=== PATIENT | female | born 1950 | race Caucasian/White ===

== ENCOUNTER 2019-01-06 14:20 | Emergency (ER) | payer OTHER ==
--- OUTSIDE RECORDS SUMMARY | 2019-01-06 14:28 | XMS REPORT ---
:1950 [facility] Address [address] [place] [address] Dr. [address] [place] [id number] Care Team Providers Name Role Phone Unavailable Unavailable Unavailable Problems This patient has no known problems. Allergies, Adverse Reactions, Alerts This patient has no known allergies or adverse reactions. Medications This patient has no known medications.
--- OUTSIDE RECORDS SUMMARY | 2019-01-06 14:28 | XMS REPORT ---
:1950 Author Organization e[employer] Care Team Providers Name Role Phone Jose Woodson Provider Role Unavailable Allergies No Known Allergies Problems Problem Type Condition Code Onset Dates Condition Status Problem Abnormal mammogram R92.8 Active Problem Family history of breast cancer Z80.3 Active Problem Anxiety disorder F41.9 Active Problem Biliary dyskinesia K82.8 Active Problem Memory loss R41.3 Active Problem Benign essential HTN I10 Active Problem Osteoporosis M81.0 Active Problem Diverticulosis large intestine w/o K57.30 Active perforation or abscess w/o bleeding Problem Hypothyroidism E03.9 Active Assessment Benign essential HTN I10 Active Assessment Osteoporosis M81.0 Active Assessment Memory loss R41.3 Active Assessment Anxiety disorder F41.9 Active Assessment Hypothyroidism E03.9 Active Medications Medication Code Code Instructions Start End Status Dosage System Date Date Ramipril [facility] 01849743220 10 MG Orally Active 1 capsule Once a day [place] Thyroid [facility] 58120228383 15 MG Orally March 11, Active 1 tablet Once a day 2017 on an empty stomach (60 mg + 15 mg) Ecotrin Low [facility] 46565513354 81 MG Orally Active 1 tablet Strength Once a day Xanax [facility] 74549295564 0.25 MG Orally Active 1 tablet once a day PRN Vitamin B12 [facility] 88155676499 1000 MCG Orally Active 1 tablet Once a day Carvedilol [facility] 71587570923 12.5 MG Orally Active 1 tab BID Biotin Maximum [facility] 10273329888 5000 MCG Orally Active 1 capsule Strength Once a day Folic Acid [facility] 75700427548 400 MCG Orally Active 1 tablet Once a day Zofran [facility] 90928131582 4 MG Orally Active not defined Singulair [facility] 63076964675 10 MG Orally Active 1 tablet Once a day in the evening Vitamin D3 [facility] 60843345282 2000 UNIT Orally Active 1 capsule Once a day Magnesium [facility] 05644132649 250 MG Orally Active 1 tablet Once a day with a meal [place] Thyroid [facility] 06786652779 60 MG Orally Active 1 tablet Once a day on an empty stomach (60 mg + 15 mg) [place] Thyroid [facility] 79782336568 60 Active TAKE ONE TABLET BY MOUTH DAILY Potassium [facility] 43769383164 550 MG Orally Active 1 tablet Gluconate Once a day Claritin [facility] 79941858218 10 MG Orally Active 1 tablet Once a day CoQ10 [facility] 56360987177 100 MG Orally Active 1 capsule Once a day with a meal Loratadine [facility] 22344021636 5 MG/5ML Orally Active 10 ml Once a day Turmeric [facility] 22632490274 500 MG Orally Active not defined Results No Known Results Summary Purpose eClinicalWorks Submission
--- OUTSIDE RECORDS SUMMARY | 2019-01-06 14:28 | XMS REPORT ---
:1950 Author Organization [employer] Care Team Providers Name Role Phone WoodsonJose Provider Role Unavailable Allergies No Known Allergies Problems Problem Type Condition Code Onset Dates Condition Status Problem Family history of breast cancer Z80.3 Active Problem Osteoporosis M81.0 Active Problem Abnormal mammogram R92.8 Active Assessment Benign essential HTN I10 Active Problem Memory loss R41.3 Active Problem Anxiety disorder F41.9 Active Problem Vascular dementia without behavioral F01.50 Active disturbance Problem Hypothyroidism E03.9 Active Problem Benign essential HTN I10 Active Problem Biliary dyskinesia K82.8 Active Problem Diverticulosis large intestine w/o K57.30 Active perforation or abscess w/o bleeding Medications Medication Code System Code Instructions Start Date End Date Status Dosage Carvedilol [facility] 88200035422 12.5 MG Orally Active 1 tab BID Results No Known Results Summary Purpose [employer] Submission
--- OUTSIDE RECORDS SUMMARY | 2019-01-06 14:28 | XMS REPORT ---
:1950 Author Organization [employer] Care Team Providers Name Role Phone Jose Woodson Provider Role Unavailable Allergies No Known Allergies Problems Problem Type Condition Code Onset Dates Condition Status Problem Abnormal mammogram R92.8 Active Problem Family history of breast cancer Z80.3 Active Assessment Hypothyroidism E03.9 Active Problem Anxiety disorder F41.9 Active Problem Biliary dyskinesia K82.8 Active Problem Memory loss R41.3 Active Problem Benign essential HTN I10 Active Problem Osteoporosis M81.0 Active Problem Diverticulosis large intestine w/o K57.30 Active perforation or abscess w/o bleeding Problem Hypothyroidism E03.9 Active Medications Medication Code Code Instructions Start End Status Dosage System Date Date [place] Thyroid [facility] 50439302053 60 MG Orally Inactive 1 tablet Once a day on an empty stomach (60 mg + 15 mg) [place] Thyroid [facility] 13032914167 60 MG Orally Active 1 tab on Once a day an empty stomach with 15mg=75mg Ecotrin Low [facility] 13155063065 81 MG Orally Active 1 tablet Strength Once a day CoQ10 [facility] 48188554745 100 MG Orally Active 1 capsule Once a day with a meal Zofran [facility] 42187630159 4 MG Orally Active not defined Claritin [facility] 61968366463 10 MG Orally Active 1 tablet Once a day Loratadine [facility] 38612901504 5 MG/5ML Orally Active 10 ml Once a day Singulair [facility] 29517645518 10 MG Orally Active 1 tablet Once a day in the evening Turmeric [facility] 38384517657 500 MG Orally Active not defined Ramipril [facility] 33388642504 10 MG Orally Active 1 capsule Once a day Carvedilol [facility] 21893689770 12.5 MG Orally Active 1 tab BID Vitamin D3 [facility] 00200407091 2000 UNIT Active 1 capsule Orally Once a day Magnesium [facility] 41914380241 250 MG Orally Active 1 tablet Once a day with a meal [place] Thyroid [facility] 70297187735 60 Active TAKE ONE TABLET BY MOUTH DAILY [place] Thyroid [facility] 77264658913 15 MG Orally March 11, Active 1 tablet Once a day 2017 on an empty stomach with 60mg=75mg Biotin Maximum [facility] 09190430936 5000 MCG Orally Active 1 capsule Strength Once a day Xanax [facility] 11580808992 0.25 MG Orally Active 1 tablet once a day PRN Folic Acid [facility] 64605052042 400 MCG Orally Active 1 tablet Once a day Vitamin B12 [facility] 84007632742 1000 MCG Orally Active 1 tablet Once a day Potassium [facility] 63457679393 550 MG Orally Active 1 tablet Gluconate Once a day Results No Known Results Summary Purpose eClinicalWorks Submission
--- OUTSIDE RECORDS SUMMARY | 2019-01-06 14:28 | XMS REPORT ---
:1950 Author Organization eClinicalWorks Care Team Providers Name Role Phone Jaskaran Woodsonh Provider Role Unavailable Allergies, Adverse Reactions, Alerts Substance Reaction Event Type Flagyl Info Not Available Drug Allergy Demerol Info Not Available Drug Allergy Amlodipine Besylate Info Not Available Drug Allergy Alendronate Sodium Info Not Available Drug Allergy Problems Problem Type Condition Code Onset Dates Condition Status Problem Family history of breast cancer Z80.3 Active Problem Osteoporosis M81.0 Active Problem Abnormal mammogram R92.8 Active Problem Memory loss R41.3 Active Problem Anxiety disorder F41.9 Active Problem Vascular dementia without behavioral F01.50 Active disturbance Problem Hypothyroidism E03.9 Active Problem Benign essential HTN I10 Active Problem Biliary dyskinesia K82.8 Active Problem Diverticulosis large intestine w/o K57.30 Active perforation or abscess w/o bleeding Assessment Memory loss R41.3 Active Assessment Renal insufficiency N28.9 Active Assessment Osteoporosis M81.0 Active Assessment Vascular dementia without behavioral F01.50 Active disturbance Assessment Anxiety disorder F41.9 Active Assessment Hypothyroidism E03.9 Active Assessment Benign essential HTN I10 Active Medications Medication Code Code Instructions Start End Status Dosage System Date Date Folic Acid [facility] 52185370421 400 MCG Orally Active 1 tablet Once a day Ramipril [facility] 88128346082 10 MG Orally Inactive 1 capsule Once a day Vitamin B12 [facility] 74662651743 1000 MCG Orally Active 1 tablet Once a day Potassium [facility] 61017191137 550 MG Orally Active 1 tablet Gluconate Once a day Loratadine [facility] 03978184504 5 MG/5ML Orally Active 10 ml Once a day Biotin [facility] 77150518581 5000 MCG Orally Active 1 capsule Maximum Once a day Strength Loratadine [facility] 31763896065 5 MG/5ML Orally Active 10 ml Once a day [place] [facility] 33439131167 60 MG Orally Active 1 tablet Thyroid Once a day on an empty stomach (60 mg + 15 mg) Turmeric [facility] 64054101767 500 MG Orally Active not defined Singulair [facility] 15338056058 10 MG Orally Active 1 tablet Once a day in the evening Xanax [facility] 12521420559 0.25 MG Orally Active 1 tablet once a day PRN Claritin [facility] 46644726253 10 MG Orally Active 1 tablet Once a day Zofran [facility] 34559839016 4 MG Orally Active not defined Ramipril [facility] 79973654606 10 MG Orally Active 1 capsule BID Carvedilol [facility] 91817909974 12.5 MG Orally Active 1 tab BID Magnesium [facility] 18730585750 250 MG Orally Active 1 tablet Once a day with a meal [place] [facility] [address]-88 60 MG Orally Active 1 tablet Thyroid Once a day on an empty stomach CoQ10 [facility] 25906411458 100 MG Orally Active 1 capsule Once a day with a meal Ecotrin Low [facility] 47472618941 81 MG Orally Active 1 tablet Strength Once a day Vitamin D3 [facility] 48030224287 2000 UNIT Active 1 capsule Orally Once a day Results No Known Results Summary Purpose eClinicalWorks Submission
--- OUTSIDE RECORDS SUMMARY | 2019-01-06 14:28 | XMS REPORT ---
[...] Start End Status Dosage System Date Date Biotin Maximum [facility] 85648963454 5000 MCG Orally Active 1 capsule Strength Once a day Zofran [facility] 97874672708 4 MG Orally Active not defined Folic Acid [facility] 47492726699 400 MCG Orally Active 1 tablet Once a day Ramipril [facility] [address]-16 10 MG Orally Active 1 capsule Twice a day Turmeric [facility] 41308557710 500 MG Orally Active not defined Vitamin B12 [facility] 71479815350 1000 MCG Orally Active 1 tablet Once a day Singulair [facility] 97491768016 10 MG Orally Active 1 tablet Once a day in the evening Loratadine [facility] 76097420584 5 MG/5ML Orally Active 10 ml Once a day Ecotrin Low [facility] 32006311491 81 MG Orally Active 1 tablet Strength Once a day [place] Thyroid [facility] 39761123717 15 MG Orally March 11, Active 1 tablet Once a day 2017 on an empty stomach with 60mg=75mg Carvedilol [place] 73080510571 12.5 MG Orally Active 1 tab BID Vitamin D3 [facility] 27069965460 2000 UNIT Active 1 capsule Orally Once a day Potassium [facility] 11413301222 550 MG Orally Active 1 tablet Gluconate Once a day [place] Thyroid [facility] 15691195263 60 MG Orally Active 1 tab on Once a day an empty stomach with 15mg=75mg CoQ10 [facility] 05868748728 100 MG Orally Active 1 capsule Once a day with a meal Magnesium [facility] 27069987829 250 MG Orally Active 1 tablet Once a day with a meal Claritin [facility] 73945754187 10 MG Orally Active 1 tablet Once a day Xanax [facility] 54114904647 0.25 MG Orally Active 1 tablet once a day PRN Results No Known Results Summary Purpose eClinicalWorks Submission
--- OUTSIDE RECORDS SUMMARY | 2019-01-06 14:28 | XMS REPORT ---
:1950 Author Organization eClinicalWorks Care Team Providers Name Role Phone Chintan Jose Provider Role Unavailable Allergies No Known Allergies [...] w/o bleeding Problem Hypothyroidism E03.9 Active Medications No Known Medications Results No Known Results Summary Purpose [employer] Submission
--- OUTSIDE RECORDS SUMMARY | 2019-01-06 14:29 | XMS REPORT ---
:1950 Author Organization eClinicalWorks Care Team Providers Name Role Phone Jose Woodson Provider Role Unavailable Allergies No Known Allergies Problems Problem Type Condition Code Onset Dates Condition Status Problem Abnormal mammogram R92.8 Active Problem Benign essential HTN I10 Active Problem Osteoporosis M81.0 Active Problem Family history of breast cancer Z80.3 Active Problem Vascular dementia without behavioral F01.50 Active disturbance Problem Memory loss R41.3 Active Problem Allergic rhinitis, unspecified J30.9 Active seasonality, unspecified trigger Problem Diverticulosis large intestine w/o K57.30 Active perforation or abscess w/o bleeding Problem Hypothyroidism E03.9 Active Problem Anxiety disorder F41.9 Active Problem Biliary dyskinesia K82.8 Active Medications No Known Medications Results No Known Results Summary Purpose eClinicalWorks Submission
--- OUTSIDE RECORDS SUMMARY | 2019-01-06 14:29 | XMS REPORT ---
:1950 Author Organization eClinicalWorks Care Team Providers Name Role Phone WoodsonJose Provider Role Unavailable Allergies No Known Allergies Problems Problem Type Condition Code Onset Dates Condition Status Problem Abnormal mammogram R92.8 Active Problem Benign essential HTN I10 Active Problem Osteoporosis M81.0 Active Assessment Benign essential HTN I10 Active Problem Family history of breast cancer Z80.3 Active Problem Vascular dementia without behavioral F01.50 Active disturbance Problem Memory loss R41.3 Active Problem Allergic rhinitis, unspecified J30.9 Active seasonality, unspecified trigger Problem Diverticulosis large intestine w/o K57.30 Active perforation or abscess w/o bleeding Problem Hypothyroidism E03.9 Active Problem Anxiety disorder F41.9 Active Problem Biliary dyskinesia K82.8 Active Medications Medication Code Code Instructions Start End Status Dosage System Date Date [place] Thyroid [facility] 67220138736 60 MG Orally Active 1 tablet Once a day on an empty stomach Carvedilol [facility] 24468428130 12.5 MG Orally Active 1 tab twice a day Results No Known Results Summary Purpose [employer]ClinicalWorks Submission
--- OUTSIDE RECORDS SUMMARY | 2019-01-06 14:29 | XMS REPORT ---
:1950 Author Organization eClinicalWorks Care Team Providers Name Role Phone WoodsonJaskaranh Provider Role Unavailable Allergies, Adverse Reactions, Alerts Substance Reaction Event Type Flagyl Info Not Available Drug Allergy Demerol Info Not Available Drug Allergy Amlodipine Besylate Info Not Available Drug Allergy Alendronate Sodium Info Not Available Drug Allergy Problems Problem Type Condition Code Onset Dates Condition Status Problem Abnormal mammogram R92.8 Active Problem Benign essential HTN I10 Active Problem Osteoporosis M81.0 Active Assessment Chronic sinusitis, unspecified J32.9 Active location Assessment Allergic rhinitis, unspecified J30.9 Active seasonality, unspecified trigger Problem Family history of breast cancer Z80.3 Active Problem Vascular dementia without behavioral F01.50 Active disturbance Problem Memory loss R41.3 Active Problem Allergic rhinitis, unspecified J30.9 Active seasonality, unspecified trigger Problem Diverticulosis large intestine w/o K57.30 Active perforation or abscess w/o bleeding Problem Hypothyroidism E03.9 Active Problem Anxiety disorder F41.9 Active Problem Biliary dyskinesia K82.8 Active Medications Medication Code Code Instructions Start End Date Status Dosage System Date Magnesium [facility] 02778092177 250 MG Orally Active 1 tablet Once a day with a meal Turmeric [facility] 35480983347 500 MG Orally Active not defined Carvedilol [facility] 10942408370 12.5 MG Orally Active 1 tab BID Claritin [facility] 84774689584 10 MG Orally Active 1 tablet Once a day Ecotrin Low [facility] 70161264031 81 MG Orally Active 1 tablet Strength Once a day Ramipril [place] 70849201703 10 MG Orally BID Active 1 capsule Vitamin B12 [facility] 04330906801 1000 MCG Orally Active 1 tablet Once a day [place] Thyroid [facility] 03943008103 60 MG Orally Active 1 tablet Once a day on an empty stomach (60 mg 15 mg) Tessalon [facility] 99021330797 100 MG Orally October Active 1 capsule [place] Three times a 2018 as needed day Zofran [facility] 05231354358 4 MG Orally Active not defined Singulair [facility] 19869737775 10 MG Orally Active 1 tablet Once a day in the evening Folic Acid [facility] 44268701185 400 MCG Orally Active 1 tablet Once a day CoQ10 [facility] 87121523899 100 MG Orally Active 1 capsule Once a day with a meal Biotin Maximum [facility] 36514627728 5000 MCG Orally Active 1 capsule Strength Once a day [place] Thyroid [facility] 18322645366 60 MG Orally Active 1 tablet Once a day on an empty stomach Vitamin D3 [facility] 48441393801 2000 UNIT Orally Active 1 capsule Once a day Potassium [facility] 16985954293 550 MG Orally Active 1 tablet Gluconate Once a day Xanax [facility] 52077716924 0.25 MG Orally Active 1 tablet once a day PRN Results No Known Results Summary Purpose eClinicalWorks Submission
--- OUTSIDE RECORDS SUMMARY | 2019-01-06 14:29 | XMS REPORT ---
[...] or abscess w/o bleeding Medications Medication Code Code Instructions Start End Date Status [facility]osage [facility] MG Orally October Active 1 capsule [place] Three times a 2018 as needed day Results No Known Results Summary Purpose eClinicalWorks Submission
--- OUTSIDE RECORDS SUMMARY | 2019-01-06 14:29 | XMS REPORT ---
[...] Active Problem Abnormal mammogram R92.8 Active Assessment Cough R05 Active Assessment Upper respiratory tract infection, J06.9 Active unspecified type Problem Memory loss R41.3 Active Problem Anxiety disorder F41.9 Active Problem Vascular dementia without behavioral F01.50 Active disturbance Problem Hypothyroidism E03.9 Active Problem Benign essential HTN I10 Active Problem Biliary dyskinesia K82.8 Active Problem Diverticulosis large intestine w/o K57.30 Active perforation or abscess w/o bleeding Medications Medication Code Code Instructions Start End Date Status Dosage System Date CoQ10 [facility] 52594558203 100 MG Orally Active 1 capsule Once a day with a meal Vitamin B12 [facility] 24998351550 1000 MCG Orally Active 1 tablet Once a day Magnesium [facility] 93274891406 250 MG Orally Active 1 tablet Once a day with a meal [place] Thyroid [facility] [address]-55 60 MG Orally Active 1 tablet Once a day on an empty stomach Xanax [facility] 78678984147 0.25 MG Orally Active 1 tablet once a day PRN Loratadine [facility] 20873649521 5 MG/5ML Orally Active 10 ml Once a day Carvedilol [place] 94008185573 12.5 MG Orally Active 1 tab BID Vitamin D3 [place] 75682801424 2000 UNIT Active 1 capsule Orally Once a day Ramipril ND 26964712271 10 MG Orally Active 1 capsule BID [place] Thyroid [facility] 08539733178 60 MG Orally Active 1 tablet Once a day on an empty stomach (60 mg 15 mg) Singulair [facility] 86676018627 10 MG Orally Active 1 tablet Once a day in the evening Biotin Maximum [facility] 30182223478 5000 MCG Orally Active 1 capsule Strength Once a day Folic Acid [facility] 93526388094 400 MCG Orally Active 1 tablet Once a day Ecotrin Low [facility] 03331520935 81 MG Orally Active 1 tablet Strength Once a day Claritin [facility] 58589277947 10 MG Orally Active 1 tablet Once a day Benzonatate [facility] 17672028023 200 MG Orally Oct 13October Active 1 capsule Three times a 2018 day Turmeric [facility] 33917016053 500 MG Orally Active not defined Potassium [facility] 87492519007 550 MG Orally Active 1 tablet Gluconate Once a day Zofran [facility] 65729470991 4 MG Orally Active not defined Results No Known Results Summary Purpose eClinicalWorks Submission
--- OUTSIDE RECORDS SUMMARY | 2019-01-06 14:29 | XMS REPORT ---
:1950 Author Organization eClinicalWorks Care Team Providers Name Role Phone Jose Woodson Provider Role Unavailable Allergies No Known Allergies Problems Problem Type Condition Code Onset Dates Condition Status Problem Family history of breast cancer Z80.3 Active Problem Osteoporosis M81.0 Active Problem Abnormal mammogram R92.8 Active Assessment Encounter for screening mammogram Z12.31 Active for breast cancer Problem Memory loss R41.3 Active Problem Anxiety disorder F41.9 Active Problem Vascular dementia without behavioral F01.50 Active disturbance Problem Hypothyroidism E03.9 Active Problem Benign essential HTN I10 Active Problem Biliary dyskinesia K82.8 Active Problem Diverticulosis large intestine w/o K57.30 Active perforation or abscess w/o bleeding Medications No Known Medications Results No Known Results Summary Purpose eClinicalWorks Submission
--- OUTSIDE RECORDS SUMMARY | 2019-01-06 14:29 | XMS REPORT ---
:1950 Author Organization [employer] Care Team Providers Name Role Phone WoodsonJose Provider Role Unavailable Allergies, Adverse Reactions, Alerts Substance Reaction Event Type Flagyl Info Not Available Drug Allergy Demerol Info Not Available Drug Allergy Amlodipine Besylate Info Not Available Drug Allergy Alendronate Sodium Info Not Available Drug Allergy Problems Problem Type Condition Code Onset Dates Condition Status Problem Abnormal mammogram R92.8 Active Problem Benign essential HTN I10 Active Problem Osteoporosis M81.0 Active Problem Vascular dementia without behavioral F01.50 Active disturbance Assessment Renal insufficiency N28.9 Active Problem Memory loss R41.3 Active Assessment Memory loss R41.3 Active Assessment Adult BMI 29.0-29.9 kg/sq m Z68.29 Active Problem Allergic rhinitis, unspecified J30.9 Active seasonality, unspecified trigger Problem Diverticulosis large intestine w/o K57.30 Active perforation or abscess w/o bleeding Problem Hypothyroidism E03.9 Active Problem Anxiety disorder F41.9 Active Problem Biliary dyskinesia K82.8 Active Assessment Chronic sinusitis, unspecified J32.9 Active location Assessment Vascular dementia without behavioral F01.50 Active disturbance Assessment Anxiety disorder F41.9 Active Assessment Benign essential HTN I10 Active Assessment Medicare annual wellness visit, Z00.00 Active subsequent Assessment Hypothyroidism E03.9 Active Assessment Allergic rhinitis, unspecified J30.9 Active seasonality, unspecified trigger Assessment History of fall within past 90 days Z91.81 Active Assessment Osteoporosis M81.0 Active Problem Family history of breast cancer Z80.3 Active Medications Medication Code Code Instructions Start End Status Dosage System Date Date Potassium ND 37220809035 550 MG Orally Active 1 tablet Gluconate Once a day Turmeric ND 50333096876 500 MG Orally Active not defined Ramipril ND 28852670114 10 MG Orally BID Active 1 capsule [place] Thyroid ND 40168321331 60 MG Orally Active 1 tablet on Once a day an empty stomach Prolia ND 98394457673 60 MG/ML May 01, Active as directed Subcutaneous 2019 Carvedilol [facility] 10215641178 12.5 MG Orally Active 1 tab BID Vitamin B12 ND 30013680647 1000 MCG Orally Active 1 tablet Once a day Zofran [facility] 58329269075 4 MG Orally Active not defined Singulair [facility] 31681681384 10 MG Orally Active 1 tablet in Once a day the evening Magnesium [facility] 77336063280 250 MG Orally Active 1 tablet Once a day with a meal Vitamin D3 [facility] 76823579105 2000 UNIT Orally Active 1 capsule Once a day Folic Acid [facility] 05590043895 400 MCG Orally Active 1 tablet Once a day Ecotrin Low [facility] 57384718266 81 MG Orally Active 1 tablet Strength Once a day Claritin [facility] 92872319781 10 MG Orally Active 1 tablet Once a day [place] Thyroid [facility] 23969155910 60 MG Orally Active 1 tablet on Once a day an empty stomach Xanax [facility] 88936338784 0.25 MG Orally Active 1 tablet once a day PRN CoQ10 [facility] 37455470159 100 MG Orally Active 1 capsule Once a day with a meal Biotin Maximum [facility] 60595008207 5000 MCG Orally Active 1 capsule Strength Once a day Results No Known Results Summary Purpose [employer]ClinicalWorks Submission
--- OUTSIDE RECORDS SUMMARY | 2019-01-06 14:29 | XMS REPORT ---
[...] Start End Status Dosage System Date Date [place] Thyroid [facility] 36824262078 60 MG Orally Active 1 tablet Once a day on an empty stomach (60 mg 15 mg) [place] Thyroid [facility] [address]-29 60 MG Orally Active 1 tablet Once a day on an empty stomach Potassium [facility] 05005253885 550 MG Orally Active 1 tablet Gluconate Once a day CoQ10 [facility] 36228404880 100 MG Orally Active 1 capsule Once a day with a meal Singulair [facility] 18454313708 10 MG Orally Active 1 tablet Once a day in the evening Vitamin D3 [facility] 89301098548 2000 UNIT Active 1 capsule Orally Once a day Loratadine [facility] 31315322497 5 MG/5ML Orally Active 10 ml Once a day Magnesium [facility] 21854723611 250 MG Orally Active 1 tablet Once a day with a meal Biotin Maximum [facility] 67222503758 5000 MCG Orally Active 1 capsule Strength Once a day Vitamin B12 [facility] 58577261784 1000 MCG Orally Active 1 tablet Once a day Turmeric [facility] 46025135191 500 MG Orally Active not defined Zofran ND 02417801746 4 MG Orally Active not defined Xanax [facility] 13162778726 0.25 MG Orally Active 1 tablet once a day PRN Ecotrin Low [facility] 09361248599 81 MG Orally Active 1 tablet Strength Once a day Claritin [facility] 76077852277 10 MG Orally Active 1 tablet Once a day Carvedilol [facility] 67343711702 12.5 MG Orally Active 1 tab BID Ramipril [facility] 71312322825 10 MG Orally Active 1 capsule BID Folic Acid [facility] 35041975171 400 MCG Orally Active 1 tablet Once a day Results No Known Results Summary Purpose [employer]ClinicalWorks Submission
--- OUTSIDE RECORDS SUMMARY | 2019-01-06 14:30 | XMS REPORT ---
[...] Biliary dyskinesia K82.8 Active Medications Medication Code System Code Instructions Start End Date Status Dosage Date Ramipril [facility] 73502227439 10 MG Orally BID Active 1 capsule Results No Known Results Summary Purpose [employer] Submission
[2019-01-06 15:39] LABS: Urine Amorphous Sediment 1+ /HPF (NONE SEEN); Urine Bacteria 20-50 /HPF (<20); Urine RBC <5 /HPF (NONE SEEN)
[2019-01-06 15:40] LABS: Urine Blood NEGATIVE (NEG); Urine Glucose NEGATIVE (NEG); Urine Protein 1+ (NEG); Urine Specific Gravity >1.030 (1.005-1.030)
[2019-01-06 15:40] LABS: Urine Culture Reflex Order REFLEXED
--- NOTE | 2019-01-06 15:53 | RAD REPORT ---
EXAM DESCRIPTION: RAD - Hip Left 2 View - 01/06/2019 3:42 pm CLINICAL HISTORY: Left hip pain status post injury FINDINGS: No fracture or dislocation is seen. Osteoporosis
--- NOTE | 2019-01-06 16:03 | RAD REPORT ---
EXAM DESCRIPTION: RAD - Spine Thoracic W/Swimmers - 01/06/2019 3:49 pm CLINICAL HISTORY: Back pain FINDINGS: The alignment of the thoracic spine is satisfactory. No fracture is seen. No dislocation Osteoporosis Mild spondylosis
--- NOTE | 2019-01-06 16:25 | ER ---
Nurse's Notes [facility] Name: Laisha Vasquez Age: 68 yrs Sex: Female : 1950 Arrival Date: 01/06/2019 Time: 14:23 Bed 27 Private MD: Diagnosis: Fall on same level from slipping, tripping and stumbling;Mid back pain from fall;Pain in left hip-from fall Presentation: 01/06 14:25 Presenting complaint: Patient states: Back pain after a fall 2 weeks ago, pt la1 ambulatory, transitions from sitting to standing without difficulty, denies loss of continence. Transition of care: patient was not received from another setting of care. Onset of symptoms was January 06, 2019. Risk Assessment: Do you want to hurt yourself or someone else? Patient reports no desire to harm self or others. Initial Sepsis Screen: Does the patient meet any 2 criteria? No. Patient's initial sepsis screen is negative. Does the patient have a suspected source of infection? No. Patient's initial sepsis screen is negative. Care prior to arrival:. 14:25 Method Of Arrival: Ambulatory la1 14:25 Acuity: BEV 4 la1 Historical: - Allergies: 14:25 amlodipine; la1 14:25 Codeine; la1 14:25 Demerol; la1 14:25 METRONIDAZOLE; la1 - PMHx: 14:25 Hypertension; Hypothyroidism; la1 - Immunization history:: Adult Immunizations up to date. - Social history:: Smoking status: Patient/guardian denies using tobacco. - Ebola Screening: : No symptoms or risks identified at this time. Screenin:14 Abuse screen: Denies threats or abuse. Denies injuries from another. Nutritional mg2 screening: No deficits noted. Tuberculosis screening: No symptoms or risk factors identified. Fall Risk Fall in past 12 months (25 points). Assessment: 15:07 General: Appears in no apparent distress. comfortable, Behavior is calm, cooperative. mg2 Pain: Complains of pain in back Pain does not radiate. Pain currently is 5 out of 10 on a pain scale. Quality of pain is described as aching. Neuro: Level of Consciousness is awake, alert, obeys commands, Oriented to person, place, time, situation. Cardiovascular: Capillary refill < 3 seconds Patient's skin is warm and dry. Respiratory: Airway is patent Respiratory effort is even, unlabored, Respiratory pattern is regular, symmetrical. GI: No signs and/or symptoms were reported involving the gastrointestinal system. : pls see urine dip. EENT: No signs and/or symptoms were reported regarding the EENT system. Derm: Skin is intact, is healthy with good turgor, Skin is pink, warm \T\ dry. normal. Musculoskeletal: Circulation, motion, and sensation intact. Capillary refill < 3 seconds. 16:37 Reassessment: Patient states feeling better. mg2 Vital Signs: 14:27 BP 113 / 57; Pulse 62; Resp 16; Temp 98.5; Pulse Ox 98% on R/A; Weight 72.57 kg; Height la1 5 ft. 2 in. (157.48 cm); Pain 9/10; 16:36 BP 120 / 78; Pulse 65; Resp 18; Temp 98; Pulse Ox 100% on R/A; Pain 2/10; mg2 14:27 Body Mass Index 29.26 (72.57 kg, 157.48 cm) la1 ED Course: 14:23 Patient arrived in ED. mr 14:26 Triage completed. la1 14:26 Arm band placed on left wrist. la1 14:48 Rossi Herron RN is Primary Nurse. ls4 14:53 Ezio Barrientos PA is PHCP. cp 14:53 Yordan Gandhi MD is Attending Physician. cp 15:43 XRAY Hip LEFT 2 view In Process Unspecified. EDMS 15:48 XRAY Thoracic Spine (W/swimmers) In Process Unspecified. EDMS 16:37 Patient has correct armband on for positive identification. mg2 16:37 No provider procedures requiring assistance completed. Patient did not have IV access mg2 during this emergency room visit. Administered Medications: No medications were administered Outcome: 16:25 Discharge ordered by MD. cp 16:37 Discharged to home ambulatory. mg2 16:37 Condition: good 16:37 Discharge instructions given to patient, Instructed on discharge instructions, follow up and referral plans. medication usage, Demonstrated understanding of instructions, follow-up care, medications, Prescriptions given X 2. 16:38 Patient left the ED. mg2 Signatures: Dispatcher [employer] EDFL Angi Eaton mr Jimbo Hernandez RN RN la1 Ezio Barrientos PA PA cp Gardose, Michele, RN RN mg2 Rossi Herron, RN RN ls4
--- NOTE | 2019-01-06 16:25 | EDPHYS ---
Physician Documentation [facility] Name: Laisha Vasquez Age: 68 yrs Sex: Female : 1950 Arrival Date: 01/06/2019 Time: 14:23 Bed 27 Private MD: ED Physician Yordan Gandhi HPI: 01/06 15:11 This 68 yrs old Female presents to ER via Ambulatory with complaints of Back cp Pain. 15:11 The patient presents with pain that is acute, and an injury. The symptoms are located cp in the thoracic area. Onset: The symptoms/episode began/occurred 2-3 weeks ago, Easter weekend, after fall backwards onto back from standing position while in parking lot. The pain does not radiate. Associated signs and symptoms: Pertinent positives: left hip pain, Pertinent negatives: abdominal pain, chest pain, fever, incontinence, numbness, weakness. Historical: - Allergies: 14:25 amlodipine; la1 14:25 Codeine; la1 14:25 Demerol; la1 14:25 METRONIDAZOLE; la1 - PMHx: 14:25 Hypertension; Hypothyroidism; la1 - Immunization history:: Adult Immunizations up to date. - Social history:: Smoking status: Patient/guardian denies using tobacco. - Ebola Screening: : No symptoms or risks identified at this time. ROS: 15:20 Constitutional: Negative for body aches, chills, fever, poor PO intake. cp 15:20 Eyes: Negative for injury, pain, redness, and discharge. cp 15:20 ENT: Negative for drainage from ear(s), ear pain, sore throat, difficulty swallowing, difficulty handling secretions. 15:20 Neck: Negative for pain with movement, pain at rest, stiffness, bony tenderness. 15:20 Cardiovascular: Negative for chest pain, edema, palpitations. 15:20 Respiratory: Negative for cough, shortness of breath, wheezing. 15:20 Abdomen/GI: Negative for abdominal pain, nausea, vomiting, and diarrhea, black/tarry stool, rectal bleeding. 15:20 Back: Positive for pain at rest, pain with movement, of the thoracic area. 15:20 MS/extremity: Positive for pain, tenderness, of the left hip, Negative for decreased range of motion, deformity, paresthesias. 15:20 Neuro: Negative for altered mental status, headache, loss of consciousness, numbness, syncope, weakness. 15:20 All other systems are negative. Exam: 15:25 Constitutional: The patient appears in no acute distress, alert, awake, non-toxic, well cp developed, well nourished. 15:25 Head/Face: Normocephalic, atraumatic. cp 15:25 Eyes: Periorbital structures: appear normal, Conjunctiva: normal, no exudate, no injection, Lids and lashes: appear normal, bilaterally. 15:25 ENT: External ear(s): are unremarkable, Nose: is normal, Mouth: Lips: moist, Oral mucosa: pink and intact, moist, Posterior pharynx: is normal, airway is patent, no erythema, no exudate. 15:25 Neck: C-spine: vertebral tenderness, is not appreciated, crepitus, is not appreciated, ROM/movement: is normal, is supple, without pain, no range of motions limitations, no nuchal rigidity. 15:25 Chest/axilla: Inspection: normal, Palpation: is normal, no crepitus, no tenderness. 15:25 Cardiovascular: Rate: normal, Rhythm: regular. 15:25 Respiratory: the patient does not display signs of respiratory distress, Respirations: normal, no use of accessory muscles, no retractions, no splinting, no tachypnea, labored breathing, is not present, Breath sounds: are clear throughout, no decreased breath sounds, no stridor, no wheezing. 15:25 Abdomen/GI: Inspection: abdomen appears normal, Bowel sounds: active, all quadrants, Palpation: abdomen is soft and non-tender, in all quadrants. 15:25 Back: pain, that is mild, of the thoracic area, ROM is painful, with flexion, muscle spasm, is not present, Straight leg raises: of both lower extremities does not illicit pain. 15:25 Musculoskeletal/extremity: Joints: All joints are normal except the left hip displays tenderness. 15:25 Skin: no rash present. 15:25 Neuro: Orientation: to person, place \T\ time. Mentation: is normal, Cerebellar function: is grossly normal, Motor: moves all fours, strength is normal, Sensation: is normal, Gait: is steady. Vital Signs: 14:27 BP 113 / 57; Pulse 62; Resp 16; Temp 98.5; Pulse Ox 98% on R/A; Weight 72.57 kg; Height la1 5 ft. 2 in. (157.48 cm); Pain 9/10; 16:36 BP 120 / 78; Pulse 65; Resp 18; Temp 98; Pulse Ox 100% on R/A; Pain 2/10; mg2 14:27 Body Mass Index 29.26 (72.57 kg, 157.48 cm) la1 MDM: 14:53 Patient medically screened. cp 16:00 Differential diagnosis: Fracture spinal injury, Ureterolithiasis vertebral fracture. cp 16:25 Data reviewed: vital signs, nurses notes, radiologic studies, plain films, and as a cp result, I will discharge patient. 01/06 14:54 Order name: Urine Microscopic Only; Complete Time: 16:19 cp 01/06 16:20 Interpretation: Normal except: UBACT 20-50; SQEPI 5-10. cp 01/06 15:15 Order name: Urine Dipstick--Ancillary (enter results); Complete Time: 16:19 bd 01/06 16:20 Interpretation: Normal except: USPGR >1.030; UKET 1+; UPROT 1+. 01/06 14:54 Order name: Urine Dipstick-Ancillary (obtain specimen); Complete Time: 15:07 cp 01/06 15:11 Order name: XRAY Hip LEFT 2 view; Complete Time: 16:19 cp 01/06 16:20 Interpretation: Report reviewed. 01/06 15:11 Order name: XRAY Thoracic Spine (W/swimmers); Complete Time: 16:19 cp 01/06 16:20 Interpretation: Report reviewed. 01/06 15:42 Order name: Urine Culture EDMS Administered Medications: No medications were administered Disposition: 16:56 Co-signature as Attending Physician, Yordan Gandhi MD. rn Disposition: 01/06/19 16:25 Discharged to Home. Impression: Fall on same level from slipping, tripping and stumbling, Mid back pain from fall, Pain in left hip - from fall. - Condition is Stable. - Discharge Instructions: Back Pain, Adult, Hip Pain, Back Exercises. - Prescriptions for Mobic 7.5 mg Oral Tablet - take 1 tablet by ORAL route once daily take with food; 20 tablet. Cyclobenzaprine 10 mg Oral Tablet - take 1 tablet by ORAL route every 8 hours As needed no driving while taking medication; 20 tablet. - Medication Reconciliation Form, Thank You Letter, Antibiotic Education, Prescription Opioid Use form. - Follow up: Private Physician; When: 1 - 2 days; Reason: Recheck today's complaints. - Problem is new. - Symptoms have improved. Signatures: Dispatcher [employer] EDMS Yordan Gandhi MD MD rn Attema, Lee, RN RN la1 Ezio Barrientos PA PA cp Gardose, Michele, RN RN mg2 Corrections: (The following items were deleted from the chart) 16:38 16:25 01/06/2019 16:25 Discharged to Home. Impression: Fall on same level from mg2 slipping, tripping and stumbling; Mid back pain from fall; Pain in left hip - from fall. Condition is Stable. Forms are Medication Reconciliation Form, Thank You Letter, Antibiotic Education, Prescription Opioid Use. Follow up: Private Physician; When: 1 - 2 days; Reason: Recheck today's complaints. Problem is new. Symptoms have improved. cp
== END 2019-01-06 16:38 | disposition home or self-care (01) ==
LOC: ER 14:20
DX: M54.9 Dorsalgia, unspecified (principal); M25.552 Pain in left hip; I10 Essential (primary) hypertension; E03.9 Hypothyroidism, unspecified; Z88.1 Allergy status to other antibiotic agents; Z88.5 Allergy status to narcotic agent
CPT/HCPCS: 72072; 81003; 81015; 87086; 87088; 99283

== ENCOUNTER 2019-02-01 15:15 | Emergency (ER) | payer OTHER ==
--- OUTSIDE RECORDS SUMMARY | 2019-02-01 15:18 | XMS REPORT ---
[...] End Status Dosage System Date Date Ramipril [facility] 54913858441 10 MG Orally Active 1 capsule Once a day [place] Thyroid [facility] 73959957303 15 MG Orally March 11, Active 1 tablet Once a day 2017 on an empty stomach (60 mg + 15 mg) Ecotrin Low [facility] 36538377778 81 MG Orally Active 1 tablet Strength Once a day Xanax [facility] 94120298607 0.25 MG Orally Active 1 tablet once a day PRN Vitamin B12 [facility] 71142735585 1000 MCG Orally Active 1 tablet Once a day Carvedilol [facility] 93224430030 12.5 MG Orally Active 1 tab BID Biotin Maximum [facility] 15235170277 5000 MCG Orally Active 1 capsule Strength Once a day Folic Acid [facility] 84459620595 400 MCG Orally Active 1 tablet Once a day Zofran [facility] 33836771307 4 MG Orally Active not defined Singulair [facility] 95383644615 10 MG Orally Active 1 tablet Once a day in the evening Vitamin D3 [facility] 33163665610 2000 UNIT Orally Active 1 capsule Once a day Magnesium [facility] 38015168062 250 MG Orally Active 1 tablet Once a day with a meal [place] Thyroid [facility] 22997977897 60 MG Orally Active 1 tablet Once a day on an empty stomach (60 mg + 15 mg) [place] Thyroid [facility] 04275616743 60 Active TAKE ONE TABLET BY MOUTH DAILY Potassium [facility] 92352715965 550 MG Orally Active 1 tablet Gluconate Once a day Claritin [facility] 99062576156 10 MG Orally Active 1 tablet Once a day CoQ10 [facility] 23572617020 100 MG Orally Active 1 capsule Once a day with a meal Loratadine [facility] 13993878321 5 MG/5ML Orally Active 10 ml Once a day Turmeric [facility] 67927472623 500 MG Orally Active not defined Results No Known Results Summary Purpose eClinicalWorks Submission
--- OUTSIDE RECORDS SUMMARY | 2019-02-01 15:18 | XMS REPORT ---
[...] Start End Status Dosage System Date Date [place] Thyroid [facility] 82553955507 60 MG Orally Inactive 1 tablet Once a day on an empty stomach (60 mg + 15 mg) [place] Thyroid [facility] 43954541550 60 MG Orally Active 1 tab on Once a day an empty stomach with 15mg=75mg Ecotrin Low [facility] 24997288037 81 MG Orally Active 1 tablet Strength Once a day CoQ10 [facility] 14203003462 100 MG Orally Active 1 capsule Once a day with a meal Zofran [facility] 11048367992 4 MG Orally Active not defined Claritin [facility] 43158684951 10 MG Orally Active 1 tablet Once a day Loratadine [facility] 06234204634 5 MG/5ML Orally Active 10 ml Once a day Singulair [facility] 86628548963 10 MG Orally Active 1 tablet Once a day in the evening Turmeric [facility] 85894248030 500 MG Orally Active not defined Ramipril [facility] 61444946776 10 MG Orally Active 1 capsule Once a day Carvedilol [facility] 69973726144 12.5 MG Orally Active 1 tab BID Vitamin D3 [facility] 46919814450 2000 UNIT Active 1 capsule Orally Once a day Magnesium [facility] 98357406288 250 MG Orally Active 1 tablet Once a day with a meal [place] Thyroid [facility] 17925371531 60 Active TAKE ONE TABLET BY MOUTH DAILY [place] Thyroid [facility] 76174141747 15 MG Orally March 11, Active 1 tablet Once a day 2017 on an empty stomach with 60mg=75mg Biotin Maximum [facility] 49554670128 5000 MCG Orally Active 1 capsule Strength Once a day Xanax [facility] 16249330852 0.25 MG Orally Active 1 tablet once a day PRN Folic Acid [facility] 25659577057 400 MCG Orally Active 1 tablet Once a day Vitamin B12 [facility] 74648529638 1000 MCG Orally Active 1 tablet Once a day Potassium [facility] 33186174575 550 MG Orally Active 1 tablet Gluconate Once a day Results No Known Results Summary Purpose [employer]ClinicalWorks Submission
--- OUTSIDE RECORDS SUMMARY | 2019-02-01 15:18 | XMS REPORT ---
:1950 [facility] Address [address] [place] [address] Dr. Parker [address] [place] [id number] Care Team Providers Name Role Phone Unavailable Unavailable Unavailable Problems This patient has no known problems. Allergies, Adverse Reactions, Alerts This patient has no known allergies or adverse reactions. Medications This patient has no known medications.
--- OUTSIDE RECORDS SUMMARY | 2019-02-01 15:19 | XMS REPORT ---
[...] Medications Results No Known Results Summary Purpose [employer] Submission
--- OUTSIDE RECORDS SUMMARY | 2019-02-01 15:19 | XMS REPORT ---
[...] Status Dosage System Date Date Biotin Maximum [facility] 62232328743 5000 MCG Orally Active 1 capsule Strength Once a day Zofran [facility] 44861932398 4 MG Orally Active not defined Folic Acid [facility] 20827543148 400 MCG Orally Active 1 tablet Once a day Ramipril [facility] [address]-20 10 MG Orally Active 1 capsule Twice a day Turmeric [facility] 11519319776 500 MG Orally Active not defined Vitamin B12 [facility] 00819709119 1000 MCG Orally Active 1 tablet Once a day Singulair [facility] 33536653449 10 MG Orally Active 1 tablet Once a day in the evening Loratadine [facility] 33474332742 5 MG/5ML Orally Active 10 ml Once a day Ecotrin Low [facility] 51610100012 81 MG Orally Active 1 tablet Strength Once a day [place] Thyroid [facility] 71761897314 15 MG Orally March 11, Active 1 tablet Once a day 2017 on an empty stomach with 60mg=75mg Carvedilol ND 63697750208 12.5 MG Orally Active 1 tab BID Vitamin D3 [facility] 30632371791 2000 UNIT Active 1 capsule Orally Once a day Potassium [facility] 37195424844 550 MG Orally Active 1 tablet Gluconate Once a day [place] Thyroid [facility] 13812696160 60 MG Orally Active 1 tab on Once a day an empty stomach with 15mg=75mg CoQ10 [facility] 05462875526 100 MG Orally Active 1 capsule Once a day with a meal Magnesium [facility] 87793402361 250 MG Orally Active 1 tablet Once a day with a meal Claritin [facility] 58189922537 10 MG Orally Active 1 tablet Once a day Xanax [facility] 96972281730 0.25 MG Orally Active 1 tablet once a day PRN Results No Known Results Summary Purpose [employer] Submission
--- OUTSIDE RECORDS SUMMARY | 2019-02-01 15:19 | XMS REPORT ---
[...] Start Date End Date Status Dosage Carvedilol [facility] 34300003898 12.5 MG Orally Active 1 tab BID Results No Known Results Summary Purpose [place] [employer] Submission
--- OUTSIDE RECORDS SUMMARY | 2019-02-01 15:19 | XMS REPORT ---
[...] Date Date Folic Acid [facility] 12961207729 400 MCG Orally Active 1 tablet Once a day Ramipril [facility] 96050867981 10 MG Orally Inactive 1 capsule Once a day Vitamin B12 [facility] 87943352067 1000 MCG Orally Active 1 tablet Once a day Potassium [facility] 04727632892 550 MG Orally Active 1 tablet Gluconate Once a day Loratadine [facility] 17576638804 5 MG/5ML Orally Active 10 ml Once a day Biotin [facility] 43699567221 5000 MCG Orally Active 1 capsule Maximum Once a day Strength Loratadine [facility] 38460853134 5 MG/5ML Orally Active 10 ml Once a day [place] [facility] 01494310927 60 MG Orally Active 1 tablet Thyroid Once a day on an empty stomach (60 mg + 15 mg) Turmeric [facility] 79204159211 500 MG Orally Active not defined Singulair [facility] 69108419641 10 MG Orally Active 1 tablet Once a day in the evening Xanax [facility] 73923070120 0.25 MG Orally Active 1 tablet once a day PRN Claritin [facility] 05146252010 10 MG Orally Active 1 tablet Once a day Zofran [facility] 78096333907 4 MG Orally Active not defined Ramipril [facility] 25748929892 10 MG Orally Active 1 capsule BID Carvedilol [facility] 82798176890 12.5 MG Orally Active 1 tab BID Magnesium [facility] 13267414111 250 MG Orally Active 1 tablet Once a day with a meal [place] [facility] [address]-51 60 MG Orally Active 1 tablet Thyroid Once a day on an empty stomach CoQ10 [facility] 51630924032 100 MG Orally Active 1 capsule Once a day with a meal Ecotrin Low [facility] 03561704403 81 MG Orally Active 1 tablet Strength Once a day Vitamin D3 [facility] 45091539011 2000 UNIT Active 1 capsule Orally Once a day Results No Known Results Summary Purpose eClinicalWorks Submission
--- OUTSIDE RECORDS SUMMARY | 2019-02-01 15:20 | XMS REPORT ---
[...] End Date Status Dosage System Date CoQ10 [facility] 46315059205 100 MG Orally Active 1 capsule Once a day with a meal Vitamin B12 [facility] 47172882796 1000 MCG Orally Active 1 tablet Once a day Magnesium [facility] 64437769724 250 MG Orally Active 1 tablet Once a day with a meal [place] Thyroid [facility] [address]-99 60 MG Orally Active 1 tablet Once a day on an empty stomach Xanax [facility] 76537212443 0.25 MG Orally Active 1 tablet once a day PRN Loratadine [facility] 85356743010 5 MG/5ML Orally Active 10 ml Once a day Carvedilol ND 92690194408 12.5 MG Orally Active 1 tab BID Vitamin D3 ND 61707747767 2000 UNIT Active 1 capsule Orally Once a day Ramipril ND 70722648229 10 MG Orally Active 1 capsule BID [place] Thyroid [facility] 45713190240 60 MG Orally Active 1 tablet Once a day on an empty stomach (60 mg 15 mg) Singulair [facility] 93283655469 10 MG Orally Active 1 tablet Once a day in the evening Biotin Maximum [facility] 92632158097 5000 MCG Orally Active 1 capsule Strength Once a day Folic Acid [facility] 30393857022 400 MCG Orally Active 1 tablet Once a day Ecotrin Low [facility] 04066620722 81 MG Orally Active 1 tablet Strength Once a day Claritin [facility] 15662285919 10 MG Orally Active 1 tablet Once a day Benzonatate [facility] 59066652175 200 MG Orally Oct 13October Active 1 capsule Three times a 2018 day Turmeric [facility] 49251143485 500 MG Orally Active not defined Potassium [facility] 00385908252 550 MG Orally Active 1 tablet Gluconate Once a day Zofran [facility] 15330581568 4 MG Orally Active not defined Results No Known Results Summary Purpose eClinicalWorks Submission
--- OUTSIDE RECORDS SUMMARY | 2019-02-01 15:20 | XMS REPORT ---
[...] Start End Status Dosage System Date Date [place] Thyroid [facility] 59748215388 60 MG Orally Active 1 tablet Once a day on an empty stomach (60 mg 15 mg) [place] Thyroid [facility] [address]-40 60 MG Orally Active 1 tablet Once a day on an empty stomach Potassium [facility] 77498890071 550 MG Orally Active 1 tablet Gluconate Once a day CoQ10 [facility] 19295311568 100 MG Orally Active 1 capsule Once a day with a meal Singulair [facility] 77230631567 10 MG Orally Active 1 tablet Once a day in the evening Vitamin D3 [facility] 00656518877 2000 UNIT Active 1 capsule Orally Once a day Loratadine [facility] 27275482438 5 MG/5ML Orally Active 10 ml Once a day Magnesium [facility] 02297358630 250 MG Orally Active 1 tablet Once a day with a meal Biotin Maximum [facility] 43883918170 5000 MCG Orally Active 1 capsule Strength Once a day Vitamin B12 [facility] 28123874423 1000 MCG Orally Active 1 tablet Once a day Turmeric [facility] 76823747346 500 MG Orally Active not defined Zofran ND 68842754789 4 MG Orally Active not defined Xanax [facility] 34467550517 0.25 MG Orally Active 1 tablet once a day PRN Ecotrin Low [facility] 05452765612 81 MG Orally Active 1 tablet Strength Once a day Claritin [facility] 61472208685 10 MG Orally Active 1 tablet Once a day Carvedilol [facility] 35545003357 12.5 MG Orally Active 1 tab BID Ramipril [facility] 94565257115 10 MG Orally Active 1 capsule BID Folic Acid [facility] 66614934176 400 MCG Orally Active 1 tablet Once a day Results No Known Results Summary Purpose eClinicalWorks Submission
--- OUTSIDE RECORDS SUMMARY | 2019-02-01 15:20 | XMS REPORT ---
[...] Start End Status Dosage System Date Date [place] Thyroid [facility] 83945494851 60 MG Orally Active 1 tablet Once a day on an empty stomach Carvedilol [facility] 19586510726 12.5 MG Orally Active 1 tab twice a day Results No Known Results Summary Purpose eClinicalWorks Submission
--- OUTSIDE RECORDS SUMMARY | 2019-02-01 15:20 | XMS REPORT ---
[...] Status Dosage System Date Date Potassium ND 94501291071 550 MG Orally Active 1 tablet Gluconate Once a day Turmeric ND 40473878492 500 MG Orally Active not defined Ramipril ND 37863681282 10 MG Orally BID Active 1 capsule [place] Thyroid ND 54243508415 60 MG Orally Active 1 tablet on Once a day an empty stomach Prolia ND 76493214545 60 MG/ML May 01, Active as directed Subcutaneous 2019 Carvedilol [facility] 26866834292 12.5 MG Orally Active 1 tab BID Vitamin B12 ND 04411252296 1000 MCG Orally Active 1 tablet Once a day Zofran [facility] 54591257279 4 MG Orally Active not defined Singulair [facility] 65831971574 10 MG Orally Active 1 tablet in Once a day the evening Magnesium [facility] 60638596469 250 MG Orally Active 1 tablet Once a day with a meal Vitamin D3 [facility] 43784484351 2000 UNIT Orally Active 1 capsule Once a day Folic Acid [facility] 51190252895 400 MCG Orally Active 1 tablet Once a day Ecotrin Low [facility] 54679209312 81 MG Orally Active 1 tablet Strength Once a day Claritin [facility] 95060799271 10 MG Orally Active 1 tablet Once a day [place] Thyroid [facility] 58812351511 60 MG Orally Active 1 tablet on Once a day an empty stomach Xanax [facility] 75852417353 0.25 MG Orally Active 1 tablet once a day PRN CoQ10 [facility] 86292752924 100 MG Orally Active 1 capsule Once a day with a meal Biotin Maximum [facility] 57055683400 5000 MCG Orally Active 1 capsule Strength Once a day Results No Known Results Summary Purpose eClinicalWorks Submission
--- OUTSIDE RECORDS SUMMARY | 2019-02-01 15:20 | XMS REPORT ---
[...] End Date Status Dosage System Date Magnesium [facility] 18919471541 250 MG Orally Active 1 tablet Once a day with a meal Turmeric [facility] 90730548867 500 MG Orally Active not defined Carvedilol [facility] 92272550571 12.5 MG Orally Active 1 tab BID Claritin [facility] 24233934370 10 MG Orally Active 1 tablet Once a day Ecotrin Low [facility] 33923911496 81 MG Orally Active 1 tablet Strength Once a day Ramipril ND 97059340754 10 MG Orally BID Active 1 capsule Vitamin B12 [facility] 92024058244 1000 MCG Orally Active 1 tablet Once a day [place]ance Thyroid [facility] 65695147715 60 MG Orally Active 1 tablet Once a day on an empty stomach (60 mg 15 mg) Tessalon [facility] 59878518720 100 MG Orally October Active 1 capsule [place] Three times a 2018 as needed day Zofran [facility] 69052574466 4 MG Orally Active not defined Singulair [facility] 54683880512 10 MG Orally Active 1 tablet Once a day in the evening Folic Acid [facility] 94938092692 400 MCG Orally Active 1 tablet Once a day CoQ10 [facility] 91907031569 100 MG Orally Active 1 capsule Once a day with a meal Biotin Maximum [facility] 65512179596 5000 MCG Orally Active 1 capsule Strength Once a day Vance Thyroid [facility] 60179213540 60 MG Orally Active 1 tablet Once a day on an empty stomach Vitamin D3 [facility] 78805162865 2000 UNIT Orally Active 1 capsule Once a day Potassium [facility] 39626660817 550 MG Orally Active 1 tablet Gluconate Once a day Xanax [facility] 87514853964 0.25 MG Orally Active 1 tablet once a day PRN Results No Known Results Summary Purpose eClinicalWorks Submission
--- OUTSIDE RECORDS SUMMARY | 2019-02-01 15:20 | XMS REPORT ---
[...] Start End Date Status Dosage Date Ramipril [facility] 87290507407 10 MG Orally BID Active 1 capsule Results No Known Results Summary Purpose [employer] Submission
--- OUTSIDE RECORDS SUMMARY | 2019-02-01 15:20 | XMS REPORT ---
[...] Start End Date Status [facility]osage [facility] MG Orally October Active 1 capsule [place] Three times a 2018 as needed day Results No Known Results Summary Purpose eClinicalWorks Submission
--- OUTSIDE RECORDS SUMMARY | 2019-02-01 15:21 | XMS REPORT | Continuity of Care Document ---
:1950 Author Organization [facility] Address [address] [place] [address] Phone Unavailable Care Team Providers Name Role Phone CATIE WALKER DO Primary Care Physician Insurance Providers Guarantor Iesha Muse Address [address] [place] [address] Email NO Payer Medicare Policy Number [id number] Subscriber's Name Iesha Muse Relationship Self / Same As Patient Group Number NA Group Name NA Payer O Policy Number [id number] Subscriber's Name Iesha Muse Relationship Self / Same As Patient Group Number PLN G Group Name NA Advance Directives Directive Response Recorded Date/Time Patient/Family Given Education Material R/T Y - PB 01/20/19 01/20/19 10: 23am Directives? Problems No problem information available. Medications No medication information available. Social History No social history information available. Hospital Discharge Instructions No hospital discharge instruction information available. Plan of Care Prescriptions See Medication Section Functional Status No functional status information available. Allergies, Adverse Reactions, Alerts No allergy information available. Immunizations No immunization information available. Vital Signs Acute Vital Signs Vital Response Date/Time Blood Pressure 148/74 mm Hg 01/20/2019 12:25pm Pulse Pulse Rate (adult) 61 beats per minute (60 - 100) 01/20/2019 12:25pm Respiratory Rate 18 breaths per minute (10 - 24) 01/20/2019 12:25pm Temperature Source Temporal Artery Scan 01/20/2019 12:25pm Results Laboratory Results Test Name Result Units Flags Reference Collection Result Comments Date/Time Date/Time Blood Urea 13 mg/dL 8-23 01/20/2019 01/20/2019 Nitrogen 10:42am 11:06am Creatinine 1.1 mg/dL H 0.50-0.90 01/20/2019 01/20/2019 10:42am 11:06am Glomerular 49.69 L 01/20/2019 01/20/2019 GFR RESULTS ARE REPORTED IN mL/min/1.73m2. Filtration Rate 10:42am 11:06am Calc Normal GFR: >60mL/min Moderately decreased GFR: 30-59 mL/min Severely decreased GFR: 15-29 mL/min Kidney Failure (or Dialysis): <15 mL/min The calculated eGFR is not valid for patients younger than 18 years or older than 75 years. Calcium Level 9.4 mg/dL 8.8-10.2 01/20/2019 01/20/2019 10:42am 11:06am Procedures No procedure information available. Encounters Encounter Location Arrival/Admit Date Discharge/Depart Date Attending Provider Discharged Rizwana 01/20/19 10:25am 01/22/19 11:59pm CATIE WALKER Counts Include [facility]
[2019-02-01 16:14] LABS: Absolute Lymphocytes (CBC) 1.2 K/uL (0.7-4.9); Absolute Monocytes 0.7 K/uL (0.1-1.3); Absolute Neutrophil 8.4 K/uL (1.8-8.0); Basophils % 0.8 % (0-1.3); Hematocrit 42.7 % (36.0-45.0); Lymphocytes % 11.7 % (15.3-44.8); MPV 8.1 fL (7.6-11.3); Monocytes % 6.3 % (3.3-12.3); Protime INR 1.01; RBC Red Blood Cell Count 4.85 M/uL (3.86-4.86)
[2019-02-01 16:35] LABS: ALT/SGPT 19 U/L (12-78); AST/SGOT 18 U/L (15-37); Albumin 3.8 g/dL (3.4-5.0); Alkaline Phosphatase 73 U/L (45-117); BUN Blood Urea Nitrogen 15 mg/dL (7-18); Bicarbonate 23 mmol/L (21-32); Bilirubin Direct 0.2 mg/dL (0-0.2); Bilirubin Total 0.7 mg/dL (0.2-1.0); Creatine Phosphokinase 36 U/L (26-192); Glucose Level 101 mg/dL (74-106); Magnesium 2.5 mg/dL (1.8-2.4); NT PRO-BNP 119 pg/mL (<125); Potassium 3.5 mmol/L (3.5-5.1); Protein, Total 7.7 g/dL (6.4-8.2); Sodium Level 137 mmol/L (136-145); Troponin (Emerg Dept Use Only) < 0.02 ng/mL (0.0-0.045)
--- NOTE | 2019-02-01 16:48 | RAD REPORT ---
EXAM DESCRIPTION: Stephanie Single View02/01/2019 4:08 pm CLINICAL HISTORY: Chest pain COMPARISON: none FINDINGS: The lungs appear clear of acute infiltrate. The heart is normal size IMPRESSION: No acute abnormalities displayed
--- NOTE | 2019-02-01 16:50 | RAD REPORT ---
EXAM DESCRIPTION: CT - Head Brain Wo Cont - 02/01/2019 4:40 pm CLINICAL HISTORY: Headache COMPARISON: None TECHNIQUE: Computed axial tomography of the head was obtained. IV contrast was not requested. All CT scans are performed using dose optimization technique as appropriate and may include automated exposure control or mA/KV adjustment according to patient size. FINDINGS: An intracranial bleed is not seen . The ventricles are normal in caliber. No extra-axial fluid collection is noted. Mild to moderate low-density areas within periventricular, deep and subcortical white matter likely represent ischemic changes secondary to small vessel disease . Fluid within the sinuses/ mastoids is not seen. IMPRESSION: No acute intracranial abnormality is seen. If patient's symptoms persist MRI of the bra in would be recommended.
[2019-02-01] MEDS ORDERED: NA CHLORIDE 0.9% 500 ML ONE ×2 (17:06→18:06)
[2019-02-01] MEDS ORDERED: ONDANSETRON 4 MG/2 ML VIAL ONE (17:06)
--- NOTE | 2019-02-01 17:18 | EKG ---
Test Date: 2019-02-01 Test Time: 15:52:52 Protective Signal Superintendent: NEVIN MEASUREMENT RESULTS: Intervals: Rate: 54 DC: 168 QRSD: 72 QT: 466 QTc: 441 Taft: P: 62 DC: 168 QRS: 34 T: 62 INTERPRETIVE STATEMENTS: Sinus bradycardia Cannot rule out Anterior infarct, age undetermined Abnormal ECG Compared to ECG 03/17/2007 08:34:32 Myocardial infarct finding now present Electronically Signed On 02-01-19 17:17:03 CDT by Pablo Engle
--- NOTE | 2019-02-01 18:01 | EDPHYS ---
Physician Documentation [facility] Name: Laisha Vasquez Age: 68 yrs Sex: Female : 1950 Arrival Date: 02/01/2019 Time: 15:17 Bed 28 Private MD: KRYSTLE Physician Ezio Littlejohn HPI: 02/01 15:50 This 68 yrs old Female presents to ER via Ambulatory with complaints of kb weakness, dull headache. 15:50 The patient presents with generalized weakness. Onset: The symptoms/episode kb began/occurred 5 day(s) ago. Context: occurred at home. Modifying factors: The symptoms are alleviated by nothing, the symptoms are aggravated by nothing. Associated signs and symptoms: Pertinent positives: headache, Pertinent negatives: abdominal pain, agitation, ataxia, blurred vision, chest pain, combativeness, confusion, diaphoresis, focal weakness, head injury, nausea, near-syncope, numbness, palpitations, , seizure, shortness of breath, syncope, tingling, vomiting. Severity of symptoms: At their worst the symptoms were moderate in the emergency department the symptoms are unchanged. Patient's baseline: Neuro: alert and fully oriented, Motor: no deficits, Ambulation: walks without assistance, Speech: normal. The patient has not experienced similar symptoms in the past. The patient has not recently seen a physician. Significant other reports pt has been weak and having a dull headache since . States it got worse today. Reports she had an injection for osteoporosis on before symptoms began. He is not sure what the shot was, but it is supposed to last 6 months. It was her first time to get it. Pt denies chest pain, shortness of breath, urinary symptoms, abd pain, n/v/d, fever. . Historical: - Allergies: 15:23 amlodipine; aj 15:23 Codeine; aj 15:23 Demerol; aj 15:23 METRONIDAZOLE; aj - Home Meds: 15:42 [place] Thyroid 60 mg Oral tab [Active]; carvedilol 12.5 mg Oral tab [Active]; rampilril ca1 10mg [Active]; Prevagen [Active]; Rivastiamine 9.5 MG PaTCH [Active]; - PMHx: 15:42 Hypertension; Hypothyroidism; ca1 - PSHx: 15:42 Colon Surgery; Hysterectomy; Cholecystectomy; ca1 - Immunization history:: Adult Immunizations up to date. - Social history:: Smoking status: Patient/guardian denies using tobacco. - Ebola Screening: : Patient negative for fever greater than or equal to 101.5 degrees Fahrenheit, and additional compatible Ebola Virus Disease symptoms Patient denies exposure to infectious person Patient denies travel to an Ebola-affected area in the 21 days before illness onset. ROS: 15:49 Constitutional: Negative for fever, chills, and weight loss, ENT: Negative for injury, kb pain, and discharge, Neck: Negative for injury, pain, and swelling, Cardiovascular: Negative for chest pain, palpitations, and edema, Respiratory: Negative for shortness of breath, cough, wheezing, and pleuritic chest pain, Abdomen/GI: Negative for abdominal pain, nausea, vomiting, diarrhea, and constipation, Back: Negative for injury and pain, : Negative for injury, bleeding, discharge, and swelling, MS/Extremity: Negative for injury and deformity, Skin: Negative for injury, rash, and discoloration. 15:49 Neuro: Positive for headache, weakness. Exam: 15:49 Constitutional: This is a well developed, well nourished patient who is awake, alert, kb and in no acute distress. Head/Face: Normocephalic, atraumatic. Eyes: Pupils equal round and reactive to light, extra-ocular motions intact. Lids and lashes normal. Conjunctiva and sclera are non-icteric and not injected. Cornea within normal limits. Periorbital areas with no swelling, redness, or edema. ENT: Nares patent. No nasal discharge, no septal abnormalities noted. Tympanic membranes are normal and external auditory canals are clear. Oropharynx with no redness, swelling, or masses, exudates, or evidence of obstruction, uvula midline. Mucous membranes moist. Neck: Trachea midline, no thyromegaly or masses palpated, and no cervical lymphadenopathy. Supple, full range of motion without nuchal rigidity, or vertebral point tenderness. No Meningismus. Chest/axilla: Normal chest wall appearance and motion. Nontender with no deformity. No lesions are appreciated. Cardiovascular: Regular rate and rhythm with a normal S1 and S2. No gallops, murmurs, or rubs. Normal PMI, no JVD. No pulse deficits. Respiratory: Lungs have equal breath sounds bilaterally, clear to auscultation and percussion. No rales, rhonchi or wheezes noted. No increased work of breathing, no retractions or nasal flaring. Abdomen/GI: Soft, non-tender, with normal bowel sounds. No distension or tympany. No guarding or rebound. No evidence of tenderness throughout. Skin: Warm, dry with normal turgor. Normal color with no rashes, no lesions, and no evidence of cellulitis. MS/ Extremity: Pulses equal, no cyanosis. Neurovascular intact. Full, normal range of motion. Neuro: Awake and alert, GCS 15, oriented to person, place, time, and situation. Cranial nerves II-XII grossly intact. Motor strength 5/5 in all extremities. Sensory grossly intact. Cerebellar exam normal. Normal gait. 15:54 ECG was reviewed by the Attending Physician. kb Vital Signs: 15:23 BP 118 / 59; Pulse 84; Resp 16; Temp 98.4; Pulse Ox 98% on R/A; Weight 74.84 kg; Height aj 5 ft. 2 in. (157.48 cm); 16:21 BP 137 / 69 Supine; Pulse 55; Resp 18; Temp 97.7(O); Pulse Ox 98% ; lt1 16:21 BP 139 / 73 Sitting; Pulse 59; lt1 16:21 BP 134 / 71 Standing; Pulse 61; lt1 16:33 BP 129 / 59; Pulse 52; Resp 17; Pulse Ox 95% on R/A; ca1 17:21 BP 147 / 72; Pulse 62; Resp 20; Pulse Ox 97% on R/A; ca1 17:42 BP 152 / 75; Pulse 61; Resp 21; Pulse Ox 98% on R/A; ca1 17:55 BP 162 / 79; Pulse 62; Resp 24; Temp 98(O); Pulse Ox 100% on R/A; ca1 18:52 BP 133 / 67; Pulse 64; Resp 19 S; Pulse Ox 99% on R/A; ca1 15:23 Body Mass Index 30.18 (74.84 kg, 157.48 cm) aj NIH Stroke Scale Scores: 15:49 NIHSS Score: 0 kb MDM: 15:31 Patient medically screened. kb 15:50 Data reviewed: vital signs, nurses notes. Data interpreted: Pulse oximetry: on room air kb is 98 %. Interpretation: normal. 17:59 Counseling: I had a detailed discussion with the patient and/or guardian regarding: the kb historical points, exam findings, and any diagnostic results supporting the discharge/admit diagnosis, lab results, radiology results, the need for outpatient follow up, a family practitioner, to return to the emergency department if symptoms worsen or persist or if there are any questions or concerns that arise at home. 02/01 15:41 Order name: Basic Metabolic Panel; Complete Time: 16:43 kb 02/01 15:41 Order name: CBC with Diff; Complete Time: 16:22 kb 02/01 15:41 Order name: LFT's; Complete Time: 16:43 kb 02/01 15:41 Order name: Magnesium; Complete Time: 16:43 kb 02/01 15:41 Order name: NT PRO-BNP; Complete Time: 16:43 kb 02/01 15:41 Order name: PT-INR; Complete Time: 16:32 kb 02/01 15:41 Order name: Troponin (emerg Dept Use Only); Complete Time: 16:43 kb 02/01 15:41 Order name: XRAY Chest (1 view); Complete Time: 16:53 kb 02/01 15:41 Order name: CPK; Complete Time: 16:43 kb 02/01 16:21 Order name: CT Head Brain wo Cont; Complete Time: 16:53 kb 02/01 17:56 Order name: Urine Dipstick--Ancillary (enter results) bd 02/01 15:41 Order name: EKG; Complete Time: 15:43 kb 02/01 15:41 Order name: Cardiac monitoring; Complete Time: 15:46 kb 02/01 15:41 Order name: EKG - Nurse/Tech; Complete Time: 16:03 kb 02/01 15:41 Order name: IV Saline Lock; Complete Time: 16:03 kb 02/01 15:41 Order name: Labs collected and sent; Complete Time: 15:46 kb 02/01 15:41 Order name: O2 Per Protocol; Complete Time: 15:46 kb 02/01 15:41 Order name: O2 Sat Monitoring; Complete Time: 15:46 kb 02/01 15:41 Order name: Urine Dipstick-Ancillary (obtain specimen); Complete Time: 17:41 kb 02/01 15:49 Order name: Orthostatics; Complete Time: 16:23 kb EC:54 Rate is 54 beats/min. Rhythm is regular, Sinus bradycardia. QRS [place] is Normal. [place] kb interval is normal at 168 msec. QRS interval is normal at 72 msec. QT interval is normal at 466 msec. Interpreted by me. Reviewed by me. Administered Medications: 16:40 Drug: NS 0.9% 500 ml Route: IV; Rate: bolus; Site: left antecubital; ca1 17:40 Follow up: Urine output 60 ml; Response: No adverse reaction; IV Status: Completed ca1 infusion 16:50 Drug: Zofran 4 mg Route: IVP; Site: left antecubital; ca1 17:40 Follow up: Response: No adverse reaction; Nausea is decreased ca1 18:00 Drug: NS 0.9% 500 ml Route: IV; Rate: bolus; Site: left antecubital; ca1 18:50 Follow up: Response: No adverse reaction; IV Status: Completed infusion ca1 18:00 Drug: Tylenol 1000 mg Route: PO; ca1 18:50 Follow up: Response: No adverse reaction; Pain is decreased ca1 Disposition: 02/01/19 18:00 Discharged to Home. Impression: Weakness, Volume depletion. - Condition is Stable. - Discharge Instructions: Weakness, [id number], Dehydration, Adult, Ozqz-je-Ngey. - Medication Reconciliation Form, Thank You Letter, Antibiotic Education, Prescription Opioid Use form. - Follow up: Emergency Department; When: As needed; Reason: Worsening of condition. Follow up: Private Physician; When: 2 - 3 days; Reason: Recheck today's complaints, Continuance of care, Re-evaluation by your physician. NIH Stroke Scale - NIH Stroke Score Date: 02/01/2019 Time: 15:49 Total Score = 0 1a. Level of Consciousness (LOC) - 0(Alert) 1b. Level of Consciousness (LOC) (Year \T\ Age) - 0(Both) 1c. LOC Commands (Open \T\ Closes Eyes/Lift Electrician) - 0(Both) 2. Best Gaze (Lateral Gaze Paresis) - 0(Normal) 3. Visual Field Loss - 0(No visual loss) 4. Facial Palsy - 0(Normal) 5a. Left Arm: Motor (10-second hold) - 0(No drift) 5b. Right Arm: Motor (10-second hold) - 0(No drift) 6a. Left Leg: Motor (5-second hold - always test supine) - 0(No drift) 6b. Right Leg: Motor (5-second hold - always test supine) - 0(No drift) 7. Limb Ataxia (finger/nose \T\ heel/hoff - test with eyes open) - 0(Absent) 8. Sensory Loss (pinprick arms/legs/face) - 0(Normal) 9. Best Language: Aphasia (description/naming/reading) - 0(No aphasia) 10. Dysarthria (speech clarity - read or repeat words) - 0(Normal) 11. Extinction and Inattention (visual/tactile/auditory/spatial/personal) - 0(No abnormality) Initials: kb Addendum: 02/08/2019 12:38 Co-signature as Attending Physician, Ezio Littlejohn MD I agree with the [facility] assessment and plan of care. Signatures: Dispatcher [employer] EDChula Lazcano, SOCIAL MEDIA CAMPAIGN MANAGER-C SOCIAL MEDIA CAMPAIGN MANAGER-Padmini Farfan RN RN Ezio Negrete MD MD [facility] [place], YAZMIN Bear RN ca1 Corrections: (The following items were deleted from the chart) 02/01 18:58 18:00 02/01/2019 18:00 Discharged to Home. Impression: Weakness; Volume ca1 depletion. Condition is Stable. Forms are Medication Reconciliation Form, Thank You Letter, Antibiotic Education, Prescription Opioid Use. Follow up: Emergency Department; When: As needed; Reason: Worsening of condition. Follow up: Private Physician; When: 2 - 3 days; Reason: Recheck today's complaints, Continuance of care, Re-evaluation by your physician. kb
--- NOTE | 2019-02-01 18:01 | ER ---
Nurse's Notes [facility] Name: Laisha Vasquez Age: 68 yrs Sex: Female : 1950 Arrival Date: 02/01/2019 Time: 15:17 Bed 28 Private MD: Diagnosis: Weakness;Volume depletion Presentation: 02/01 15:21 Presenting complaint: Patient states: Patient reports feeling run down and generally aj weak. Transition of care: patient was not received from another setting of care. Onset of symptoms was February 01, 2019. Risk Assessment: Do you want to hurt yourself or someone else? Patient reports no desire to harm self or others. Initial Sepsis Screen: Does the patient meet any 2 criteria? No. Patient's initial sepsis screen is negative. Does the patient have a suspected source of infection? No. Patient's initial sepsis screen is negative. Care prior to arrival: None. 15:21 Method Of Arrival: Ambulatory aj 15:21 Acuity: BEV 3 aj Triage Assessment: 15:23 General: Appears in no apparent distress. comfortable, Behavior is calm, cooperative, aj appropriate for age. Pain: Denies pain. Neuro: Level of Consciousness is awake, alert, obeys commands, Oriented to person, place, time, situation, Appropriate for age. Respiratory: Airway is patent Respiratory effort is even, unlabored, Respiratory pattern is regular, symmetrical. GI: Reports nausea. Derm: Skin is pink, warm \T\ dry. normal. Historical: - Allergies: 15:23 amlodipine; aj 15:23 Codeine; aj 15:23 Demerol; aj 15:23 METRONIDAZOLE; aj - Home Meds: 15:42 [place] Thyroid 60 mg Oral tab [Active]; carvedilol 12.5 mg Oral tab [Active]; rampilril ca1 10mg [Active]; Prevagen [Active]; Rivastiamine 9.5 MG PaTCH [Active]; - PMHx: 15:42 Hypertension; Hypothyroidism; ca1 - PSHx: 15:42 Colon Surgery; Hysterectomy; Cholecystectomy; ca1 - Immunization history:: Adult Immunizations up to date. - Social history:: Smoking status: Patient/guardian denies using tobacco. - Ebola Screening: : Patient negative for fever greater than or equal to 101.5 degrees Fahrenheit, and additional compatible Ebola Virus Disease symptoms Patient denies exposure to infectious person Patient denies travel to an Ebola-affected area in the 21 days before illness onset. Screenin:42 Abuse screen: Denies threats or abuse. Denies injuries from another. Nutritional ca1 screening:. Tuberculosis screening: No symptoms or risk factors identified. Fall Risk None identified. Assessment: 15:35 General: Appears in no apparent distress. ill, Behavior is calm, cooperative, ca1 appropriate for age, Reports feeling ill for for a week now. General:. Pain: Complains of pain in face and scalp Pain does not radiate. Pain currently is 5 out of 10 on a pain scale. Quality of pain is described as throbbing, Pain began 1 day ago. Also complains of nausea, photophobia. Neuro: Level of Consciousness is awake, alert, obeys commands, Oriented to person, place, time, situation, Rehabilitator are equal bilaterally Moves all extremities. Speech is normal, Facial symmetry appears normal. Neuro: Reports dizziness. Cardiovascular: Heart tones S1 S2 present Capillary refill < 3 seconds Patient's skin is warm and dry. Rhythm is sinus bradycardia. Respiratory: Airway is patent Respiratory effort is even, unlabored, Respiratory pattern is regular, symmetrical. GI: Abdomen is round non-distended, Bowel sounds present X 4 quads. Abd is soft and non tender X 4 quads. Reports nausea. : No deficits noted. No signs and/or symptoms were reported regarding the genitourinary system. EENT: No deficits noted. No signs and/or symptoms were reported regarding the EENT system. Derm: Skin is intact, is healthy with good turgor, Skin is pink, warm \T\ dry. Musculoskeletal: Circulation, motion, and sensation intact. Capillary refill < 3 seconds, Range of motion: intact in all extremities. 16:33 Reassessment: Patient appears in no apparent distress at this time. Patient and/or ca1 family updated on plan of care and expected duration. Pain level reassessed. Patient is alert, oriented x 3, equal unlabored respirations, skin warm/dry/pink. 17:42 Reassessment: Patient appears in no apparent distress at this time. Patient is ca1 alert/active/playful, equal unlabored respirations, skin warm/dry/pink. Pt wheeled to restroom. No C/O N\T\V as of this time. 18:07 Reassessment: Patient appears in no apparent distress at this time. Patient is alert, ca1 oriented x 3, equal unlabored respirations, skin warm/dry/pink. IVF still ongoing. 18:52 Reassessment: Patient appears in no apparent distress at this time. Patient is alert, ca1 oriented x 3, equal unlabored respirations, skin warm/dry/pink. Vital Signs: 15:23 BP 118 / 59; Pulse 84; Resp 16; Temp 98.4; Pulse Ox 98% on R/A; Weight 74.84 kg; Height aj 5 ft. 2 in. (157.48 cm); 16:21 BP 137 / 69 Supine; Pulse 55; Resp 18; Temp 97.7(O); Pulse Ox 98% ; lt1 16:21 BP 139 / 73 Sitting; Pulse 59; lt1 16:21 BP 134 / 71 Standing; Pulse 61; lt1 16:33 BP 129 / 59; Pulse 52; Resp 17; Pulse Ox 95% on R/A; ca1 17:21 BP 147 / 72; Pulse 62; Resp 20; Pulse Ox 97% on R/A; ca1 17:42 BP 152 / 75; Pulse 61; Resp 21; Pulse Ox 98% on R/A; ca1 17:55 BP 162 / 79; Pulse 62; Resp 24; Temp 98(O); Pulse Ox 100% on R/A; ca1 18:52 BP 133 / 67; Pulse 64; Resp 19 S; Pulse Ox 99% on R/A; ca1 15:23 Body Mass Index 30.18 (74.84 kg, 157.48 cm) aj NIH Stroke Scale Scores: 15:49 NIHSS Score: 0 kb ED Course: 15:17 Patient arrived in ED. tw3 15:23 Triage completed. aj 15:23 Arm band placed on right wrist. Patient placed in an exam room. aj 15:29 Marianela Rodriguez, YAZMIN is Primary Nurse. ca1 15:30 [place] FNP-C is PHCP. kb 15:30 Ezio Littlejohn MD is Attending Physician. kb 15:42 Patient has correct armband on for positive identification. Placed in gown. Bed in low ca1 position. Call light in reach. Side rails up X 1. postbed stitcher on. Pulse ox on. NIBP on. Warm blanket given. 15:42 No provider procedures requiring assistance completed. ca1 16:00 Initial lab(s) drawn, by me, sent to lab. Inserted saline lock: 20 gauge in left lt1 antecubital area, using aseptic technique. 16:06 XRAY Chest (1 view) In Process Unspecified. EDMS 16:[address] vm2 16:43 CT Head Brain wo Cont In Process Unspecified. EDMS 18:53 IV discontinued, intact, bleeding controlled, No redness/swelling at site. Pressure ca1 dressing applied. Administered Medications: 16:40 Drug: NS 0.9% 500 ml Route: IV; Rate: bolus; Site: left antecubital; ca1 17:40 Follow up: Urine output 60 ml; Response: No adverse reaction; IV Status: Completed ca1 infusion 16:50 Drug: Zofran 4 mg Route: IVP; Site: left antecubital; ca1 17:40 Follow up: Response: No adverse reaction; Nausea is decreased ca1 18:00 Drug: NS 0.9% 500 ml Route: IV; Rate: bolus; Site: left antecubital; ca1 18:50 Follow up: Response: No adverse reaction; IV Status: Completed infusion ca1 18:00 Drug: Tylenol 1000 mg Route: PO; ca1 18:50 Follow up: Response: No adverse reaction; Pain is decreased ca1 Output: 17:40 Urine: 60ml; Total: 60ml. ca1 Outcome: 18:00 Discharge ordered by . kb 18:53 Discharged to home via wheelchair. ca1 18:53 Condition: stable 18:53 Discharge instructions given to patient, family, Instructed on discharge instructions, follow up and referral plans. Demonstrated understanding of instructions, follow-up care. 18:58 Patient left the ED. ca1 NIH Stroke Scale - NIH Stroke Score Date: 02/01/2019 Time: 15:49 Total Score = 0 1a. Level of Consciousness (LOC) - 0(Alert) 1b. Level of Consciousness (LOC) (Year \T\ Age) - 0(Both) 1c. LOC Commands (Open \T\ Closes Eyes/Yarn Packer) - 0(Both) 2. Best Gaze (Lateral Gaze Paresis) - 0(Normal) 3. Visual Field Loss - 0(No visual loss) 4. Facial Palsy - 0(Normal) 5a. Left Arm: Motor (10-second hold) - 0(No drift) 5b. Right Arm: Motor (10-second hold) - 0(No drift) 6a. Left Leg: Motor (5-second hold - always test supine) - 0(No drift) 6b. Right Leg: Motor (5-second hold - always test supine) - 0(No drift) 7. Limb Ataxia (finger/nose \T\ heel/hoff - test with eyes open) - 0(Absent) 8. Sensory Loss (pinprick arms/legs/face) - 0(Normal) 9. Best Language: Aphasia (description/naming/reading) - 0(No aphasia) 10. Dysarthria (speech clarity - read or repeat words) - 0(Normal) 11. Extinction and Inattention (visual/tactile/auditory/spatial/personal) - 0(No abnormality) Initials: kb Signatures: Dispatcher [employer] EDChula Lazcano, LOADING MANAGER-C LOADING MANAGER-CkPadmini Bravo RN RN Sharmila Ricci tw3 Emily Perkins 2 Marianela Rodriguez RN RN ca1 Leeann Fay lt1 Corrections: (The following items were deleted from the chart) 18:08 16:33 Reassessment: Patient appears in no apparent distress at this time. ca1 Patient and/or family updated on plan of care and expected duration. Pain level reassessed. Patient is alert/active/playful, equal unlabored respirations, skin warm/dry/pink. ca1
[2019-02-01] MEDS ORDERED: ACETAMINOPHEN 500 MG TAB ONE (18:06)
[2019-02-01 18:18] LABS: Urine Blood NEGATIVE (NEG); Urine Glucose NEGATIVE (NEG); Urine Protein 2+ (NEG); Urine Specific Gravity >1.030 (1.005-1.030); Urine pH 5.5 (5.0-7.0)
== END 2019-02-01 18:58 | disposition home or self-care (01) ==
LOC: ER 15:15
DX: E86.9 Volume depletion, unspecified (principal); I10 Essential (primary) hypertension; E03.9 Hypothyroidism, unspecified; Z88.6 Allergy status to analgesic agent
CPT/HCPCS: 96361; 93005; 85025; 80048; 36415; 83735; 82550; 85610; 80076; 81003; 84484; 83880; 70450; 71045; 96374; 99285; J2405

== ENCOUNTER 2019-07-14 06:21 | Day surgery (SDC) | payer OTHER ==
--- OUTSIDE RECORDS SUMMARY | 2019-07-14 06:39 | XMS REPORT ---
:1950 [facility] Address [address] [place] [address] Dr. Parker [address] [place] [id number] Care Team Providers Name Role Phone Unavailable Unavailable Unavailable Problems This patient has no known problems. Allergies, Adverse Reactions, Alerts This patient has no known allergies or adverse reactions. Medications This patient has no known medications.
--- OUTSIDE RECORDS SUMMARY | 2019-07-14 06:40 | XMS REPORT ---
:1950 Author Organization [employer] Care Team Providers Name Role Phone Chintan Jose Provider Role Unavailable Allergies, Adverse Reactions, Alerts Substance Reaction Event Type Flagyl Info Not Available Drug Allergy Demerol Info Not Available Drug Allergy Amlodipine Besylate Info Not Available Drug Allergy Problems Problem Type Condition Code Onset Dates Condition Status Problem Abnormal mammogram R92.8 Active Problem Benign essential HTN I10 Active Problem Osteoporosis M81.0 Active Problem Allergic rhinitis, unspecified J30.9 Active seasonality, unspecified trigger Assessment Anxiety disorder F41.9 Active Problem Vascular dementia without behavioral F01.50 Active disturbance Assessment Memory loss R41.3 Active Assessment Adult BMI 29.0-29.9 kg/sq m Z68.29 Active Problem CKD (chronic kidney disease) stage N18.3 Active 3, GFR 30-59 ml/min Problem Family history of breast cancer Z80.3 Active Problem Hypothyroidism E03.9 Active Problem Memory loss R41.3 Active Problem Anxiety disorder F41.9 Active Assessment Benign essential HTN I10 Active Assessment Vascular dementia without behavioral F01.50 Active disturbance Assessment CKD (chronic kidney disease) stage N18.3 Active 3, GFR 30-59 ml/min Assessment Chronic sinusitis, unspecified J32.9 Active location Assessment Hypothyroidism E03.9 Active Assessment History of fall within past 90 days Z91.81 Active Assessment Osteoporosis M81.0 Active Problem Diverticulosis large intestine w/o K57.30 Active perforation or abscess w/o bleeding Assessment Allergic rhinitis, unspecified J30.9 Active seasonality, unspecified trigger Assessment Lower respiratory infection J22 Active Problem Biliary dyskinesia K82.8 Active Medications Medication Code Code Instructions Start End Status Dosage System Date Date Benzonatate ND 62852656434 200 MG Orally Jul 02, Jul 12, Active 1 capsule Three times a 2018 2018 day CoQ10 ND 40751080528 100 MG Orally Active 1 capsule Once a day with a meal [place] Thyroid ND 01762274506 60 MG Active TAKE ONE TABLET BY MOUTH ONCE A DAY ON A EMPTY STOMACH Madonnaic [facility] 23907634620 500 MG Orally Active not defined Folic Acid [facility] 93311633355 400 MCG Orally Active 1 tablet Once a day Magnesium [facility] 61803828604 250 MG Orally Active 1 tablet Once a day with a meal Clonidine HCl ND 22821046695 0.1 MG Orally January 27, Active 1 tablet Once a day PRN 2019 BP Systolic >180 Ventolin HFA [facility] 43229179644 108 (90 Base) Jun 23, Active 2 puffs as MCG/ACT 2019 needed for Inhalation cough every 6 hrs Ecotrin Low [facility] 67900192106 81 MG Orally Active 1 tablet Strength Once a day Potassium [facility] 73361677434 550 MG Orally Active 1 tablet Gluconate Once a day Alendronate [facility] 45976057176 70 MG Orally Active 1 tablet Sodium one a week Xanax [facility] 94733422315 0.25 MG Orally Active 1 tablet once a day PRN Prevagen [facility] 34094849900 10 MG Orally Active as directed Memantine HCl [facility] 25427025408 5 MG Orally Active 1 tablet Once a day Ramipril [facility] 25865847698 10 MG Orally Active 1 capsule BID [place] Thyroid [facility] 44875678968 60 MG Orally Active 1 tablet Once a day on an empty stomach Vitamin B12 [facility] 51303942042 1000 MCG Orally Active 1 tablet Once a day Vitamin D3 [facility] 01331217587 2000 UNIT Active 1 capsule Orally Once a day Carvedilol [facility] [address]-73 12.5 MG Orally Active 1 tablet Twice a day Stool Softener [facility] [address]-53 250 MG Orally Active 1 capsule Twice daily as needed Carvedilol [facility] 70003433790 12.5 MG Orally Active 1 tab BID Azithromycin ND 25164262592 250 MG Orally Jul 02, Jul 07, Active 2 tablets Once a day 2018 2018 on the first day, then 1 tablet daily for 4 days Claritin [facility] 39773763579 10 MG Orally Active 1 tablet Once a day Ramipril [facility] [address]-39 10 MG Orally Active TAKE 1 Twice a day CAPSULE BY MOUTH TWICE DAILY Results No Known Results Summary Purpose [employer]Works Submission
--- OUTSIDE RECORDS SUMMARY | 2019-07-14 06:40 | XMS REPORT ---
[...] unspecified J30.9 Active seasonality, unspecified trigger Problem Vascular dementia without behavioral F01.50 Active disturbance Problem CKD (chronic kidney disease) stage N18.3 Active 3, GFR 30-59 ml/min Problem Family history of breast cancer Z80.3 Active Problem Hypothyroidism E03.9 Active Problem Memory loss R41.3 Active Problem Anxiety disorder F41.9 Active Assessment Allergic rhinitis, unspecified J30.9 Active seasonality, unspecified trigger Problem Diverticulosis large intestine w/o K57.30 Active perforation or abscess w/o bleeding Assessment Cough R05 Active Problem Biliary dyskinesia K82.8 Active Medications Medication Code Code Instructions Start End Status Dosage System Date Date Ecotrin Low [facility] 81633922495 81 MG Orally Active 1 tablet Strength Once a day Carvedilol [facility] 89767832393 12.5 MG Active TAKE ONE TABLET BY MOUTH TWICE A DAY Potassium [facility] 60296497805 550 MG Orally Active 1 tablet Gluconate Once a day Turmeric ND 83567038401 500 MG Orally Active not defined Claritin [facility] 34720716169 10 MG Orally Active 1 tablet Once a day [place] Thyroid ND 63458854361 60 MG Orally Active 1 tablet Once a day on an empty stomach Magnesium ND 60405150148 250 MG Orally Active 1 tablet Once a day with a meal Alendronate ND 90799800136 70 MG Orally one Apr 01, December 26, Active 1 tablet Sodium a week 2018 2019 Clonidine HCl [facility] 65997979067 0.1 MG Orally January 27, Active 1 tablet Once a day PRN 2019 BP Systolic >180 Xanax ND 89868109795 0.25 MG Orally Active 1 tablet once a day PRN [place] Thyroid ND 54092662884 60 MG Active TAKE ONE TABLET BY MOUTH ONCE A DAY ON A EMPTY STOMACH Vitamin B12 ND 16232094862 1000 MCG Orally Active 1 tablet Once a day Vitamin D3 ND 78072634064 2000 UNIT Orally Active 1 capsule Once a day Ramipril ND 89242506945 10 MG Active TAKE 1 CAPSULE BY MOUTH TWICE DAILY Ventolin HFA [facility] 32124590774 108 (90 Base) Jun 23, Active 2 puffs as MCG/ACT 2019 needed for Inhalation every cough 6 hrs Folic Acid ND 91615221076 400 MCG Orally Active 1 tablet Once a day CoQ10 ND 47181921466 100 MG Orally Active 1 capsule Once a day with a meal Results No Known Results Summary Purpose [employer]Works Submission
[2019-07-14] MEDS ORDERED: Ringers Lactate 1,000 ML IV ONE (06:52)
[2019-07-14] MEDS ORDERED: propofoL 200 MG/20 ML VIAL IV ONE (07:13)
[2019-07-14] MEDS ORDERED: LIDOCAINE 1% MPF 5 ML VIAL ONE (07:13)
[2019-07-14 08:32] VITALS: BP 111/53; TEMP 97.2; O2SAT 100
--- NOTE | 2019-09-29 11:30 | ENDO RPT ---
[address], [address] COLONOSCOPY PROCEDURE REPORT EXAM DATE: 07/14/2019 PATIENT NAME: Laisha Vasquez MR #: [id number] BIRTHDATE: 1950 ATTENDING: Sadi Silva MD STATUS: outpatient [employer] OPERATOR: Georgina Cheng RN, Hailey Villarreal, and Milli Wayne RN INDICATIONS: The patient is a 69 yr old Female here for a colonoscopy due to diverticulitis and change in bowel habits PROCEDURE PERFORMED: Colonoscopy MEDICATIONS: Per Anesthesia. ESTIMATED BLOOD LOSS: None CONSENT: The patient understands the risks and benefits of the procedure and understands that these risks include, but are not limited to: sedation, allergic reaction, infection, perforation and/or bleeding. Alternative means of evaluation and treatment include, among others: physical exam, x-rays, and/or surgical intervention. The patient elects to proceed with this endoscopic procedure. DESCRIPTION OF PROCEDURE: During intra-op preparation period all mechanical medical equipment was checked for proper function. Hand hygiene and appropriate measures for infection prevention was taken. Procedure, possible complications, alternatives including, but not limited to possibility of bleeding, perforation, tear, infection, sepsis, need for surgery, need for blood transfusion, were explained to the patient. After the risks, benefits and alternatives of the procedure were thoroughly explained, Informed consent was verified, confirmed and timeout was successfully executed by the treatment team. The patient was placed in the left lateral position. A digital rectal exam was performed and revealed external hemorrhoids. After appropriate level of anesthesia, the scope was passed. The EC-[id number] ([id number]) and [id number] ([id number]) endoscope was introduced through the anus and advanced to the cecum, which was identified by transillumination from the light source, the appendix, and the ileocecal valve. The quality of the prep was good. The instrument was then slowly withdrawn as the colon was fully examined. Scope withdrawal time was . COLON FINDINGS: Diverticula was found throughout the entire examined colon. The opening was small. There was evidence of a prior surgical anastomosis with res Retroflexed views revealed no abnormalities. The scope was then completely withdrawn from the patient and the procedure terminated. ADVERSE EVENTS: There were no complications. IMPRESSIONS: 1. Diverticula throughout the entire examined colon 2. There was evidence of a prior surgical anastomosis 3. External hemorrhoids 4. Internal hemorrhoids RECOMMENDATIONS: 1. follow-up: office 1-2 week(s) 2. continue surveillance 3. no seeds in diet RECALL: Return in 5-10 year(s) for Colonoscopy. Sadi Silva MD eSigned: Sadi Silva MD 09/29/2019 11:29 AM cc: Sadi Silva M.D. CPT CODES: ICD9 CODES: PATIENT NAME: Laisha Vasquez MR#: [id number]
== END 2019-07-14 08:55 | disposition home or self-care (01) ==
LOC: OR 06:21
PROVIDERS: ATTEND Surgery
PROC: 0DJD8ZZ Inspection of Lower Intestinal Tract, Via Natural or Artificial Opening Endoscopic (ICD-10-PCS; principal; 2019-07-14 07:30)
DX: K57.90 Diverticulosis of intestine, part unspecified, without perforation or abscess without bleeding (principal); K64.8 Other hemorrhoids; K64.4 Residual hemorrhoidal skin tags; I10 Essential (primary) hypertension; E07.9 Disorder of thyroid, unspecified; Z88.6 Allergy status to analgesic agent; Z80.3 Family history of malignant neoplasm of breast; Z80.6 Family history of leukemia; Z82.49 Family history of ischemic heart disease and other diseases of the circulatory system
CPT/HCPCS: 45378; J2704; J7120

== ENCOUNTER 2022-01-20 02:33 | Emergency (ER) | payer OTHER ==
--- OUTSIDE RECORDS SUMMARY | 2022-01-20 02:38 | XMS REPORT | Continuity of Care Document ---
:1950 Author Organization [facility] t Address [address] [place] [address] Care Team Providers Name Role Phone America Woodson Primary Care Physician America Woodson Attending Clinician Unavailable Brody Norwood MD Attending Clinician BRODY NORWOOD Attending Clinician Unavailable BRODY NORWOOD Attending Clinician Unavailable Payers Payer Name Policy Type Policy Number Effective Date Expiration Date S ource Problems This patient has no known problems. Allergies, Adverse Reactions, Alerts Allergy Allergy Status Severity Reaction(s) Onset Inactive Treating Comm ents Source Name Type Date Date Clinician AMLODIPI DRUG Active Swelling 2014-08 Univer s NE INGREDI 09-10 ity of 00:00: [address] CODEINE DRUG Active N/V 2014-08 Univers INGREDI 09-10 ity of 00:00: [address] MEPERIDI DRUG Active N/V 2014-08 Univers NE (PF) 09-10 ity of 00:00: [address] METRONID DRUG Active Other-Cmnt 2014-08 Univ ers AZOLE INGREDI 1-17 ity of HCL 00:00: [place] 00 [facility] Branch Amlodipi Propensi Active Swelling 2014-08 Univ ers ne ty to 09-10 ity of adverse 00:00: [place] reaction 00 Medical s Branch Codeine Propensi Active Nausea 2014-08 Univers ty to and/or 09-10 ity of adverse Vomiting 00:00: [place] reaction 00 Medical s Branch Meperidi Propensi Active Nausea 2014-08 Univer s ne (Pf) ty to and/or 09-10 ity of adverse Vomiting 00:00: [place] reaction Medical s Branch Metronid Propensi Active Other - See 2014-08 headache Univers azole ty to comments 09-10 ity of Hcl adverse 00:00: [place] reaction 00 Medical s Branch Flagyl Adverse Active Info Not Common Reaction Available [facility] Demerol Adverse Active Info Not Common Reaction Available [facility] Amlodipi Adverse Active Info Not Commo n ne Reaction Available [facility] Social History Social Habit Start Date Stop Date Quantity Comments Source History SDOH University o f Alcohol Frequency [place] [facility] History SDOH University o f Alcohol Std [place] [facility] Drinks Branch History SDOH University o f Alcohol Binge [place] [facility] Exposure to Not sure [place] of SARS-CoV-2 [facility] (event) Branch Alcohol intake 2018-11-13 2018-11-13 Current drinker Unive rsity of 00:00:00 00:00:00 of alcohol [place] [facility] (finding) Branch Alcohol Comment 2018-11-13 2018-11-13 rare;y Universit y of 00:00:00 00:00:00 [facility] [place] [facility] Sex [birth year] Universit y of 00:00:00 00:00:00 [facility] Branch Smoking Status Start Date Stop Date Source Never smoker [facility] Branch Medications Ordered Filled Start Stop Current Ordering Indication Dosage Frequency Signature Comments Components Source Medication Medication Date Date Medication? Clinician (SIG) Name Name RIVASTIGMIN Yes [id number] APPLY ONE Univers E 9.5 mg/24 8-17 PATCH TO ity of hour patch 00:00: THE SKIN Christophe as 00 DAILY Medical Branch RIVASTIGMIN Yes [id number] APPLY ONE Univers E 9.5 mg/24 8-17 PATCH TO ity of hour patch 00:00: THE SKIN [place] as 00 DAILY Medical Branch RIVASTIGMIN 2020- Yes [id number] APPLY ONE Univers E 9.5 mg/24 8-17 PATCH TO ity of hour patch 00:00: THE SKIN [place] as 00 DAILY Medical Branch RIVASTIGMIN 2020-0 Yes [id number] APPLY ONE Univers E 9.5 mg/24 8-17 PATCH TO ity of hour patch 00:00: THE SKIN [place] as 00 DAILY Medical Branch rivastigmin 2019-0 Yes [id number] 1{patch Apply 1 Univers e 9.5 mg/24 9-04 } Patch to ity of hr patch 00:00: skin [place] 00 daily. Medical Branch rivastigmin Yes [id number] 1{patch Apply 1 Univers e 9.5 mg/24 9-04 } Patch to ity of hr patch 00:00: skin [place] 00 daily. Medical Branch rivastigmin 2020- No [id number] 1{patch Apply 1 Univers e 9.5 mg/24 9-04 08-17 } Patch to ity of hr patch 00:00: 00:00 skin [place] 00 :00 daily. Medical Branch rivastigmin Yes 1{patch Apply 1 Univers e 4.6 mg/24 6-24 } Patch to ity of hr patch 00:00: skin [place] 00 daily. Medical Branch rivastigmin Yes 1{patch Apply 1 Univers e 4.6 mg/24 6-24 } Patch to ity of hr patch 00:00: skin [place] 00 daily. Medical Branch rivastigmin 2019-0 Yes 1{patch Apply 1 Univers e 4.6 mg/24 6-24 } Patch to ity of hr patch 00:00: skin [place] 00 daily. Medical Branch rivastigmin 0 2020- No 1{patch Apply 1 Univers e 4.6 mg/24 6-24 09-04 } Patch to ity of hr patch 00:00: 00:00 skin [place] 00 :00 daily. Medical Branch rivastigmin 2019-0 2020- No 1{patch Apply 1 Univers e 4.6 mg/24 6-24 09-04 } Patch to ity of hr patch 00:00: 00:00 skin [place] 00 :00 daily. Medical Branch rivastigmin 2019-0 Yes 1{patch Apply 1 Univers e 4.6 mg/24 7-03 } Patch to ity of hr patch 00:00: skin [place] 00 daily. Medical Branch rivastigmin Yes 1{patch Apply 1 Univers e 4.6 mg/24 7-03 } Patch to ity of hr patch 00:00: skin [place] 00 daily. Medical Branch rivastigmin Yes 1{patch Apply 1 Univers e 4.6 mg/24 7-03 } Patch to ity of hr patch 00:00: skin [place] 00 daily. Medical Branch rivastigmin 2020- No 1{patch Apply 1 Univers e 4.6 mg/24 7-03 -04 } Patch to ity of hr patch 00:00: 00:00 skin [place] 00 :00 daily. Medical Branch rivastigmin 2020- No 1{patch Apply 1 Univers e 4.6 mg/24 7-10 31-04 } Patch to ity of hr patch 00:00: 00:00 skin [place] 00 :00 daily. Medical Branch aspirin Yes 81mg Take 81 mg Univ ers (ECOTRIN 3-22 by mouth ity of LOW 20:29: daily. [place] STRENGTH) Medical 81 mg EC Branch tablet coQ10, Yes Take by [facility] ubiquinol, 3-22 mouth. ity of 100 mg Cap 20:29: [place] [address] Medical Branch POTASSIUM Yes Take by [facility] [place] [facility] ers GLUCONATE 3-22 mouth. ity of ORAL 20:29: [place] [address] Medical Branch Cholecalcif Yes 1{capsu Take 1 U nivers andria, 11-13 le} capsule by ity of Vitamin D3, 20:29: mouth 2 Christophe as (VITAMIN 38 (two) Medical D3) 1,000 times Branch unit daily. capsule loratadine Yes 10mg Take 10 mg U nivers (CLARITIN 3-22 by mouth ity of REDITABS) 20:29: daily. [place] 10 mg Medical dissolvable Branch tablet ALPRAZolam Yes .25mg Take 0.25 U nivers 0.25 mg 3-22 mg by ity of tablet 20:29: mouth as [place] [address] needed Medical (daily). Branch COCONUT OIL Yes Take by Un fredi ORAL 3-22 mouth. ity of 20:29: [address] ramipril Yes 10mg Take 10 mg Uni vers (ALTACE) 10 3-22 by mouth ity of mg capsule 20:29: daily. [address] ramipril Yes 10mg Take 10 mg Uni vers (ALTACE) 10 3-22 by mouth ity of mg capsule 20:29: daily. [address] carvedilol Yes 12.5mg Take 12.5 Univers (COREG) 3-22 mg by ity of 12.5 mg 20:29: mouth 2 [place] tablet 38 (two) Medical times Branch daily with meals. carvedilol Yes 12.5mg Take 12.5 Univers (COREG) 3-22 mg by ity of 12.5 mg 20:29: mouth 2 [place] tablet 38 (two) Medical times [place] daily with meals. aspirin Yes 81mg Take 81 mg Univ ers (ECOTRIN 3-22 by mouth ity of LOW 20:29: daily. [place] [address] Medical 81 mg EC Branch tablet coQ10, Yes Take by Univers ubiquinol, 3-22 mouth. ity of 100 mg Cap 20:29: [address] POTASSIUM Yes Take by Univ ers GLUCONATE 3-22 mouth. ity of ORAL 20:29: [address] Cholecalcif Yes 1{capsu Take 1 U nivers andria, 3-22 le} capsule by ity of Vitamin D3, 20:29: mouth 2 [place] as (VITAMIN (two) Medical D3) 1,000 times Branch unit daily. capsule loratadine Yes 10mg Take 10 mg U nivers (CLARITIN 3-22 by mouth ity of REDITABS) 20:29: daily. [place] 10 mg Medical dissolvable Branch tablet ALPRAZolam Yes .25mg Take 0.25 U nivers 0.25 mg 3-22 mg by ity of tablet 20:29: mouth as [place] [address] needed Medical (daily). Branch COCONUT OIL Yes Take by Un fredi ORAL 3-22 mouth. ity of 20:29: [address] aspirin Yes 81mg Take 81 mg Univ ers (ECOTRIN 3-22 by mouth ity of LOW 20:29: daily. [place] STRENGTH) Medical 81 mg EC Branch tablet coQ10, Yes Take by Univers ubiquinol, 3-22 mouth. ity of 100 mg Cap 20:29: [address] POTASSIUM 0 Yes Take by Univ ers GLUCONATE 3-22 mouth. ity of ORAL 20:29: [address] Cholecalcif Yes 1{capsu Take 1 U nivers andria, 3-22 le} capsule by ity of Vitamin D3, 20:29: mouth 2 [place] as (VITAMIN 38 (two) Medical D3) 1,000 times Branch unit daily. capsule loratadine Yes 10mg Take 10 mg U nivers (CLARITIN 3-22 by mouth ity of REDITABS) 20:29: daily. [place] 10 mg Medical dissolvable Branch tablet ALPRAZolam Yes .25mg Take 0.25 U nivers 0.25 mg 3-22 mg by ity of tablet 20:29: mouth as [place] [address] needed Medical (daily). Branch COCONUT OIL Yes Take by Un freid ORAL 3-22 mouth. ity of 20:29: [address] ramipril Yes 10mg Take 10 mg Uni vers (ALTACE) 10 3-22 by mouth ity of mg capsule 20:29: daily. [address] carvedilol Yes 12.5mg Take 12.5 Univers (COREG) 3-22 mg by ity of 12.5 mg 20:29: mouth 2 [place] tablet 38 (two) Medical times [place] daily with meals. aspirin Yes 81mg Take 81 mg Univ ers (ECOTRIN 3-22 by mouth ity of LOW 20:29: daily. [place] [address] Medical 81 mg EC Branch tablet coQ10, Yes Take by Univers ubiquinol, 3-22 mouth. ity of 100 mg Cap 20:29: [address] POTASSIUM Yes Take by Univ ers GLUCONATE 3-22 mouth. ity of ORAL 20:29: [address] Cholecalcif Yes 1{capsu Take 1 U nivers andria, 3-22 le} capsule by ity of Vitamin D3, 20:29: mouth 2 [place] as (VITAMIN 38 (two) Medical D3) 1,000 times Branch unit daily. capsule loratadine Yes 10mg Take 10 mg U nivers (CLARITIN 3-22 by mouth ity of REDITABS) 20:29: daily. [place] 10 mg 38 Medical dissolvable Branch tablet ALPRAZolam Yes .25mg Take 0.25 U nivers 0.25 mg 3-22 mg by ity of tablet 20:29: mouth as [place] [address] needed Medical (daily). Branch COCONUT OIL Yes Take by Un fredi ORAL 3-22 mouth. ity of 20:29: [address] Branch ramipril Yes 10mg Take 10 mg Uni vers (ALTACE) 10 3-22 by mouth ity of mg capsule 20:29: daily. [address] Branch carvedilol Yes 12.5mg Take 12.5 Univers (COREG) 3-22 mg by ity of 12.5 mg 20:29: mouth 2 [place] tablet 38 (two) Medical times Branch daily with meals. aspirin Yes 81mg Take 81 mg Univ ers (ECOTRIN 3-22 by mouth ity of LOW 20:29: daily. [place] STRENGTH) Medical 81 mg EC Branch tablet coQ10, Yes Take by Univers ubiquinol, 3-22 mouth. ity of 100 mg Cap 20:29: [address] POTASSIUM Yes Take by Univ ers GLUCONATE 3-22 mouth. ity of ORAL 20:29: [address] Cholecalcif Yes 1{capsu Take 1 U nivers andria, 3-22 le} capsule by ity of Vitamin D3, 20:29: mouth 2 [place] as (VITAMIN 38 (two) Medical D3) 1,000 times Branch unit daily. capsule loratadine Yes 10mg Take 10 mg U nivers (CLARITIN 3-22 by mouth ity of REDITABS) 20:29: daily. [place] 10 mg Medical dissolvable Branch tablet ALPRAZolam Yes .25mg Take 0.25 U nivers 0.25 mg 3-22 mg by ity of tablet 20:29: mouth as [place] [address] needed Medical (daily). Branch COCONUT OIL 0 Yes Take by Un fredi ORAL 3-22 mouth. ity of 20:29: [address] Branch ramipril Yes 10mg Take 10 mg Uni vers (ALTACE) 10 3-22 by mouth ity of mg capsule 20:29: daily. [address] Branch carvedilol Yes 12.5mg Take 12.5 Univers (COREG) 3-22 mg by ity of 12.5 mg 20:29: mouth 2 [place] tablet 38 (two) Medical times Branch daily with meals. aspirin Yes 81mg Take 81 mg Univ ers (ECOTRIN 3-22 by mouth ity of LOW 20:29: daily. [place] [facility] Branch tablet coQ10, Yes Take by Univers ubiquinol, 3-22 mouth. ity of 100 mg Cap 20:29: [address] POTASSIUM Yes Take by Univ ers GLUCONATE 3-22 mouth. ity of ORAL 20:29: [address] Cholecalcif Yes 1{capsu Take 1 U nivers andria, 3-22 le} capsule by ity of Vitamin D3, 20:29: mouth 2 [place] as (VITAMIN (two) Medical D3) 1,000 times Branch unit daily. capsule loratadine Yes 10mg Take 10 mg U nivers (CLARITIN 3-22 by mouth ity of REDITABS) 20:29: daily. [place] 10 mg Medical dissolvable Branch tablet ALPRAZolam Yes .25mg Take 0.25 U nivers 0.25 mg 3-22 mg by ity of tablet 20:29: mouth as [place] [address] needed Medical (daily). Branch COCONUT OIL Yes Take by Un fredi ORAL 3-22 mouth. ity of 20:29: [address] Branch ramipril Yes 10mg Take 10 mg Uni vers (ALTACE) 10 3-22 by mouth ity of mg capsule 20:29: daily. [address] Branch carvedilol Yes 12.5mg Take 12.5 Univers (COREG) 3-22 mg by ity of 12.5 mg 20:29: mouth 2 [place] tablet 38 (two) Medical times Branch daily with meals. Thyroid, Yes 195mg Take 195 Univ ers [place]ork, 3-22 mg by ity of (ARMOUR 20:04: mouth. [place] THYROID) 40 Medical 180 mg Branch tablet Thyroid, 0 Yes 195mg Take 195 Univ ers [place], 3-22 mg by ity of (ARMOUR 20:04: mouth. [place] THYROID) 40 Medical 180 mg Branch tablet Thyroid, 0 Yes 195mg Take 195 Univ ers [place], 3-22 mg by ity of (ARMOUR 20:04: mouth. [place] THYROID) 40 Medical 180 mg Branch tablet Thyroid, 0 Yes 195mg Take 195 Univ ers [place], 3-22 mg by ity of (ARMOUR 20:04: mouth. [place] THYROID) 40 Medical 180 mg Branch tablet Thyroid, 0 Yes 195mg Take 195 Univ ers [place], 3-22 mg by ity of (ARMOUR 20:04: mouth. [place] THYROID) 40 Medical 180 mg Branch tablet Thyroid, 0 Yes 195mg Take 195 Univ ers [place], 3-22 mg by ity of (ARMOUR 20:04: mouth. [place] THYROID) 40 Medical 180 mg Branch tablet ramipril Yes 10mg Take 10 mg Uni vers (ALTACE) 10 3-22 by mouth ity of mg capsule 15:29: daily. [place] [address] Medical Branch carvedilol Yes 12.5mg Take 12.5 Univers (COREG) 3-22 mg by ity of 12.5 mg 15:29: mouth 2 [place] tablet 38 (two) Medical times Branch daily with meals. aspirin Yes 81mg Take 81 mg Univ ers (ECOTRIN 3-22 by mouth ity of LOW 15:29: daily. [place] STRENGTH) 38 Medical 81 mg EC Branch tablet coQ10, Yes Take by [facility] ubiquinol, 3-22 mouth. ity of 100 mg Cap 15:29: [place] [address] Medical Branch POTASSIUM 0 Yes Take by Univ ers GLUCONATE 3-22 mouth. ity of ORAL 15:29: [address] Branch Cholecalcif 2018-0 Yes 1{capsu Take 1 U nivers andria, 3-22 le} capsule by ity of Vitamin D3, 15:29: mouth 2 [place] as (VITAMIN 38 (two) Medical D3) 1,000 times Branch unit daily. capsule loratadine Yes 10mg Take 10 mg U nivers (CLARITIN 3-22 by mouth ity of REDITABS) 15:29: daily. [place] 10 mg 38 Medical dissolvable Branch tablet ALPRAZolam 2018-0 Yes .25mg Take 0.25 U nivers 0.25 mg 3-22 mg by ity of tablet 15:29: mouth as [place] [address] needed Medical (daily). Branch COCONUT OIL Yes Take by Un fredi ORAL 3-22 mouth. ity of 15:29: [address] Branch ramipril Yes 10mg Take 10 mg Uni vers (ALTACE) 10 3-22 by mouth ity of mg capsule 15:29: daily. [address] Branch carvedilol Yes 12.5mg Take 12.5 Univers (COREG) 3-22 mg by ity of 12.5 mg 15:29: mouth 2 [place] tablet 38 (two) Medical times Branch daily with meals. aspirin Yes 81mg Take 81 mg Univ ers (ECOTRIN 3-22 by mouth ity of LOW 15:29: daily. [place] STRENGTH) Medical 81 mg EC Branch tablet coQ10, Yes Take by Univers ubiquinol, 3-22 mouth. ity of 100 mg Cap 15:29: [address] POTASSIUM Yes Take by Univ ers GLUCONATE 3-22 mouth. ity of ORAL 15:29: [address] Cholecalcif Yes 1{capsu Take 1 U nivers andria, 3-22 le} capsule by ity of Vitamin D3, 15:29: mouth 2 [place] as (VITAMIN (two) Medical D3) 1,000 times Branch unit daily. capsule loratadine Yes 10mg Take 10 mg U nivers (CLARITIN 3-22 by mouth ity of REDITABS) 15:29: daily. [place] 10 mg Medical dissolvable Branch tablet ALPRAZolam Yes .25mg Take 0.25 U nivers 0.25 mg 3-22 mg by ity of tablet 15:29: mouth as [place] [address] needed Medical (daily). Branch COCONUT OIL 0 Yes Take by Un fredi ORAL 3-22 mouth. ity of 15:29: [address] ramipril Yes 10mg Take 10 mg Uni vers (ALTACE) 10 3-22 by mouth ity of mg capsule 15:29: daily. [address] carvedilol Yes 12.5mg Take 12.5 Univers (COREG) 3-22 mg by ity of 12.5 mg 15:29: mouth 2 [place] tablet 38 (two) Medical times Branch daily with meals. aspirin Yes 81mg Take 81 mg Univ ers (ECOTRIN 3-22 by mouth ity of LOW 15:29: daily. [place] STRENGTH) 38 Medical 81 mg EC Branch tablet coQ10, Yes Take by Univers ubiquinol, 3-22 mouth. ity of 100 mg Cap 15:29: [place] [address] Medical Branch POTASSIUM Yes Take by Univ ers GLUCONATE 3-22 mouth. ity of ORAL 15:29: [place] [address] Medical Branch Cholecalcif Yes 1{capsu Take 1 U nivers andria, 3-22 le} capsule by ity of Vitamin D3, 15:29: mouth 2 [place] as (VITAMIN (two) Medical D3) 1,000 times Branch unit daily. capsule loratadine Yes 10mg Take 10 mg U nivers (CLARITIN 3-22 by mouth ity of REDITABS) 15:29: daily. [place] 10 mg 38 Medical dissolvable Branch tablet ALPRAZolam Yes .25mg Take 0.25 U nivers 0.25 mg 3-22 mg by ity of tablet 15:29: mouth as [place] [address] needed Medical (daily). Branch COCONUT OIL Yes Take by Un fredi ORAL 3-22 mouth. ity of 15:29: [place] [address] Medical Branch Thyroid, Yes 195mg Take 195 Univ ers [place], 3-22 mg by ity of (ARMOUR 15:04: mouth. [place] THYROID) 40 Medical 180 mg Branch tablet Thyroid, Yes 195mg Take 195 Univ ers [place], 3-22 mg by ity of (ARMOUR 15:04: mouth. [place] THYROID) 40 Medical 180 mg Branch tablet Thyroid, Yes 195mg Take 195 Univ ers [place], 3-22 mg by ity of (ARMOUR 15:04: mouth. [place] THYROID) 40 Medical 180 mg Branch tablet ARMOUR Yes Univers THYROID 60 2-16 ity of mg tablet 00:00: [place] 00 Medical Branch ARMOUR Yes Univers THYROID 60 2-16 ity of mg tablet 00:00: [place] [facility] ARMOUR Yes Univers THYROID 60 2-16 ity of mg tablet 00:00: [place] 00 [facility] Yes Univers THYROID 60 2-16 ity of mg tablet 00:00: [facility] Yes Univers THYROID 60 2-16 ity of mg tablet 00:00: [facility] Yes Univers THYROID 60 2-16 ity of mg tablet 00:00: [facility] Yes Univers THYROID 60 2-16 ity of mg tablet 00:00: [place] [facility] Yes Univers THYROID 60 2-16 ity of mg tablet 00:00: [place] [facility] Yes Univers THYROID 60 2-16 ity of mg tablet 00:00: [place] [facility] dicyclomine 2014-08 Yes 20mg Take 1 Tab Univers (BENTYL) 20 1-18 by mouth 4 it y of mg tablet 00:00: (four) [place] 00 times Medical daily. Branch diphenoxyla 2014-08 Yes 1{tbl} Take 1 Tab Univers te-atropine 1-18 by mouth ity of (LOMOTIL) 00:00: every 6 [place] 2.5-0.025 00 (six) Medical mg per hours as Branch tablet needed for Other (Diarrhea) . ondansetron 2014-08 Yes 4mg Take 1 Tab Univers (ZOFRAN, 1-18 by mouth ity of HYDROCHLORI 00:00: every 8 [place] as [place],) 4 mg 00 (eight) Medical tablet hours as Branch needed for Nausea and Vomiting (N/V). dicyclomine 2014-08 Yes 20mg Take 1 Tab Univers (BENTYL) 20 1-18 by mouth 4 it y of mg tablet 00:00: (four) [place] 00 times Medical daily. Branch diphenoxyla 2014-08 Yes 1{tbl} Take 1 Tab Univers te-atropine 1-18 by mouth ity of (LOMOTIL) 00:00: every 6 [place] 2.5-0.025 00 (six) Medical mg per hours as Branch tablet needed for Other (Diarrhea) . ondansetron 2014-08 Yes 4mg Take 1 Tab Univers (ZOFRAN, 1-18 by mouth ity of HYDROCHLORI 00:00: every 8 [place],) 4 mg 00 (eight) Medical tablet hours as Branch needed for Nausea and Vomiting (N/V). dicyclomine 2014-08 Yes 20mg Take 1 Tab Univers (BENTYL) 20 1-18 by mouth 4 it y of mg tablet 00:00: (four) [place] 00 times Medical daily. Branch diphenoxyla 2014-08 Yes 1{tbl} Take 1 Tab Univers te-atropine 1-18 by mouth ity of (LOMOTIL) 00:00: every 6 [place] 2.5-0.025 00 (six) Medical mg per hours as Branch tablet needed for Other (Diarrhea) . ondansetron 2014-08 Yes 4mg Take 1 Tab Univers (ZOFRAN, 1-18 by mouth ity of HYDROCHLORI 00:00: every 8 [place],) 4 mg 00 (eight) Medical tablet hours as Branch needed for Nausea and Vomiting (N/V). dicyclomine 2014-08 Yes 20mg Take 1 Tab Univers (BENTYL) 20 1-18 by mouth 4 it y of mg tablet 00:00: (four) [place] 00 times Medical daily. Branch diphenoxyla 2014-08 Yes 1{tbl} Take 1 Tab Univers te-atropine 1-18 by mouth ity of (LOMOTIL) 00:00: every 6 [place] 2.5-0.025 00 (six) Medical mg per hours as Branch tablet needed for Other (Diarrhea) . ondansetron 2014-08 Yes 4mg Take 1 Tab Univers (ZOFRAN, 1-18 by mouth ity of HYDROCHLORI 00:00: every 8 [place],) 4 mg 00 (eight) Medical tablet hours as Branch needed for Nausea and Vomiting (N/V). dicyclomine 2014-08 Yes 20mg Take 1 Tab Univers (BENTYL) 20 1-18 by mouth 4 it y of mg tablet 00:00: (four) [place] 00 times Medical daily. Branch diphenoxyla 2014-08 Yes 1{tbl} Take 1 Tab Univers te-atropine 1-18 by mouth ity of (LOMOTIL) 00:00: every 6 [place] 2.5-0.025 00 (six) Medical mg per hours as Branch tablet needed for Other (Diarrhea) . ondansetron 2014-08 Yes 4mg Take 1 Tab Univers (ZOFRAN, 1-18 by mouth ity of HYDROCHLORI 00:00: every 8 [place],) 4 mg 00 (eight) Medical tablet hours as Branch needed for Nausea and Vomiting (N/V). dicyclomine 2014-08 Yes 20mg Take 1 Tab Univers (BENTYL) 20 1-18 by mouth 4 it y of mg tablet 00:00: (four) [place] 00 times Medical daily. Branch diphenoxyla 2014-08 Yes 1{tbl} Take 1 Tab Univers te-atropine 1-18 by mouth ity of (LOMOTIL) 00:00: every 6 [place] 2.5-0.025 00 (six) Medical mg per hours as Branch tablet needed for Other (Diarrhea) . ondansetron 2014-08 Yes 4mg Take 1 Tab Univers (ZOFRAN, 1-18 by mouth ity of HYDROCHLORI 00:00: every 8 [place],) 4 mg 00 (eight) Medical tablet hours as Branch needed for Nausea and Vomiting (N/V). dicyclomine 2014-08 Yes 20mg Take 1 Tab Univers (BENTYL) 20 1-18 by mouth 4 it y of mg tablet 00:00: (four) [place] 00 times Medical daily. Branch diphenoxyla 2014-08 Yes 1{tbl} Take 1 Tab Univers te-atropine 1-18 by mouth ity of (LOMOTIL) 00:00: every 6 [place] 2.5-0.025 00 (six) Medical mg per hours as Branch tablet needed for Other (Diarrhea) . ondansetron 2014-08 Yes 4mg Take 1 Tab Univers (ZOFRAN, 1-18 by mouth ity of HYDROCHLORI 00:00: every 8 [place],) 4 mg 00 (eight) Medical tablet hours as Branch needed for Nausea and Vomiting (N/V). dicyclomine 2014-08 Yes 20mg Take 1 Tab Univers (BENTYL) 20 1-18 by mouth 4 it y of mg tablet 00:00: (four) [place] 00 times Medical daily. Branch diphenoxyla 2014-08 Yes 1{tbl} Take 1 Tab Univers te-atropine 1-18 by mouth ity of (LOMOTIL) 00:00: every 6 [place] 2.5-0.025 00 (six) Medical mg per hours as Branch tablet needed for Other (Diarrhea) . ondansetron 2014-08 Yes 4mg Take 1 Tab Univers (ZOFRAN, 1-18 by mouth ity of HYDROCHLORI 00:00: every 8 [place] as [place],) 4 mg 00 (eight) Medical tablet hours as Branch needed for Nausea and Vomiting (N/V). dicyclomine 2014-08 Yes 20mg Take 1 Tab Univers (BENTYL) 20 1-18 by mouth 4 it y of mg tablet 00:00: (four) [place] 00 times Medical daily. Branch diphenoxyla 2014-08 Yes 1{tbl} Take 1 Tab Univers te-atropine 1-18 by mouth ity of (LOMOTIL) 00:00: every 6 [place] 2.5-0.025 00 (six) Medical mg per hours as Branch tablet needed for Other (Diarrhea) . ondansetron 2014-08 Yes 4mg Take 1 Tab Univers (ZOFRAN, 1-18 by mouth ity of HYDROCHLORI 00:00: every 8 [place],) 4 mg 00 (eight) Medical tablet hours as Branch needed for Nausea and Vomiting (N/V). Ramipril Ramipril Yes Jose 1 capsule Common [facility] Vital Signs Vital Name Observation Time Observation Value Comments Source Systolic blood 2020-04-28 21:00:00 103 mm[Hg] [facility] Diastolic blood 2020-04-28 21:00:00 68 mm[facility]Hg[facility] rate 2020-04-28 21:00:00 58 /min [facility] Body temperature 2020-04-28 21:00:00 36.83 Alize [facility] [place] [facility] [place] [facility] Body height 2020-04-28 21:00:00 157.5 cm [facility] Body weight 2020-04-28 21:00:00 76.567 kg [facility] BMI 2020-04-28 21:00:00 30.87 kg/m2 [facility] Oxygen saturation in 2020-04-28 21:00:00 96 /min [facility] Arterial blood by [facility] Pulse oximetry Branch Procedures This patient has no known procedures. Encounters Start End Encounter Admission Attending Care Care Encounter Source Date/Time Date/Time Type Type Clinicians Facility Department ID 2021-09-[address] [facility] [id number] Common 12:34:10 Jose [id number] [facility] 2021-09-19 Outpatient Woodson, STLMLC STLMLC [id number] Common 12:33:38 Jose [id number] [facility] 2021-09-19 Outpatient Woodson, STLMLC STLMLC [id number] Common 12:32:30 Jose [id number] [facility] 2021-09-19 Outpatient Woodson, STLMLC STLMLC [id number] Common 11:56:09 Jose [id number] [facility] 2021-09-19 Outpatient Woodson, STLMLC STLMLC [id number] Common 11:16:51 Jose [id number] [facility] 2021-09-19 Outpatient Woodson, STLMLC STLMLC [id number] Common 11:05:30 Jose [id number] [facility] 2021-09-19 Outpatient Woodson, STLMLC STLMLC [id number] Common 10:59:46 Jose [id number] [facility] 2021-09-19 Outpatient Woodson, STLMLC STLC [id number] Common 10:58:17 Jose [id number] [facility] 2021-10-03 2021-10-03 ambulatory STLMLC STLMLC [id number] Common 00:00:00 00:00:00 [facility] 2021-09-06 2021-09-06 ambulatory STLMLC STLMLC [id number] Common 00:00:00 00:00:00 [facility] 2021-09-03 2021-09-03 [facility] [id number] Univers 00:00:00 00:00:00 Momo MORALES [id number] ity [id number] [phone] [address] 2021-08-31 2021-08-31 [facility] [id number] Univers 00:00:00 00:00:00 Momo MORALES [id number] it[place] of [id number] [phone] Nh dic[address] 2021-08-19 2021-08-19 [facility] [id number] Univers 00:00:00 00:00:00 Momo MORALES [id number] ity [facility] [id number] [phone] Nh dic[address] 2021-05-24 2021-05-24 Outpatient STLMLC STLMLC [id number] Common 00:00:00 00:00:00 [facility] 2021-04-10 2021-04-10 [facility] [id number] Univers 00:00:00 00:00:00 Momo Sterling Colora [id number] [id number] [phone] [address] 2021-01-18 2021-01-18 Outpatient STLMLC STLMLC [id number] Common 00:00:00 00:00:00 [facility] 2021-01-18 2021-01-18 Outpatient STLMLC STLMLC [id number] Common 00:00:00 00:00:00 [facility] 2020-10-19 2020-10-19 Outpatient STLMLC STLMLC [id number] Common 00:00:00 00:00:00 [facility] 2020-10-18 2020-10-18 Outpatient STLMLC STLMLC [id number] Common 00:00:00 00:00:00 [facility] 2020-09-11 2020-09-11 Outpatient STLMLC STLMLC [id number] Common 00:00:00 00:00:00 [facility] 2020-07-11 2020-07-11 Outpatient STLMLC STLMLC [id number] Common 00:00:00 00:00:00 [facility] 2020-04-28 2020-04-28 [facility] [id number] Univers 15:42:50 16:02:50 Visit Momo Morales [id number] [id number] [phone] [address] 2020-04-28 2020-04-28 Outpatient M[facility]O [facility] [id number] Univers 15:40:00 15:40:00 MOMO NORWOOD [id number] [facility] 2020-04-28 2020-04-28 Outpatient M[facility]O [facility] [id number] Univers 15:40:00 15:40:00 ENMAMOMO Bernal [facility] 2020-04-22 2020-04-22 Refill Enma [facility] ..840.114 [id number] Univers 00:00:00 00:00:00 Momo Morales [id number] [id number] [phone] [address] 2020-04-21 2020-04-21 [facility] [id number] Common 14:37:00 14:37:00 t [employer] [facility] it Drive [facility] 2020-04-11 2020-04-11 Outpatient M[facility]O [facility] [id number] Univers 16:20:00 16:20:00 [facility]OD [id number] [facility] 2020-04-11 2020-04-11 Outpatient MOMO [facility] [id number] Univers 16:20:00 16:20:00 ENMAMOMO Bernal [facility] 2020-04-10 2020-04-10 [facility] [id number] Common 13:15:00 13:15:00 [employer] [facility] it Drive [facility] 2020-04-04 2020-04-04 Telephone Enma [facility] [id number] Univers 00:00:00 00:00:00 Momo Morales [id number] ity [facility] [id number] [phone] Nh dical nal 092 [facility] 2020-04-03 2020-04-03 [facility] [id number] Common 08:45:00 08:45:[address] [facility] 2020-02-16 2020-02-16 Marilin Norwood [facility] [id number] Univers 00:00:00 00:00:00 Momo Morales [id number] ity [facility] [id number] [phone] Nh dical nal 092 [facility] 2020-01-26 2020-01-26 [facility] [id number] Common 08:03:00 08:03:[address] [facility] 2020-01-25 2020-01-25 [facility] [id number] Common 10:00:00 10:00:[address] [facility] 2020-01-06 2020-01-06 [facility] [id number] Common 10:15:00 10:15:[address] [facility] 2019-12-31 2019-12-31 [facility] [id number] Common 10:00:00 10:00:[address] [facility] 2019-12-31 2019-12-31 [facility] [id number] Common 10:00:00 10:00:[address] [facility] 2019-12-21 2019-12-21 [facility] [id number] Common 10:15:00 10:15:[address] [facility] 2019-12-14 2019-12-14 [facility] [id number] Common 15:45:00 15:45:[address] Family [facility] 2019-10-28 2019-10-28 [facility] [id number] Common 10:32:00 10:32:[address] [facility] 2019-09-30 2019-09-30 [facility] [id number] Common 09:15:00 09:15:[address] [facility] 2019-09-03 2019-09-03 [facility] [id number] Common 15:19:00 15:19:[address] [facility] 2019-08-30 2019-08-30 [facility] [id number] Common 13:15:00 13:15:[address] [facility] 2019-07-20 2019-07-20 [facility] [id number] Common 08:45:00 08:45:[address] [facility] 2019-07-14 2019-07-14 [facility] [id number] Common 08:46:00 08:46:[address] [facility] 2019-07-02 2019-07-02 [facility] [id number] Common 09:00:00 09:00:[address] [facility] 2019-06-23 2019-06-23 [facility] [id number] Common 13:45:00 13:45:[address] [facility] 2019-04-27 2019-04-27 [facility] [id number] Common 10:43:00 10:43:[address] [facility] 2019-04-01 2019-04-01 [facility] [id number] Common 08:00:00 08:00:[address] [facility] 2019-02-05 2019-02-05 [facility] [id number] Common 10:30:00 10:30:[address] [facility] 2018-12-23 2018-12-23 [facility] [id number] Common 11:56:00 11:56:[address] [facility] 2018-12-23 2018-12-23 [facility] [id number] Common 08:45:00 08:45:[address] [facility] 2018-12-18 2018-12-18 [facility] [id number] Common 09:11:00 09:11:[address] [facility] 2018-12-10 2018-12-10 [facility] [id number] Common 11:41:00 11:41:[address] [facility] 2018-11-16 2018-11-16 [facility] [id number] Common 11:15:00 11:15:[address] [facility] 2018-11-06 2018-11-06 [facility] [id number] Common 09:45:00 09:45:[address] [facility] 2018-10-20 2018-10-20 [facility] [id number] Common 15:39:00 15:39:[address] [facility] 2018-10-13 2018-10-13 [facility] [id number] Common 14:30:00 14:30:[address] [facility] 2018-10-09 2018-10-09 [facility] [id number] Common 11:49:00 11:49:[address] [facility] 2018-10-05 2018-10-05 [facility] [id number] Common 09:24:00 09:24:[address] [facility] 2018-09-28 2018-09-28 [facility] [id number] Common 10:40:00 10:40:[address] [facility] 2018-09-25 2018-09-25 [facility] [id number] Common 08:30:00 08:30:[address] [facility] 2018-05-21 2018-05-21 [facility] [id number] Common 11:15:00 11:15:[address] [facility] 2018-05-13 2018-05-13 [facility] [id number] Common 09:37:00 09:37:[address] [facility] 2018-05-06 2018-05-06 [facility] [id number] Common 10:11:00 10:11:[address] [facility] 2018-03-11 2018-03-11 [facility] [id number] Common 09:45:00 09:45:[address] [facility] Results This patient has no known results.
[2022-01-20] MEDS ORDERED: NA CHLORIDE 0.9% 0 ML ONE (03:06)
[2022-01-20] MEDS ORDERED: ONDANSETRON 4 MG/2 ML VIAL ONE ×2 (03:06→03:07)
[2022-01-20] MEDS ORDERED: NA CHLORIDE 0.9% 2,000 ML ONE (03:08)
[2022-01-20 03:21] LABS: Absolute Lymphocytes (CBC) 0.7 K/uL (0.7-4.9); Hematocrit 43.8 % (36.0-45.0); Lymphocytes % 7.2 % (15.3-44.8); MPV 7.1 fL (7.6-11.3); RBC Red Blood Cell Count 5.02 M/uL (3.86-4.86)
[2022-01-20 03:39] LABS: Albumin 3.3 g/dL (3.4-5.0); Bilirubin Total 0.5 mg/dL (0.2-1.0); Potassium 4.6 mmol/L (3.5-5.1)
[2022-01-20 05:53] LABS: Urine Blood Negative (Negative); Urine Glucose Negative (Negative); Urine Protein Negative (Negative); Urine Specific Gravity >=1.030 (1.005-1.030)
--- NOTE | 2022-01-20 05:54 | ER ---
Nurse's Notes [facility] Name: Laisha Vasquez Age: 71 yrs Sex: Female : 1950 Arrival Date: 01/20/2022 Time: 02:36 Bed 2 Private MD: Diagnosis: Dehydration;Weakness Presentation: 01/20 03:09 Chief complaint: Patient's son or daughter states: pt has frequent episodes of lg3 dehydration and vomiting and pt has not has a bowel movement in about 3 days. Coronavirus screen: Client denies travel out of the [place] in the last 14 days. At this time, the client does not indicate any symptoms associated with coronavirus-19. Ebola Screen: No symptoms or risks identified at this time. Initial Sepsis Screen: Does the patient meet any 2 criteria? No. Patient's initial sepsis screen is negative. Does the patient have a suspected source of infection? No. Patient's initial sepsis screen is negative. Risk Assessment: Do you want to hurt yourself or someone else? Patient reports no desire to harm self or others. Onset of symptoms is unknown. 03:09 Method Of Arrival: Wheelchair lg3 03:09 Acuity: BEV 3 lg3 Triage Assessment: 03:11 General: Appears in no apparent distress. comfortable, Behavior is calm, cooperative. lg3 Pain: Denies pain. EENT: No deficits noted. No signs and/or symptoms were reported regarding the EENT system. Neuro: Johnson Agitation-Sedation Scale (RASS): -1 Drowsy Level of Consciousness is awake, obeys commands, confused, Oriented to person. Cardiovascular: No deficits noted. Capillary refill < 3 seconds Clubbing of nail beds is absent JVD is absent Patient's skin is warm and dry. Parent/caregiver reports patient has had vomiting, high blood pressure. Respiratory: No deficits noted. Airway is patent Trachea midline Respiratory effort is even, unlabored, Respiratory pattern is regular, symmetrical. GI: Reports constipation, nausea, vomiting, Parent/caregiver reports the patient having constipation, nausea, vomiting. : No deficits noted. No signs and/or symptoms were reported regarding the genitourinary system. Derm: No deficits noted. No signs and/or symptoms reported regarding the dermatologic system. Skin is intact, is healthy with good turgor, Skin is dry, Skin is pink, warm \T\ dry. Musculoskeletal: No deficits noted. No signs and/or symptoms reported regarding the musculoskeletal system. Circulation, motion, and sensation intact. Range of motion: intact in all extremities. Historical: - Allergies: 03:11 amlodipine; lg3 03:11 Codeine; lg3 03:11 Demerol; lg3 03:11 metronidazole; lg3 - PMHx: 03:11 Hypertension; Hypothyroidism; Dementia; lg3 - Immunization history:: Adult Immunizations up to date, Client reports receiving the 2nd dose of the Covid vaccine, moderna X3. - Social history:: Smoking status: Patient denies any tobacco usage or history of. Patient/guardian denies using alcohol, street drugs. - Family history:: not pertinent. - Hospitalizations: : No recent hospitalization is reported. Screenin:15 Abuse screen: Denies threats or abuse. Denies injuries from another. Nutritional lg3 screening: No deficits noted. Tuberculosis screening: No symptoms or risk factors identified. Fall Risk IV access (20 points). Ambulatory Aid- None/Bed Rest/Nurse Assist (0 pts). Gait- Weak (10 pts.). Mental Status- Overestimates/Forgets Limitations (15 pts.). Total Macias Fall Scale indicates High Risk Score (45 or more points). Side Rails Up X 2 Frequent Obs/Assessments Occuring Family Present and informed to notify staff if the need to leave the bedside. Assessment: 03:09 General: see triage assessment . lg3 03:55 Reassessment: Patient appears in no apparent distress at this time. No changes from lg3 previously documented assessment. Patient and/or family updated on plan of care and expected duration. Pain level reassessed. Patient is alert, oriented x 3, equal unlabored respirations, skin warm/dry/pink. 04:09 Reassessment: Patient appears in no apparent distress at this time. No changes from lg3 previously documented assessment. Patient and/or family updated on plan of care and expected duration. Pain level reassessed. Patient is alert, oriented x 3, equal unlabored respirations, skin warm/dry/pink. Pain: Denies pain. 05:28 Reassessment: Patient appears in no apparent distress at this time. No changes from lg3 previously documented assessment. Patient and/or family updated on plan of care and expected duration. Pain level reassessed. Patient is alert, oriented x 3, equal unlabored respirations, skin warm/dry/pink. Patient states feeling better. Patient states symptoms have improved. Vital Signs: 02:47 BP 141 / 63; Pulse 55; Pulse Ox 99% on R/A; mw2 03:09 BP 153 / 71; Pulse 57; Resp 17; Temp 98.6(O); Pulse Ox 98% on R/A; Weight 72.57 kg (R); lg3 Height 5 ft. 4 in. (162.56 cm) (R); 04:09 BP 144 / 72; Pulse 49; Resp 16; Pulse Ox 100% on R/A; lg3 05:28 BP 155 / 67; Pulse 64; Resp 17; Pulse Ox 100% ; lg3 03:09 Body Mass Index 27.46 (72.57 kg, 162.56 cm) lg3 ED Course: 02:36 Patient arrived in ED. bp1 02:37 Yordan Gandhi MD is Attending Physician. rn 02:49 Viktoriya Arroyo RN is Primary Nurse. lg3 03:05 Initial lab(s) drawn, by me, sent to lab. Inserted saline lock: 18 gauge in right jb4 antecubital area, using aseptic technique. Blood collected. 03:07 Lipase Sent. lg3 03:07 CMP Sent. lg3 03:08 CBC with Diff Sent. lg3 03:11 Triage completed. lg3 03:11 Arm band placed on right wrist. lg3 03:15 Patient has correct armband on for positive identification. Bed in low position. Call lg3 light in reach. Side rails up X2. Client placed on continuous cardiac and pulse oximetry monitoring. NIBP monitoring applied. security monitor on. Door closed. Noise minimized. Warm blanket given. Family accompanied patient. 06:17 No provider procedures requiring assistance completed. IV discontinued, intact, lg3 bleeding controlled, No redness/swelling at site. Pressure dressing applied. Administered Medications: 03:11 Drug: NS 0.9% 1000 ml Route: IV; Rate: 1000 ml; Site: right antecubital; jb4 06:18 Follow up: Response: No adverse reaction; IV Status: Completed infusion; IV Intake: lg3 1000ml 03:12 Drug: NS 0.9% 1000 ml Route: IV; Rate: 1000 ml; Site: right antecubital; jb4 06:18 Follow up: Response: No adverse reaction; IV Status: Completed infusion; IV Intake: lg3 1000ml 03:12 Drug: Zofran (Ondansetron) 4 mg Route: IVP; Site: right antecubital; jb4 03:18 Follow up: Response: No adverse reaction lg3 Medication: 03:18 VIS not applicable for this client. lg3 Intake: 06:18 IV: 1000ml; Total: 1000ml. lg3 06:18 IV: 1000ml; Total: 2000ml. lg3 Outcome: 05:53 Discharge ordered by . rn 06:17 Discharged to home via wheelchair, with family. lg3 06:17 Condition: stable 06:17 Discharge instructions given to patient, family, Instructed on discharge instructions, Demonstrated understanding of instructions. 06:18 Patient left the ED. lg3 Signatures: Yordan Gandhi MD MD rn Bryson, James, RN RN jb4 Liz Heaton mw2 Viktoriya Arroyo, RN RN lg3 Denita Martin [facility]
--- NOTE | 2022-01-20 05:54 | EDPHYS ---
Physician Documentation [facility] Name: Laisha Vasquez Age: 71 yrs Sex: Female : 1950 Arrival Date: 01/20/2022 Time: 02:36 Bed 2 Private MD: ED Physician Yordan Gandhi HPI: 01/20 03:57 This 71 yrs old Female presents to ER via Wheelchair with complaints of dehydration. rn 03:57 reports thinks is "very dehydrated again", will not drink water, reports rn vomited once or twice. No diarrhea. Has had this happen before and improves with IVF. NO fever. Pt denies abd pain/diarrhea. NO trauma. . Onset: The symptoms/episode began/occurred yesterday. Severity of symptoms: At their worst the symptoms were moderate in the emergency department the symptoms are unchanged. The patient has experienced similar episodes in the past. The patient has not recently seen a physician. Historical: - Allergies: 03:11 amlodipine; lg3 03:11 Codeine; lg3 03:11 Demerol; lg3 03:11 metronidazole; lg3 - PMHx: 03:11 Hypertension; Hypothyroidism; Dementia; lg3 - Immunization history:: Adult Immunizations up to date, Client reports receiving the 2nd dose of the Covid vaccine, moderna X3. - Social history:: Smoking status: Patient denies any tobacco usage or history of. Patient/guardian denies using alcohol, street drugs. - Family history:: not pertinent. - Hospitalizations: : No recent hospitalization is reported. ROS: 03:57 Constitutional: Negative for fever, chills, and weight loss, Eyes: Negative for injury, rn pain, redness, and discharge, Neck: Negative for injury, pain, and swelling, Cardiovascular: Negative for chest pain, palpitations, and edema, Respiratory: Negative for shortness of breath, cough, wheezing, and pleuritic chest pain, Abdomen/GI: Negative for abdominal pain, diarrhea Back: Negative for injury and pain, : Negative for injury, bleeding, discharge, and swelling, MS/Extremity: Negative for injury and deformity, Skin: Negative for injury, rash, and discoloration, Neuro: Negative for headache, numbness, tingling, and seizure. Exam: 03:57 Constitutional: This is a well developed, well nourished patient who is awake, alert, rn and in no acute distress. Head/Face: Normocephalic, atraumatic. Eyes: Periorbital areas with no swelling, redness, or edema. ENT: dry MM Cardiovascular: Regular rate and rhythm. No pulse deficits. Respiratory: No increased work of breathing, no retractions or nasal flaring. Abdomen/GI: Soft, non-tender Skin: Warm, dry, small irregular dry and raised lesion left lower abdominal wall MS/ Extremity: Pulses equal, no cyanosis. Neurovascular intact. Full, normal range of motion. Equal circumference. Neuro: Awake and alert, GCS 15, oriented to person, place,not time. Cranial nerves II-XII grossly intact. Motor strength 4/5 in all extremities. Sensory grossly intact. Vital Signs: 02:47 BP 141 / 63; Pulse 55; Pulse Ox 99% on R/A; mw2 03:09 BP 153 / 71; Pulse 57; Resp 17; Temp 98.6(O); Pulse Ox 98% on R/A; Weight 72.57 kg (R); lg3 Height 5 ft. 4 in. (162.56 cm) (R); 04:09 BP 144 / 72; Pulse 49; Resp 16; Pulse Ox 100% on R/A; lg3 05:28 BP 155 / 67; Pulse 64; Resp 17; Pulse Ox 100% ; lg3 03:09 Body Mass Index 27.46 (72.57 kg, 162.56 cm) lg3 MDM: 02:38 Patient medically screened. rn 05:52 Differential Diagnosis dehydration, metabolic disturbance, UTI. Data reviewed: vital rn signs, nurses notes, lab test result(s), and as a result, I will discharge patient. Counseling: I had a detailed discussion with the patient and/or guardian regarding: the historical points, exam findings, and any diagnostic results supporting the discharge/admit diagnosis, lab results, the need for outpatient follow up, to return to the emergency department if symptoms worsen or persist or if there are any questions or concerns that arise at home. Response to treatment: the patient's symptoms have markedly improved after treatment, patient is well hydrated. and as a result, I will discharge patient. Special discussion: I discussed with the patient/guardian in detail that at this point there is no indication for admission to the hospital. It is understood, however, that if the symptoms persist or worsen the patient needs to return immediately for re-evaluation. ED course: Pt improved, agrees, no acute findings in bloodwork. Stable vitals. Urine negative. Will dc home. . 06:17 ED course: Recommend dermatology f/u for skin lesion on abdomen, looks suspicious for rn possible skin cancer. 01/20 02:56 Order name: CBC with Diff; Complete Time: 04:22 rn 01/20 02:56 Order name: CMP; Complete Time: 04:22 rn 01/20 02:56 Order name: Lipase; Complete Time: 04:22 rn 01/20 05:54 Order name: Urine Dipstick-Ancillary EDDE 01/20 02:56 Order name: IV Start; Complete Time: 03:08 rn 01/20 02:56 Order name: Urine Dipstick-Ancillary (obtain specimen); Complete Time: 05:53 rn 01/20 02:56 Order name: Cardiac monitoring; Complete Time: 03:07 rn 01/20 02:56 Order name: O2 Sat Monitoring; Complete Time: 03:07 rn Administered Medications: 03:11 Drug: NS 0.9% 1000 ml Route: IV; Rate: 1000 ml; Site: right antecubital; jb4 06:18 Follow up: Response: No adverse reaction; IV Status: Completed infusion; IV Intake: lg3 1000ml 03:12 Drug: NS 0.9% 1000 ml Route: IV; Rate: 1000 ml; Site: right antecubital; jb4 06:18 Follow up: Response: No adverse reaction; IV Status: Completed infusion; IV Intake: lg3 1000ml 03:12 Drug: Zofran (Ondansetron) 4 mg Route: IVP; Site: right antecubital; jb4 03:18 Follow up: Response: No adverse reaction lg3 Disposition Summary: 01/20/22 05:53 Discharge Ordered Location: Home rn Problem: an ongoing problem rn Symptoms: have improved rn Condition: Stable rn Diagnosis - Dehydration rn - Weakness rn Followup: rn - With: Private Physician - When: As needed - Reason: Recheck today's complaints, Re-evaluation by your physician Discharge Instructions: - Discharge Summary Sheet rn - Dehydration, Adult rn - Weakness rn Forms: - Medication Reconciliation Form rn - Thank You Letter rn - Antibiotic clipper and turner - Prescription Opioid Use rn Signatures: Dispatcher [employer] EDMS Yordan Gandhi MD MD rn Bryson, James, RN RN jb4 Viktoriya Arroyo RN RN lg3 Corrections: (The following items were deleted from the chart) 06:17 03:57 Constitutional: This is a well developed, well nourished patient who is awake, rn alert, and in no acute distress. Head/Face: Normocephalic, atraumatic. Eyes: Periorbital areas with no swelling, redness, or edema. ENT: dry MM Cardiovascular: Regular rate and rhythm. No pulse deficits. Respiratory: No increased work of breathing, no retractions or nasal flaring. Abdomen/GI: Soft, non-tender Skin: Warm, dry MS/ Extremity: Pulses equal, no cyanosis. Neurovascular intact. Full, normal range of motion. Equal circumference. Neuro: Awake and alert, GCS 15, oriented to person, place,not time. Cranial nerves II-XII grossly intact. Motor strength 4/5 in all extremities. Sensory grossly intact. rn
[2022-01-20 06:28] VITALS: TEMP 98.6
[2022-01-20 06:30] VITALS: O2SAT 100
[2022-01-20 06:31] VITALS: BP 155/67
== END 2022-01-20 06:18 | disposition home or self-care (01) ==
LOC: ER 02:33
DX: E86.0 Dehydration (principal); R53.1 Weakness; Z88.6 Allergy status to analgesic agent; Z88.8 Allergy status to other drugs, medicaments and biological substances; I10 Essential (primary) hypertension; E03.9 Hypothyroidism, unspecified; F03.90 Unspecified dementia, unspecified severity, without behavioral disturbance, psychotic disturbance, mood disturbance, and anxiety
CPT/HCPCS: 96361; 85025; 36415; 81003; 83690; 80053; 96374; 99284; J7030; J2405

== ENCOUNTER 2024-10-20 10:33 | Emergency (ER) | payer OTHER ==
--- OUTSIDE RECORDS SUMMARY | 2024-10-20 10:38 | XMS REPORT | Continuity of Care Document ---
Author Name Unknown Address [address] [facility] [place] [address] [facility] Address [address] [facility] 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 Name Role Phone Rachel Marte MD Primary Care Physician Catie Woodson Attending Clinician Unavailable MOMO NORWOOD Attending Clinician Unavail able MOMO NORWOOD Attending Clinician Unavail able Rachel Marte MD Attending Clinician [phone] Dorina Sutherland LVN Attending Clinician UnavailRACHEL Bazan Attending Clinician Unavailable RACHEL MARTE Attending Clinician Unavailable BELKYS LOPEZ Attending Clinician Winifred Belkys Enamorado MD Attending Clinician Momo Norwood MD Attending Clinician [phone] Angelique Levin LCSW Attending Clinician [phone] Lab, Ang - Db Attending Clinician Unavailable Doctor Unassigned, [place] Attending Clinician U chrisailBELKYS Warren Admitting Clinician Winifred vailable Payers Payer Name Policy Type Policy Number Effective Date Expirati on Date Source [employer] MEDICARE 53 [id number] 2022 00:00:00 [facility] MEDICARE PART A \T\ B [id number] 2017 00:00:00 COMMERCIAL NON-CONTRACT GENERIC [id number] 2017 00:00:00 globa.ly [id number] 2017 00:00:00 [facility] MEDIC[place] [id number] 2018 00:00:00 [facility] Problems Condition Name Condition Details Condition Category Status Onset Date Resolution Date Last Treatment Date Treating Clinician Comments Source Acquired hypothyroi dism Acquired hypothyroi dism Disease Active 03-25 00:00: 00 [facility] No known active problems No known active problems Disease [facility] Chronic kidney disease stage 3B (disorder) Stage 3b chronic kidney disease Problem [facility] [id number] Decreased appetite Problem [facility] Essential hypertensi on Benign essential HTN Problem [facility] Osteoporos is Osteoporos is Problem [facility] Diverticul ar disease of colon Diverticul osis large intestine w/o perforatio n or abscess w/o bleeding Problem [facility] Biliary dyskinesia Biliary dyskinesia Problem [facility] Anxiety disorder Anxiety disorder [facility] [id number] Abnormal mammogram of left breast Problem [facility] Family history of malignant neoplasm of breast Family history of breast cancer Problem [facility] Chronic sinusitis Chronic sinusitis, unspecifie d location Problem [facility] Hypothyroi dism Hypothyroi dism Problem [facility] [id number] Memory loss [facility] [id number] Vascular dementia without behavioral disturbanc e Problem [facility] [id number] Allergic rhinitis, unspecifie d seasonalit y, unspecifie d trigger Problem [facility] [id number] +5th digit eff 05/25/20*CK D (chronic kidney disease) stage 3, GFR 30-59 ml/min Problem [facility] Allergies, Adverse Reactions, Alerts Allergy Name Allergy Type Status Severity Reaction(s) Onset Date Inactive Date Treating Clinician Comments Source Amlodipi ne Propensi ty to adverse reaction s Active Swelling 2014-08 00:00: 00 [facility] AMLODIPI NE DRUG INGREDI Active Swelling 2014-08 00:00: 00 [facility] CODEINE DRUG INGREDI Active N/V 2014-08 00:00: 00 [facility] MEPERIDI NE (PF) DRUG Active N/V 2014-08 00:00: 00 [facility] METRONID AZOLE HCL DRUG INGREDI Active Other-Cmnt 2014-08 00:00: 00 [facility] Meperidi ne (Pf) Propensi ty to adverse reaction s Active Nausea and/or Vomiting 2014-08 00:00: 00 [facility] Metronid azole Hcl Propensi ty to adverse reaction s Active Other - See comments 2014-08 00:00: 00 headache [facility] meperidi ne meperidi ne Active Unknown [facility] metronid azole metronid azole Active Unknown [facility] Codeine Codeine Active nausea [facility] amlodipi ne amlodipi ne Active Unknown [facility] Social History Social Habit Start Date Stop Date Quantity Comments Source History SDOH Alcohol Frequency [facility] History SDOH Alcohol Std Drinks [facility] History SDOH Alcohol Binge [facility] Gender identity [facility] Use [facility] Sex Assigned At [facility] Alcoholic beverage intake 2024-07-05 00:00:00 2024-07-05 00:00:00 Ex-drinker (finding) [facility] History of Social function 2023-12-30 00:00:00 2023-12-30 00:00:00 [facility] Alcohol intake 2023-09-11 00:00:00 2023-09-11 00:00:00 Ex-drinker (finding) [facility] Tobacco use and exposure 2023-02-04 00:00:00 2023-02-04 00:00:00 Smokeless tobacco non-user [facility] Exposure to SARS-CoV-2 (event) 2022-03-12 00:00:00 2022-03-22 09:56:00 Not sure [facility] Alcohol Comment 2018-11-13 00:00:00 2018-11-13 00:00:00 rare;y [facility] Smoking Status Start Date Stop Date Source Never Smoker [facility] Medications Ordered Medication Name Filled Medication Name Start Date Stop Date Current Medication? Ordering Clinician Indication Dosage Frequency Signature (SIG) Comments Components Source rivastigmin e 13.3 mg/24 hour PT24 2023-08 00:00: 00 Yes [id number] 13.3mg Apply 13.3 mg (1 patch) to skin daily at 3 pm. [facility] thyroid (ARMOUR THYROID) 15 mg tablet 2023-08 00:00: 00 Yes [id number] 15mg Take 1 tablet by mouth every morning. [facility] thyroid (ARMOUR THYROID) 60 mg tablet 2023-08 00:00: 00 Yes [id number] 60mg Take 1 tablet by mouth every morning. [facility] ramipriL 10 mg capsule 2023-08 00:00: 00 Yes [id number] 10mg Take 1 capsule by mouth in the morning. [facility] rivastigmin e 9.5 mg/24 hour transdermal patch 2023-08 0 00:00: 00 07-05 00:00 :00 No APPLY 1 PATCH TO SKIN EVERY MORNING. [facility] ARMOUR THYROID 60 mg tablet 03-12 00:00: 00 07-05 00:00 :00 No [id number] 60mg TAKE 1 TABLET BY MOUTH EVERY MORNING. [facility] ARMOUR THYROID 15 mg tablet 03-12 00:00: 00 07-05 00:00 :00 No [id number] 15mg TAKE 1 TABLET BY MOUTH EVERY MORNING. [facility] ALPRAZolam (XANAX) 0.25 mg tablet 02-18 11:24: 45 02-18 00:00 :00 No .25mg Take 1 tablet by mouth once daily as needed. [facility] mirtazapine 7.5 mg tablet 02-18 11:24: 36 02-18 00:00 :00 No 7.5mg Take 1 tablet by mouth at bedtime. [facility] rivastigmin e 13.3 mg/24 hour PT24 02-09 00:00: 00 07-05 00:00 :00 No [id number] 13.3mg Apply 13.3 mg to skin Daily at 3 pm. [facility] rivastigmin e 9.5 mg/24 hour patch 12-29 00:00: 00 Yes [id number] 1{patch } Apply 1 Patch to skin every morning. [facility] rivastigmin e 9.5 mg/24 hour patch 12-29 00:00: 00 02-18 00:00 :00 No [id number] 1{patch } Apply 1 Patch to skin every morning. [facility] aspirin (ECOTRIN LOW STRENGTH) 81 mg EC tablet 12-28 07:04: 45 07-05 00:00 :00 No 81mg Take 1 tablet by mouth in the morning. [facility] alendronate 70 mg tablet 12-28 07:04: 45 07-05 00:00 :00 No 70mg Take 1 tablet by mouth weekly. [facility] thyroid (ARMOUR THYROID) 15 mg tablet 12-28 07:04: 45 03-12 00:00 :00 No 1 tablet on an empty stomach on //Fri/Alexander nday and 2 tabs Tue/Thur/S at Orally Once a day for 90 days [facility] thyroid (ARMOUR THYROID) 60 mg tablet 12-28 07:04: 45 03-12 00:00 :00 No 1 tablet on an empty stomach (60 + 15 = 75 mg) Orally Once a day for 90 days [facility] rivastigmin e 9.5 mg/24 hour patch 2022-08 00:00: 00 12-29 00:00 :00 No [id number] 1{patch } Apply 1 Patch to skin every morning. [facility] rivastigmin e 9.5 mg/24 hour patch 2022-08 00:00: 00 12-29 00:00 :00 No [id number] 1{patch } Apply 1 Patch to skin every morning. [facility] thyroid (ARMOUR THYROID) 60 mg tablet 2022-08 00:00: 00 12-28 00:00 :00 No [id number] 60mg Take 1 tablet by mouth every morning. [facility] thyroid 15 mg tablet 2022-08 00:00: 00 12-28 00:00 :00 No [id number] 15mg Take 1 tablet by mouth every morning. [facility] RIVASTIGMIN E 9.5 mg/24 hour patch 2022-08 00:00: 00 06-25 00:00 :00 No [id number] 1{patch } APPLY 1 PATCH TOPICALLY TO SKIN IN THE MORNING. [facility] RIVASTIGMIN E 9.5 mg/24 hour patch 05-07 00:00: 00 Yes [id number] 1{patch } APPLY 1 PATCH TO SKIN IN THE MORNING. [facility] rivastigmin e 9.5 mg/24 hour patch 03-25 14:46: 13 03-25 00:00 :00 No 1{patch } Apply 1 Patch to skin in the morning. [facility] thyroid (ARMOUR THYROID) 15 mg tablet 03-25 14:46: 13 03-25 00:00 :00 No 15mg 1 tablet on an empty stomach on //Fri/Alexander nday and 2 tabs Tue/Thur/S at Orally Once a day for 90 days [facility] thyroid (ARMOUR THYROID) 30 mg tablet 03-25 14:36: 33 03-25 00:00 :00 No 30mg Take 1 tablet by mouth every morning. [facility] carvedilol (COREG) 12.5 mg tablet 03-25 14:35: 10 03-25 00:00 :00 No 12.5mg Take 1 tablet by mouth in the morning and 1 tablet in the evening. Take with meals. [facility] mirtazapine 7.5 mg tablet 03-25 14:25: 09 Yes 7.5mg Take 1 tablet by mouth at bedtime. [facility] ramipril (ALTACE) 10 mg capsule 03-25 14:20: 51 07-05 00:00 :00 No 10mg Take 1 capsule by mouth in the morning. [facility] carvediloL 3.125 mg tablet 03-25 14:20: 51 07-05 00:00 :00 No 3.125mg Take 1 tablet by mouth in the morning. [facility] Thyroid, Pork, (ARMOUR THYROID) 180 mg tablet 03-25 14:18: 42 03-25 00:00 :00 No 195mg Take 195 mg by mouth. [facility] aspirin (ECOTRIN LOW STRENGTH) 81 mg EC tablet 03-25 14:18: 42 03-25 00:00 :00 No 81mg Take 81 mg by mouth daily. [facility] coQ10, ubiquinol, 100 mg Cap 03-25 14:18: 42 03-25 00:00 :00 No Take by mouth. [facility] POTASSIUM GLUCONATE ORAL 03-25 14:18: 03-25 00:00 :00 No Take by mouth. [facility] Cholecalcif andria, Vitamin D3, (VITAMIN D3) 1,000 unit capsule 03-25 14:18: 03-25 00:00 :00 No 1{capsu le} Take 1 capsule by mouth 2 (two) times daily. [facility] loratadine (CLARITIN REDITABS) 10 mg dissolvable tablet 03-25 14:18: 03-25 00:00 :00 No 10mg Take 10 mg by mouth daily. [facility] ALPRAZolam 0.25 mg tablet 03-25 14:18: 03-25 00:00 :00 No .25mg Take 0.25 mg by mouth as needed (daily). [facility] thyroid (ARMOUR THYROID) 60 mg tablet 03-25 00:00: 00 06-25 00:00 :00 No [id number] 60mg Take 1 tablet by mouth every morning. [facility] thyroid 15 mg tablet 03-25 00:00: 00 06-25 00:00 :00 No [id number] 15mg Take 1 tablet by mouth every morning. [facility] rivastigmin e 9.5 mg/24 hour patch 03-25 00:00: 00 05-07 00:00 :00 No [id number] 1{patch } Apply 1 Patch to skin in the morning. [facility] rivastigmin e 13.3 mg/24 hour PT24 6-13 00:00: 00 03-25 00:00 :00 No [id number] 13.3mg Apply 13.3 mg to skin in the morning. [facility] Wittmann Thyroid 15 MG [facility]mann Thyroid 15 MG 2021-08 0-25 00:00: 00 No QD [place] Thyroid 15 MG Mirtazapine 7.5 MG Mirtazapine 7.5 MG 7-21 00:00: 00 No 1{table t_at_be dtime} QD Mirtazapin e 7.5 MG Mirtazapine 7.5 MG Mirtazapine 7.5 MG 7- 00:00: 00 No QD Mirtazapin e 7.5 MG Mirtazapine 7.5 MG Mirtazapine 7.5 MG 03-14 00:00: 00 No QD Mirtazapin e 7.5 MG Sulfamethox azole-Trime thoprim 800-160 MG Sulfamethox azole-Trime thoprim 800-160 MG 7-14 00:00: 00 03-17 00:00 :00 No 1{table t} BID Sulfametho xazole-Tri methoprim 800-160 MG RIVASTIGMIN E 9.5 mg/24 hour patch -17 00:00: 00 02-04 00:00 :00 No [id number] APPLY ONE PATCH TO THE SKIN DAILY [facility] Ventolin HFA 108 (90 Base) MCG/ACT Ventolin HFA 108 (90 Base) MCG/ACT 2018-08 0 00:00: 00 No QID Ventolin HFA 108 (90 Base) MCG/ACT Ventolin HFA 108 (90 Base) MCG/ACT Ventolin HFA 108 (90 Base) MCG/ACT 2018-08 030 00:00: 00 No QID Ventolin HFA 108 (90 Base) MCG/ACT Kenalog (Triamcinol one) Kenalog (Triamcinol one) 2018-08 0 00:00: 00 No 40mg [facility] Kenalog (Triamcinol one) Kenalog (Triamcinol one) 2018-08 030 00:00: 00 No 40mg [facility] Kenalog (Triamcinol one) Kenalog (Triamcinol one) 2018-08 030 00:00: 00 No 40mg [facility] Kenalog (Triamcinol one) Kenalog (Triamcinol one) 2018-08 030 00:00: 00 No 40mg [facility] Kenalog (Triamcinol one) Kenalog (Triamcinol one) 2018-08 0-30 00:00: 00 No 40mg [facility] Kenalog (Triamcinol one) Kenalog (Triamcinol one) 2018-08 0 00:00: 00 No 40mg [facility] Kenalog (Triamcinol one) Kenalog (Triamcinol one) 2018-08 0 00:00: 00 No 40mg [facility] Kenalog (Triamcinol one) Kenalog (Triamcinol one) 2018-08 00:00: 00 No 40mg [facility] Kenalog (Triamcinol one) Kenalog (Triamcinol one) 2018-08 00:00: 00 No 40mg [facility] Kenalog (Triamcinol one) Kenalog (Triamcinol one) 2018-08 00:00: 00 No 40mg [facility] Kenalog (Triamcinol one) Kenalog (Triamcinol one) 2018-08 00:00: 00 No 40mg [facility] Kenalog (Triamcinol one) Kenalog (Triamcinol one) 2018-08 0 00:00: 00 No 40mg [facility] ramipril (ALTACE) 10 mg capsule 11-13 15:29: 38 Yes 10mg Take 1 capsule by mouth in the morning. [facility] aspirin (ECOTRIN LOW STRENGTH) 81 mg EC tablet 11-13 15:29: 38 Yes 81mg Take 1 tablet by mouth in the morning. [facility] coQ10, ubiquinol, 100 mg Cap 11-13 15:29: 38 Yes Take by mouth. [facility] POTASSIUM GLUCONATE ORAL 11-13 15:29: 38 Yes Take by mouth. [facility] Cholecalcif andria, Vitamin D3, (VITAMIN D3) 1,000 unit capsule 11-13 15:29: 38 Yes 1{capsu le} Take 1 capsule by mouth 2 (two) times daily. [facility] loratadine (CLARITIN REDITABS) 10 mg dissolvable tablet 11-13 15:29: 38 Yes 10mg Take 10 mg by mouth daily. [facility] ALPRAZolam (XANAX) 0.25 mg tablet 11-13 15:29: 38 Yes .25mg Take 1 tablet by mouth once daily as needed. [facility] Thyroid, Pork, (ARMOUR THYROID) 180 mg tablet 11-13 15:04: 40 Yes 195mg Take 195 mg by mouth. [facility] ARMOUR THYROID 60 mg tablet 10-10 00:00: 00 03-25 00:00 :00 No 60mg Take 1 tablet by mouth every morning. [facility] dicyclomine (BENTYL) 20 mg tablet 2014-08 00:00: 00 03-25 00:00 :00 No 20mg Take 1 Tab by mouth 4 (four) times daily. [facility] diphenoxyla te-atropine (LOMOTIL) 2.5-0.025 mg per tablet 2014-08 00:00: 00 03-25 00:00 :00 No 1{tbl} Take 1 Tab by mouth every 6 (six) hours as needed for Other (Diarrhea) . [facility] ondansetron (ZOFRAN, HYDROCHLORI DE,) 4 mg tablet 2014-08 00:00: 00 03-25 00:00 :00 No 4mg Take 1 Tab by mouth every 8 (eight) hours as needed for Nausea and Vomiting (N/V). [facility] Ramipril Ramipril Yes Catie Woodson 1 capsule [facility] Ramipril 10 MG Ramipril 10 MG No 1{capsu le} BID Ramipril 10 MG Ecotrin Low Strength 81 MG Ecotrin Low Strength 81 MG No 1{table t} QD Ecotrin Low Strength 81 MG Aspir-Low 81 MG Aspir-Low 81 MG No 1{table t} QD Aspir-Low 81 MG Folic Acid 400 MCG Folic Acid 400 MCG No 1{table t} QD Folic Acid 400 MCG Xanax 0.25 MG Xanax 0.25 MG No 1{table t} Xanax 0.25 MG Magnesium 250 MG Magnesium 250 MG No 1{table t_with_ a_meal} QD Magnesium 250 MG Prevagen 10 MG Prevagen 10 MG No Prevagen 10 MG Claritin 10 MG Claritin 10 MG No 1{table t} QD Claritin 10 MG Turmeric 500 MG Turmeric 500 MG No Turmeric 500 MG CoQ10 100 MG CoQ10 100 MG No 1{capsu le_with _a_meal } QD CoQ10 100 MG Stool Softener 250 MG Stool Softener 250 MG No 1{capsu le_as_n eeded} Stool Softener 250 MG Alendronate Sodium 70 MG Alendronate Sodium 70 MG No 1{table t} Alendronat e Sodium 70 MG Vitamin B12 1000 MCG Vitamin B12 1000 MCG No 1{table t} QD Vitamin B12 1000 MCG Wittmann Thyroid 90 MG Wittmann Thyroid 90 MG No 1{table t_on_an _empty_ stomach } QD [place]mann Thyroid 90 MG Potassium Gluconate 550 MG Potassium Gluconate 550 MG No 1{table t} QD Potassium Gluconate 550 MG Folic Acid 400 MCG Folic Acid 400 MCG No 1{table t} QD Folic Acid 400 MCG Claritin 10 MG Claritin 10 MG No 1{table t} QD Claritin 10 MG Turmeric 500 MG Turmeric 500 MG No Turmeric 500 MG Potassium Gluconate 550 MG Potassium Gluconate 550 MG No 1{table t} QD Potassium Gluconate 550 MG Carvedilol 12.5 MG Carvedilol 12.5 MG No BID Carvedilol 12.5 MG Ramipril 10 MG Ramipril 10 MG No 1{capsu le} BID Ramipril 10 MG Ecotrin Low Strength 81 MG Ecotrin Low Strength 81 MG No 1{table t} QD Ecotrin Low Strength 81 MG Aspir-Low 81 MG Aspir-Low 81 MG No 1{table t} QD Aspir-Low 81 MG Folic Acid 400 MCG Folic Acid 400 MCG No 1{table t} QD Folic Acid 400 MCG Xanax 0.25 MG Xanax 0.25 MG No 1{table t} Xanax 0.25 MG Magnesium 250 MG Magnesium 250 MG No 1{table t_with_ a_meal} QD Magnesium 250 MG Prevagen 10 MG Prevagen 10 MG No Prevagen 10 MG Claritin 10 MG Claritin 10 MG No 1{table t} QD Claritin 10 MG Turmeric 500 MG Turmeric 500 MG No Turmeric 500 MG CoQ10 100 MG CoQ10 100 MG No 1{capsu le_with _a_meal } QD CoQ10 100 MG Stool Softener 250 MG Stool Softener 250 MG No 1{capsu le_as_n eeded} Stool Softener 250 MG Wittmann Thyroid 15 MG Wittmann Thyroid 15 MG No Wittmann Thyroid 15 MG Alendronate Sodium 70 MG Alendronate Sodium 70 MG No 1{table t} Alendronat e Sodium 70 MG Vitamin B12 1000 MCG Vitamin B12 1000 MCG No 1{table t} QD Vitamin B12 1000 MCG Wittmann Thyroid 90 MG Wittmann Thyroid 90 MG No 1{table t_on_an _empty_ stomach } QD Wittmann Thyroid 90 MG Potassium Gluconate 550 MG Potassium Gluconate 550 MG No 1{table t} QD Potassium Gluconate 550 MG Ecotrin Low Strength 81 MG Ecotrin Low Strength 81 MG No 1{table t} QD Ecotrin Low Strength 81 MG Carvedilol 3.125 MG Carvedilol 3.125 MG No 1{table t_with_ food} QD Carvedilol 3.125 MG Alendronate Sodium 70 MG Alendronate Sodium 70 MG No 1{table t} Alendronat e Sodium 70 MG Ramipril 10 MG Ramipril 10 MG No 1{capsu le} BID Ramipril 10 MG Aspir-Low 81 MG Aspir-Low 81 MG No 1{table t} QD Aspir-Low 81 MG Wittmann Thyroid 90 MG Wittmann Thyroid 90 MG No 1{table t_on_an _empty_ stomach } QD [place]mann Thyroid 90 MG Xanax 0.25 MG Xanax 0.25 MG No 1{table t} Xanax 0.25 MG Ecotrin Low Strength 81 MG Ecotrin Low Strength 81 MG No 1{table t} QD Ecotrin Low Strength 81 MG Carvedilol 3.125 MG Carvedilol 3.125 MG No 1{table t_with_ food} QD Carvedilol 3.125 MG Alendronate Sodium 70 MG Alendronate Sodium 70 MG No 1{table t} Alendronat e Sodium 70 MG Ramipril 10 MG Ramipril 10 MG No 1{capsu le} BID Ramipril 10 MG Aspir-Low 81 MG Aspir-Low 81 MG No 1{table t} QD Aspir-Low 81 MG Wittmann Thyroid 90 MG Wittmann Thyroid 90 MG No 1{table t_on_an _empty_ stomach } QD [place]mann Thyroid 90 MG Xanax 0.25 MG Xanax 0.25 MG No 1{table t} Xanax 0.25 MG Alendronate Sodium 70 MG Alendronate Sodium 70 MG No 1{table t} Alendronat e Sodium 70 MG Ecotrin Low Strength 81 MG Ecotrin Low Strength 81 MG No 1{table t} QD Ecotrin Low Strength 81 MG Ramipril 10 MG Ramipril 10 MG No 1{capsu le} BID Ramipril 10 MG Carvedilol 3.125 MG Carvedilol 3.125 MG No 1{table t_with_ food} QD Carvedilol 3.125 MG Xanax 0.25 MG Xanax 0.25 MG No 1{table t} Xanax 0.25 MG Aspir-Low 81 MG Aspir-Low 81 MG No 1{table t} QD Aspir-Low 81 MG Wittmann Thyroid 15 MG Wittmann Thyroid 15 MG No QD [place]mann Thyroid 15 MG GEOGRAPHIC INFORMATION SYSTEMS MANAGER Thyroid 60 MG GEOGRAPHIC INFORMATION SYSTEMS MANAGER Thyroid 60 MG No GEOGRAPHIC INFORMATION SYSTEMS MANAGER Thyroid 60 MG Mirtazapine 7.5 MG Mirtazapine 7.5 MG No 1.5{tab let_at_ bedtime } QD Mirtazapin e 7.5 MG Ecotrin Low Strength 81 MG Ecotrin Low Strength 81 MG No 1{table t} QD Ecotrin Low Strength 81 MG Aspir-Low 81 MG Aspir-Low 81 MG No 1{table t} QD Aspir-Low 81 MG Xanax 0.25 MG Xanax 0.25 MG No 1{table t} Xanax 0.25 MG Alendronate Sodium 70 MG Alendronate Sodium 70 MG No 1{table t} Alendronat e Sodium 70 MG Ramipril 10 MG Ramipril 10 MG No 1{capsu le} BID Ramipril 10 MG [employer]OGR[employer] INFORMATION SYSTEMS MANAGER Thyroid 60 MG GEOGRAPHIC INFORMATION SYSTEMS MANAGER Thyroid 60 MG No GEOGRAPHIC INFORMATION SYSTEMS MANAGER Thyroid 60 MG Mirtazapine 7.5 MG Mirtazapine 7.5 MG No 1.5{tab let_at_ bedtime } QD Mirtazapin e 7.5 MG Ecotrin Low Strength 81 MG Ecotrin Low Strength 81 MG No 1{table t} QD Ecotrin Low Strength 81 MG Aspir-Low 81 MG Aspir-Low 81 MG No 1{table t} QD Aspir-Low 81 MG Xanax 0.25 MG Xanax 0.25 MG No 1{table t} Xanax 0.25 MG Alendronate Sodium 70 MG Alendronate Sodium 70 MG No 1{table t} Alendronat e Sodium 70 MG Ramipril 10 MG Ramipril 10 MG No 1{capsu le} BID Ramipril 10 MG Ecotrin Low Strength 81 MG Ecotrin Low Strength 81 MG No 1{table t} QD Ecotrin Low Strength 81 MG Ramipril 10 MG Ramipril 10 MG No 1{capsu le} BID Ramipril 10 MG Xanax 0.25 MG Xanax 0.25 MG No 1{table t} Xanax 0.25 MG Carvedilol 3.125 MG Carvedilol 3.125 MG No Carvedilol 3.125 MG GEOGRAPHIC INFORMATION SYSTEMS MANAGER Thyroid 60 MG GEOGRAPHIC INFORMATION SYSTEMS MANAGER Thyroid 60 MG No GEOGRAPHIC INFORMATION SYSTEMS MANAGER Thyroid 60 MG Alendronate Sodium 70 MG Alendronate Sodium 70 MG No 1{table t} Alendronat e Sodium 70 MG Aspir-Low 81 MG Aspir-Low 81 MG No 1{table t} QD Aspir-Low 81 MG Ecotrin Low Strength 81 MG Ecotrin Low Strength 81 MG No 1{table t} QD Ecotrin Low Strength 81 MG Ramipril 10 MG Ramipril 10 MG No 1{capsu le} BID Ramipril 10 MG Xanax 0.25 MG Xanax 0.25 MG No 1{table t} Xanax 0.25 MG Carvedilol 3.125 MG Carvedilol 3.125 MG No Carvedilol 3.125 MG GEOGRAPHIC INFORMATION SYSTEMS MANAGER Thyroid 60 MG GEOGRAPHIC [employer]FORMATION SYSTEMS MANAGER Thyroid 60 MG No GEOGRAPHIC INFORMATION SYSTEMS MANAGER Thyroid 60 MG Alendronate Sodium 70 MG Alendronate Sodium 70 MG No 1{table t} Alendronat e Sodium 70 MG Aspir-Low 81 MG Aspir-Low 81 MG No 1{table t} QD Aspir-Low 81 MG Carvedilol 3.125 MG Carvedilol 3.125 MG No 1{table t_with_ food} QD Carvedilol 3.125 MG Ecotrin Low Strength 81 MG Ecotrin Low Strength 81 MG No 1{table t} QD Ecotrin Low Strength 81 MG Ramipril 10 MG Ramipril 10 MG No 1{capsu le} BID Ramipril 10 MG Xanax 0.25 MG Xanax 0.25 MG No 1{table t} Xanax 0.25 MG Alendronate Sodium 70 MG Alendronate Sodium 70 MG No 1{table t} Alendronat e Sodium 70 MG GEOGR[employer]IC INFORMATION SYSTEMS MANAGER Thyroid 60 MG GEOGRAPHIC INFORMATION SYSTEMS MANAGER Thyroid 60 MG No GEOGR[employer]IC INFORMATION SYSTEMS MANAGER Thyroid 60 MG Aspir-Low 81 MG Aspir-Low 81 MG No 1{table t} QD Aspir-Low 81 MG Carvedilol 3.125 MG Carvedilol 3.125 MG No 1{table t_with_ food} QD Carvedilol 3.125 MG Ecotrin Low Strength 81 MG Ecotrin Low Strength 81 MG No 1{table t} QD Ecotrin Low Strength 81 MG Ramipril 10 MG Ramipril 10 MG No 1{capsu le} BID Ramipril 10 MG Xanax 0.25 MG Xanax 0.25 MG No 1{table t} Xanax 0.25 MG Carvedilol 3.125 MG Carvedilol 3.125 MG No Carvedilol 3.125 MG Alendronate Sodium 70 MG Alendronate Sodium 70 MG No 1{table t} Alendronat e Sodium 70 MG GEOGRAPHIC INFORMATION SYSTEMS MANAGER Thyroid 60 MG GEOGRAPHIC INFORMATION SYSTEMS MANAGER Thyroid 60 MG No GEOGRAPHIC INFORMATION SYSTEMS MANAGER Thyroid 60 MG Aspir-Low 81 MG Aspir-Low 81 MG No 1{table t} QD Aspir-Low 81 MG Carvedilol 3.125 MG Carvedilol 3.125 MG No 1{table t_with_ food} QD Carvedilol 3.125 MG Ecotrin Low Strength 81 MG Ecotrin Low Strength 81 MG No 1{table t} QD Ecotrin Low Strength 81 MG Ramipril 10 MG Ramipril 10 MG No 1{capsu le} BID Ramipril 10 MG Xanax 0.25 MG Xanax 0.25 MG No 1{table t} Xanax 0.25 MG Alendronate Sodium 70 MG Alendronate Sodium 70 MG No 1{table t} Alendronat e Sodium 70 MG GEOGRAPHIC INFORMATION SYSTEMS MANAGER Thyroid 60 MG GEOGRAPHIC [employer]FORMATION SYSTEMS MANAGER Thyroid 60 MG No GEOGRAPHIC [employer]FORMATION SYSTEMS MANAGER Thyroid 60 MG Aspir-Low 81 MG Aspir-Low 81 MG No 1{table t} QD Aspir-Low 81 MG Carvedilol 3.125 MG Carvedilol 3.125 MG No 1{table t_with_ food} QD Carvedilol 3.125 MG Ecotrin Low Strength 81 MG Ecotrin Low Strength 81 MG No 1{table t} QD Ecotrin Low Strength 81 MG Ramipril 10 MG Ramipril 10 MG No 1{capsu le} BID Ramipril 10 MG Xanax 0.25 MG Xanax 0.25 MG No 1{table t} Xanax 0.25 MG Alendronate Sodium 70 MG Alendronate Sodium 70 MG No 1{table t} Alendronat e Sodium 70 MG GEOGRAPHIC INFORMATION SYSTEMS MANAGER Thyroid 60 MG GEOGRAPHIC INFORMATION SYSTEMS MANAGER Thyroid 60 MG No GEOGRAPHIC INFORMATION SYSTEMS MANAGER Thyroid 60 MG Aspir-Low 81 MG Aspir-Low 81 MG No 1{table t} QD Aspir-Low 81 MG Turmeric 500 MG Turmeric 500 MG No Turmeric 500 MG Vital Signs Vital Name Observation Time Observation Value Comments S our Systolic blood pressure 2024-07-05 22:18:00 175 mm[Hg] General acute hospital Diastolic blood pressure 2024-07-05 22:18:00 82 mm[Hg] General acute hospital Heart rate 2024-07-05 22:05:00 72 /min [facility] Respiratory rate 2024-07-05 22:05:00 18 /min [facility] Body height 2024-07-05 22:05:00 157.5 cm [facility] Body weight 2024-07-05 22:05:00 76.93 kg [facility] BMI 2024-07-05 22:05:00 31.02 kg/m2 [facility] Oxygen saturation in Arterial blood by Pulse oximetry 2024-07-05 22:05:00 98 /min General acute hospital Heart rate 2024-02-10 20:21:00 64 /min [facility] Body height 2024-02-10 20:21:00 157.5 cm [facility] Body weight 2024-02-10 20:21:00 80.74 kg [facility] BMI 2024-02-10 20:21:00 32.56 kg/m2 [facility] Oxygen saturation in Arterial blood by Pulse oximetry 2024-02-10 20:21:00 100 /min General acute hospital Systolic blood pressure 2023-12-30 20:21:00 136 mm[Hg] General acute hospital Diastolic blood pressure 2023-12-30 20:21:00 62 mm[Hg] General acute hospital Heart rate 2023-12-30 20:21:00 69 /min [facility] Body temperature 2023-12-30 20:21:00 36.83 Alize [facility] Body weight 2023-12-30 20:21:00 79.833 kg [facility] BMI 2023-12-30 20:21:00 32.19 kg/m2 [facility] Systolic blood pressure 2023-06-25 19:08:00 144 mm[Hg] General acute hospital Diastolic blood pressure 2023-06-25 19:08:00 77 mm[Hg] General acute hospital Heart rate 2023-06-25 19:07:00 73 /min [facility] Body temperature 2023-06-25 19:07:00 36.72 Alize [facility] Body height 2023-06-25 19:07:00 157.5 cm [facility] Body weight 2023-06-25 19:07:00 82.963 kg [facility] BMI 2023-06-25 19:07:00 33.45 kg/m2 [facility] Oxygen saturation in Arterial blood by Pulse oximetry 2023-06-25 19:07:00 98 /min General acute hospital Systolic blood pressure 2023 19:07:00 128 mm[Hg] General acute hospital Diastolic blood pressure 2023 19:07:00 79 mm[Hg] General acute hospital Heart rate 2023 19:07:00 67 /min [facility] Respiratory rate 2023 19:07:00 16 /min [facility] Body height 2023 19:07:00 157.5 cm [facility] Body weight 2023 19:07:00 84.006 kg [facility] BMI 2023 19:07:00 33.87 kg/m2 [facility] Oxygen saturation in Arterial blood by Pulse oximetry 2023 19:07:00 97 /min General acute hospital Systolic blood pressure 2023-02-04 20:05:00 126 mm[Hg] General acute hospital Diastolic blood pressure 2023-02-04 20:05:00 76 mm[Hg] General acute hospital Heart rate 2023-02-04 20:05:00 93 /min [facility] Body height 2023-02-04 20:05:00 157.5 cm [facility] Body weight 2023-02-04 20:05:00 69.854 kg [facility] BMI 2023-02-04 20:05:00 28.17 kg/m2 [facility] Oxygen saturation in Arterial blood by Pulse oximetry 2023-02-04 20:05:00 98 /min General acute hospital height 2022-09-25 14:40:00 62 [in_i] Commo n [facility] weight 2022-09-25 14:40:00 168 [lb_av] Comm on [facility] bmi 2022-09-25 14:40:00 30.72 kg/m2 Comm on [facility] height 2022-06-18 15:00:00 62 [in_i] Commo n [facility] weight 2022-06-18 15:00:00 168 [lb_av] Comm on [facility] temperature 2022-06-18 15:00:00 96.9 [degF] Com mon [facility] bmi 2022-06-18 15:00:00 30.72 kg/m2 Comm on [facility] oximetry 2022-06-18 15:00:00 98 % Commo n [facility] respiratory rate 2022-06-18 15:00:00 18 /min Common [facility] blood pressure systolic 2022-06-18 15:00:00 136 mm[Hg] [facility] blood pressure diastolic 2022-06-18 15:00:00 62 mm[Hg] [facility] Systolic blood pressure 2022-03-22 15:21:00 106 mm[Hg] General acute hospital Diastolic blood pressure 2022-03-22 15:21:00 66 mm[Hg] General acute hospital Heart rate 2022-03-22 15:21:00 73 /min [facility] Body weight 2022-03-22 15:21:00 69.854 kg [facility] BMI 2022-03-22 15:21:00 28.17 kg/m2 [facility] height 2022-03-18 15:10:00 62 [in_i] Commo n [facility] weight 2022-03-18 15:10:00 149 [lb_av] Comm on [facility] temperature 2022-03-18 15:10:00 97.3 [degF] Com [facility] bmi 2022-03-18 15:10:00 27.25 kg/m2 Comm on [facility] oximetry 2022-03-18 15:10:00 97 % Commo n [facility] respiratory rate 2022-03-18 15:10:00 16 /min [facility] blood pressure systolic 2022-03-18 15:10:00 114 mm[Hg] [facility] blood pressure diastolic 2022-03-18 15:10:00 56 mm[Hg] [facility] height 2022-03-18 15:00:00 62 [in_i] Commo n [facility] weight 2022-03-18 15:00:00 149 [lb_av] Comm on [facility] temperature 2022-03-18 15:00:00 97.3 [degF] Com [facility] bmi 2022-03-18 15:00:00 27.25 kg/m2 Comm on [facility] oximetry 2022-03-18 15:00:00 97 % Commo n [facility] respiratory rate 2022-03-18 15:00:00 16 /min Common [facility] blood pressure systolic 2022-03-18 15:00:00 114 mm[Hg] Common [facility] blood pressure diastolic 2022-03-18 15:00:00 56 mm[Hg] Common [facility] height 2022-03-07 10:00:00 62 [in_i] Commo n [facility] weight 2022-03-07 10:00:00 178.0 [lb_av] Co mmon [facility] temperature 2022-03-07 10:00:00 97.2 [degF] Com mon [facility] bmi 2022-03-07 10:00:00 32.55 kg/m2 Comm on [facility] oximetry 2022-03-07 10:00:00 95 % Commo n [facility] respiratory rate 2022-03-07 10:00:00 17 /min [facility] blood pressure systolic 2022-03-07 10:00:00 116 mm[Hg] Common [facility] blood pressure diastolic 2022-03-07 10:00:00 58 mm[Hg] Common [facility] weight 2021-05-24 10:00:00 178 [lb_av] Comm on [facility] temperature 2021-05-24 10:00:00 98 [degF] Comm on [facility] bmi 2021-05-24 10:00:00 32.55 kg/m2 Comm on [facility] oximetry 2021-05-24 10:00:00 98 % Commo n [facility] blood pressure systolic 2021-05-24 10:00:00 133 mm[Hg] Common [facility] blood pressure diastolic 2021-05-24 10:00:00 64 mm[Hg] Common [facility] height 2021-05-24 10:00:00 62 [in_i] Commo n [facility] Procedures Procedure Date / Time Performed Performing Clinicia n Source ASSIGNMENT OF BENEFITS 2023-02-04 19:49:55 Docto r Unassigned, [place] [facility] Encounters Start Date/Time End Date/Time Encounter Type Admission Type Attending [facility] Care Department Encounter ID Source 2022-09-25 08:22:00 Outpatient Woodson, Catie STLC STLMLC [id number] [facility] 2022-09-23 15:02:01 Outpatient Woodson, Catie STLC STLMLC [id number] [facility] 2022-06-14 10:01:00 Outpatient Woodson, Catie STLC STLMLC [id number] [facility] 2022-03-13 11:06:00 Outpatient Woodson, Catie STLC STLMLC [id number] [facility] 2021-09-19 12:34:10 Outpatient Woodson, Catie STLC STLMLC [id number] [facility] 2021-09-19 12:33:38 Outpatient Woodson, Catie STLC STLMLC [id number] [facility] 2021-09-19 12:32:30 Outpatient Woodson, Catie STLC STLMLC [id number] [facility] 2021-09-19 11:56:09 Outpatient Woodson, Catie STLC STLMLC [id number] [facility] 2021-09-19 11:16:51 Outpatient Woodson, Catie STLC STLMLC [id number] [facility] 2021-09-19 11:05:30 Outpatient Woodson, Catie STLMLC STLMLC [id number] [facility] 2021-09-19 10:59:46 Outpatient Woodson, Catie STLC STLMLC [id number] [facility] 2021-09-19 10:58:17 Outpatient Woodson, Catie STLMLC STLMLC [id number] [facility] 2024-10-10 00:00:00 2024-10-10 17:33:25 Telephone Katielea Rachel [facility] 1.2.840.114 350.1.13.10 4.2.7.2.686 [id number] [facility] 2023-12-29 00:00:00 2024-10-09 07:51:52 Orders Only Dorina Sutherland Per[facility] 1.2.840.114 350.1.13.10 4.2.7.2.686 [id number] [facility] 2024-07-05 16:20:00 2024-07-05 16:50:49 Outpatient R RACHEL [facility]TE [facility] [id number] [facility] 2024-07-05 16:20:00 2024-07-05 16:50:49 Office Visit Estuardo [facility] SEAN?[facility] 1.2.840.114 350.1.13.10 4.2.7.2.686 [id number] [facility] 2024-03-11 00:00:00 2024-03-12 08:17:30 [facility]ys [facility] 1.2.840.114 350.1.13.10 4.2.7.2.686 [id number] [facility] 2024-02-10 15:20:00 2024-02-10 16:11:29 Outpatient MOMO [facility] [id number] [facility] 2024-02-10 15:20:00 2024-02-10 16:11:29 Office Visit Momo Norwood [facility] [facility] 1.2.840.114 350.1.13.10 4.2.7.2.686 [id number] [facility] 2024-01-16 14:40:00 2024-01-16 14:40:00 Outpatient M[facility]O [facility] [id number] [facility] 2023-12-31 00:00:00 2023-12-31 11:20:20 Patient Outreach Angelique Levin [facility]?[employer] [facility] 1.2.840.114 350.1.13.10 4.2.7.2.686 [id number] [facility] 2023-12-30 15:45:00 2023-12-30 16:41:29 Survival Specialist Visit Lab, Belkys Benavides [facility]?[employer] [facility] 1.2.840.114 350.1.13.10 4.2.7.2.686 [id number] [facility] 2023-12-30 15:20:00 2023-12-30 15:43:12 Outpatient BELKYS [facility] [id number] [facility] 2023-12-30 15:20:00 2023-12-30 15:43:12 Office Visit Belkys Lopez [facility]?[employer] [facility] 1.2.840.114 350.1.13.10 4.2.7.2.686 [id number] [facility] 2023-12-26 12:40:00 2023-12-26 12:40:00 Outpatient M[facility]O [facility] [id number] [facility] 2023-09-11 14:33:54 2023-09-11 23:59:00 Outpatient [facility] [id number] [facility] 2023-09-11 14:33:54 2023-09-11 23:59:00 Hospital Encounter Jessica [facility] 1..840.114 350.1.13.10 4.2.7.2.686 [id number] [facility] 2023-09-01 00:00:00 2023-09-01 00:00:00 Outpatient R BELKYS [facility] [id number] [facility] 2023-08-14 00:00:00 2023-08-14 00:00:00 Outpatient R [facility] [id number] [facility] 2023-06-25 13:40:00 2023-06-25 14:30:23 Outpatient R [facility]KYS [facility] [id number] [facility] 2023-06-25 13:40:00 2023-06-25 14:30:23 Office Visit Belkys Lopez [facility] 1.2.840.114 350.1.13.10 4.2.7.2.686 [id number] [facility] 2023-06-17 00:00:00 2023-06-17 00:00:00 Telephone Belkys Lopez [facility] 1.2.840.114 350.1.13.10 4.2.7.2.686 [id number] [facility] 2023-06-16 00:00:00 2023-06-16 00:00:00 (TEL) STLMLC STLMLC [id number] [facility] 2023-05-30 00:00:00 2023-05-30 00:00:00 Refill Belkys Lopez [facility]?[employer] [facility] 1.840.114 350.1.13.10 4.2.7.2.686 [id number] [facility] 2023-05-01 00:00:00 2023-05-01 00:00:00 Refill Belkys Lopez [place] [facility]?[employer] [facility] 1.840.114 350.1.13.10 4.2.7.2.686 [id number] [facility] 2023 15:00:00 2023 15:15:00 Survival Specialist Visit Lab, Belkys Benavides [facility]?[employer] [facility] 1..840.114 350.1.13.10 4.2.7.2.686 [id number] [facility] 2023 15:00:00 2023 15:00:00 Outpatient R [facility]KYS [facility] [id number] [facility] 2023 14:00:00 2023 14:53:41 Office Visit Belkys Lopez [facility]?[employer] [facility] 1.840.114 350.1.13.10 4.2.7.2.686 [id number] [facility] 2023-02-19 00:00:00 2023-02-19 00:00:00 (TEL) STLMLC STLMLC [id number] [facility] 2023-02-13 00:00:00 2023-02-13 00:00:00 Momo Parker [facility]?[employer] [facility] 1.840.114 350.1.13.10 4.2.7.2.686 [id number] [facility] 2023-02-04 14:40:00 2023-02-04 16:04:57 Outpatient R MOMO [facility]OD [facility] [id number] [facility] 2023-02-04 14:40:00 2023-02-04 16:04:57 Office Visit Momo Norwood [facility] ESTARDA?[facility] 1.2.840.114 350.1.13.10 4.2.7.2.686 [id number] [facility] 2023-02-04 00:00:00 2023-02-04 00:00:00 Orders Only Doctor Unassigned, [place] [facility] 1.2.840.114 350.1.13.10 4.2.7.2.686 [id number] [facility] 2023-02-03 00:00:00 2023-02-03 00:00:00 (TEL) STLMLC STLMLC [id number] [facility] 2022-12-27 00:00:00 2022-12-27 00:00:00 (TEL) STLMLC STLMLC [id number] [facility] 2022-10-02 00:00:00 2022-10-02 00:00:00 (TEL) STLMLC STLMLC [id number] [facility] 2022-09-30 00:00:00 2022-09-30 00:00:00 (TEL) STLMLC STLMLC [id number] [facility] 2022-09-25 00:00:00 2022-09-25 00:00:00 OFFICE VISIT ESTAB PT LEVEL [id number] [facility] 2022-06-18 00:00:00 2022-06-18 00:00:00 OFFICE VISIT ESTAB PT LEVEL [id number] [facility] 2022-04-11 00:00:00 2022-04-11 00:00:00 (TEL) STLMLC STLMLC [id number] [facility] 2022-04-11 00:00:00 2022-04-11 00:00:00 [facility] [id number] 2022-03-22 09:40:00 2022-03-22 10:47:09 Outpatient M[facility]O [facility] [id number] [facility] 2022-03-22 09:40:00 2022-03-22 10:47:09 Office Visit Enma Momo [facility] 1.2.840.114 350.1.13.10 4.2.7.2.686 [id number] [facility] 2022-03-22 09:40:00 2022-03-22 10:47:09 Outpatient M[facility] [id number] [facility] 2022-03-22 00:00:00 2022-03-22 00:00:00 Letter (Out) [facility] 1.2.840.114 350.1.13.10 4.2.7.2.686 [id number] [facility] 2022-03-18 00:00:00 2022-03-18 00:00:00 OFFICE VISIT ESTAB [facility]EVEL [facility] [id number] 2022-03-18 00:00:00 2022-03-18 00:00:00 SUB ANNUAL [facility] VISIT [facility] [id number] [facility] 2022-03-13 00:00:00 2022-03-13 00:00:00 (TEL) [facility] [id number] [facility] 2022-03-13 00:00:00 2022-03-13 00:00:00 Telephone Enma Momo [facility]?[employer] [facility] 1.2.840.114 350.1.13.10 4.2.7.2.686 [id number] [facility] 2022-03-13 00:00:00 2022-03-13 00:00:00 [facility] 1.2.840.114 350.1.13.10 4.2.7.2.686 [id number] [facility] 2022-03-11 00:00:00 2022-03-11 00:00:00 (TEL) STLMLC STLMLC [id number] [facility] 2022-03-07 00:00:00 2022-03-07 00:00:00 OFFICE VISIT ESTAB PT LEVEL [id number] [facility] 2022-03-07 00:00:00 2022-03-07 00:00:00 (TEL) STLMLC STLMLC [id number] [facility] 2022-03-05 00:00:00 2022-03-05 00:00:00 (TEL) STLMLC STLMLC [id number] [facility] 2022-02-15 00:00:00 2022-02-15 00:00:00 (TEL) STLMLC STLMLC [id number] [facility] 2021-10-03 00:00:00 2021-10-03 00:00:00 (TEL) STLMLC STLMLC [id number] [facility] 2021-09-06 00:00:00 2021-09-06 00:00:00 (TEL) STLMLC STLMLC [id number] [facility] 2021-09-03 00:00:00 2021-09-03 00:00:00 Marilin Enma Mom[facility] 1.2.840.114 350.1.13.10 4.2.7.2.686 [id number] [facility] 2021-08-31 00:00:00 2021-08-31 00:00:00 Momo Granado [facility] 1.2.840.114 350.1.13.10 4.2.7.2.686 [id number] [facility] 2021-08-19 00:00:00 2021-08-19 00:00:00 Momo Granado [facility] 1.2.840.114 350.1.13.10 4.2.7.2.686 [id number] [facility] 2021-05-24 00:00:00 2021-05-24 00:00:00 (TELEAUD) AUDIO TELEMEDICI NE STLMLC STLMLC [id number] [facility] 2021-04-10 00:00:00 2021-04-10 00:00:00 Momo Granado [facility] 1.2.840.114 350.1.13.10 4.2.7.2.686 [id number] [facility] 2021-01-18 00:00:00 2021-01-18 00:00:00 Outpatient STLMLC [facility]C [id number] [facility] 2021-01-18 00:00:00 2021-01-18 00:00:00 Outpatient STLMLC STLMLC [id number] [facility] 2020-10-19 00:00:00 2020-10-19 00:00:00 Out[address]LMLC [id number] [facility] 2020-10-18 00:00:00 2020-10-18 00:00:00 Outpatient [facility]LMLC STLMLC [id number] [facility] 2020-09-11 00:00:00 2020-09-11 00:00:00 Outpatient STLMLC STLMLC [id number] [facility] 2020-07-11 00:00:00 2020-07-11 00:00:00 Outpatient STLMLC STLMLC [id number] [facility] 2020-04-28 15:42:50 2020-04-28 16:02:50 Office Visit Momo Norwood [facility] 1.2.840.114 350.1.13.10 4.2.7.2.686 [id number] [facility] 2020-04-28 15:40:00 2020-04-28 15:40:00 Outpatient [facility] [id number] [facility] 2020-04-22 00:00:00 2020-04-22 00:00:00 Refill Momo Norwood [facility] Building 1.2.840.114 350.1.13.10 4.2.7.2.686 [id number] [facility] 2020-04-21 14:37:00 2020-04-21 14:37:00 [facility] [id number] [facility] 2020-04-11 16:20:00 2020-04-11 16:20:00 Outpatient M[facility]O [facility] [id number] [facility] 2020-04-10 13:15:00 2020-04-10 13:15:00 Outpatient [facility] [id number] [facility] 2020-04-04 00:00:00 2020-04-04 00:00:00 Telephone Momo Norwood [facility] 1.2.840.114 350.1.13.10 4.2.7.2.686 [id number] [facility] 2020-04-03 08:45:00 2020-04-03 08:45:00 [facility] [id number] [facility] 2020-02-16 00:00:00 2020-02-16 00:00:00 Momo Granado [facility] 1.2.840.114 350.1.13.10 4.2.7.2.686 [id number] [facility] 2020-01-26 08:03:00 2020-01-26 08:03:00 [facility] [id number] [facility] 2020-01-25 10:00:00 2020-01-25 10:00:00 [facility] [id number] [facility] 2020-01-06 10:15:00 2020-01-06 10:15:00 [facility] [id number] [facility] 2019-12-31 10:00:00 2019-12-31 10:00:00 [facility] [id number] [facility] 2019-12-31 10:00:00 2019-12-31 10:00:00 [facility] [id number] [facility] 2019-12-21 10:15:00 2019-12-21 10:15:[address] [facility] [id number] [facility] 2019-12-14 15:45:00 2019-12-14 15:45:00 [facility] [id number] [facility] 2019-10-28 10:32:00 2019-10-28 10:32:00 [facility] [id number] [facility] 2019-09-30 09:15:00 2019-09-30 09:15:00 [facility] [id number] [facility] 2019-09-03 15:19:00 2019-09-03 15:19:00 [facility] [id number] [facility] 2019-08-30 13:15:00 2019-08-30 13:15:00 [facility] [id number] [facility] 2019-07-20 08:45:00 2019-07-20 08:45:00 [facility] [id number] [facility] 2019-07-14 08:46:00 2019-07-14 08:46:00 [facility] [id number] [facility] 2019-07-02 09:00:00 2019-07-02 09:00:00 [facility] [id number] [facility] 2019-06-23 13:45:00 2019-06-23 13:45:00 [facility] [id number] [facility] 2019-04-27 10:43:00 2019-04-27 10:43:00 [facility] [id number] [facility] 2019-04-01 08:00:00 2019-04-01 08:00:00 [facility] [id number] [facility] 2019-02-05 10:30:00 2019-02-05 10:30:00 [facility] [id number] [facility] 2018-12-23 11:56:00 2018-12-23 11:56:00 [facility] [id number] [facility] 2018-12-23 08:45:00 2018-12-23 08:45:00 [facility] [id number] [facility] 2018-12-18 09:11:00 2018-12-18 09:11:00 [facility] [id number] [facility] 2018-12-10 11:41:00 2018-12-10 11:41:00 [facility] [id number] [facility] 2018-11-16 11:15:00 2018-11-16 11:15:00 [facility] [id number] [facility] 2018-11-06 09:45:00 2018-11-06 09:45:00 [facility] [id number] [facility] 2018-10-20 15:39:00 2018-10-20 15:39:00 [facility] [id number] [facility] 2018-10-13 14:30:00 2018-10-13 14:30:00 [facility] [id number] [facility] 2018-10-09 11:49:00 2018-10-09 11:49:00 [facility] [id number] [facility] 2018-10-05 09:24:00 2018-10-05 09:24:00 [facility] [id number] [facility] 2018-09-28 10:40:00 2018-09-28 10:40:00 [facility] [id number] [facility] 2018-09-25 08:30:00 2018-09-25 08:30:00 [facility] [id number] [facility] 2018-05-21 11:15:00 2018-05-21 11:15:00 [facility] [id number] [facility] 2018-05-13 09:37:00 2018-05-13 09:37:[address] [facility] [id number] [facility] 2018-05-06 10:11:00 2018-05-06 10:11:[address] [facility] [id number] [facility] 2018-03-11 09:45:00 2018-03-11 09:45:[address] [facility] [id number] [facility] Notes Date/Time Note Provider Source 2024-10-11 16:56:20 PA for ArmourThyroid initiated on 10/11/2024 (Rapp: [id number]) PA Rx #: [id number] Will provide updates as recd [facility] 2024-10-10 17:25:34 Received PA Rapp Code: [id number] for Wittmann Thyroid, have placed in provider's box. APIST Margaret Adkins [facility] 2024-03-11 15:01:31 Please review and sign if appropriate: *Listed as historical med Last office visit: 12/30/23 Next office visit: 07/01/24 Requested Prescriptions Pending Prescriptions Disp Refills ARMOUR THYROID 60 mg tablet [Pharmacy Med Name: Wittmann Thyroid 60 mg tablet] 90 tablet 1 Sig: TAKE 1 TABLET BY MOUTH EVERY MORNING. ARMOUR THYROID 15 mg tablet [Pharmacy Med Name: Wittmann Thyroid 15 mg tablet] 90 tablet 1 Sig: TAKE 1 TABLET BY MOUTH EVERY MORNING. Labs: Recent Labs 12/30/23 1617 TSH 0.09* TSH is slightly suppressed, would like to recheck it in about 3 months. Plan to continue current dose for now Elevated kidney function is stable, plan to recheck in 3 months Notes: Acquired hypothyroidism Chronic Stable Refill thyroid rx Dorina Sutherland LVN [facility] 2023-12-30 15:45:00 Images from the original note were not included. Venipuncture collection performed by clean technique on the left anticubitus. Total of 1 attempts were made. Slight pressure and a bandage/dressing were applied to the site(s). The patient experienced no complications. The following specimens were processed according to instructions and sent to [facility] laboratories per lab order on today: LT BLUE SST 1 RED LAV PPT DK GREEN (LiHep) DK GREEN (SodH) PEREZ DK BLUE (K2) DK BLUE (S) ACD Blood Culture NIPT/NTD Patient unable to at this time.Family stated they will bring the specimen back [facility] 2023-05-07 14:11:43 Formatting of this n ote is different from the original. Recent Visits Date Type Provider Dept 03/25/23 Office Visit Belkys Lopez MD [facility] Showing recent visits within past 540 days with a meds authorizing provider and meeting all other requirements Future Appointments Date Type Provider Dept 06/25/23 Appointment Belkys Lopez MD [facility] Showing future appointments within next 150 days with a meds authorizing provider and meeting all other requirements Last refill was rivastigmine 9.5 mg/24 hour patch 30 Patch 0 2023 No Sig: Apply 1 Patch to skin in the morning. Whitney Kan MA [facility] 2023-05-07 10:16:29 Formatting of this n ote might be different from the original. Vanna called following up on refill request. She states that pt is now out of medication. Please advise. Call back number: [phone] Marylou Isaac [facility] 2023-05-07 10:01:44 Formatting of this n ote might be different from the original. SYMONE NOV 06/25/23 Return in about 3 months (around 06/25/2023) T [facility] 2023 15:00:00 Formatting of this n ote is different from the original. Images from the original note were not included. PT possibly ate a meal around 10AM. Still wanted labs done. Aliyah Funes 2023 3:18 PM Venipuncture collection performed by clean technique on the right anticubitus. Total of 1 attempts were made. Slight pressure and a bandage/dressing were applied to the site(s). The patient experienced no complications. The following specimens were processed according to instructions and sent to [facility] laboratories per lab order on 2023 LT BLUE SST 1 RED LAV 1 PPT DK GREEN (LiHep) DK GREEN (SodH) PEREZ DK BLUE (K2) DK BLUE (S) ACD Blood Culture NIPT/NTD Pending sale to [facility]
[2024-10-20 10:48] LABS: Absolute Basophils 0.1 K/uL (0-0.5); Absolute Eosinophils 0.2 K/uL (0-0.5); Absolute Lymphocytes (CBC) 3.7 K/uL (0.7-4.9); Absolute Monocytes 0.6 K/uL (0.1-1.3); Absolute Neutrophil 6.5 K/uL (1.8-8.0); Basophils % 1.2 % (0-1.3); Eosinophils % 1.8 % (0-4.4); Hematocrit 43.7 % (36.0-45.0); MCH 30.6 pg (27.0-35.0); MCHC 34.4 g/dL (32.0-36.0); MPV 8.5 fL (7.6-11.3); Monocytes % 5.6 % (3.3-12.3); Neutrophils % 58.4 % (41.7-73.7); Nucleated Red Blood Cells % 0.1 % (0-0); Platelets 294 thou/uL (152-406); RBC Red Blood Cell Count 4.91 M/uL (3.86-4.86); Red Cell Distribution Width 12.9 % (12.1-15.2)
[2024-10-20 10:59] LABS: PT Prothrombin Time 11.1 SECONDS (10.0-13.0); PTT, Activated Partial Thromb 22.1 SECONDS (24.3-36.9); Protime INR 0.97
[2024-10-20] MEDS ORDERED: NA CHLORIDE 0.9% 500 ML ONE (11:06)
[2024-10-20 11:07] LABS: ALT/SGPT 45 U/L (13-56); AST/SGOT 43 U/L (15-37); Albumin 3.3 g/dL (3.4-5.0); Albumin/Globulin Ratio 0.8 (1.1-1.8); Alkaline Phosphatase 88 U/L (45-117); BUN Blood Urea Nitrogen 9 mg/dL (7-18); Bicarbonate 21 mEq/L (21-32); Bilirubin Total 0.4 mg/dL (0.2-1.0); Glomerular Filtration Rate 39 ml/min (=/>90); Glucose Level 197 mg/dL (74-106); Protein, Total 7.3 g/dL (6.4-8.2); Sodium Level 144 mEq/L (136-145); Troponin High Sensitivity 15.4 pg/mL (<58.9)
[2024-10-20 11:08] LABS: Bilirubin Direct < 0.2 mg/dL (0-0.2); Bilirubin Indirect, Calculated 0.2 mg/dL (0.2-0.8)
--- NOTE | 2024-10-20 11:18 | RAD REPORT ---
EXAM: CT Ct Stroke Brain Wo Cont HISTORY: STROKE ALERT COMPARISON: 03/09/2022 TECHNIQUE: Multiple contiguous axial images were obtained for a CT of the brain without contrast. Sag ittal and coronal reformats were performed. One or more of the following dose reduction techniques were used: Automated exposure control, adjus tment of the mA and kV according to patient size, and iterative reconstruction. Unless otherwise specified, incidental findings do not require dedicated imaging follow-up. FINDINGS: No evidence of hydrocephalus, intracranial hemorrhage, or extra-axial fluid collection. Moderate centrally predominant volume loss again seen. Stable ventricular caliber. Patchy periventric ular and deep white matter hypodensities, stable to mildly progressive especially along the left frontal lobe, nonspecific, but suggestive of chronic small vessel ischemic changes. The calvarium is intact. The visualized paranasal sinuses and mastoid air cells are essentially clear . IMPRESSION: No evidence of acute intracranial abnormality. Chronic findings as above. THIS REPORT CONTAINS FINDINGS THAT MAY BE CRITICAL TO PATIENT CARE. The findings were verbally commun icated via telephone to Yordan Gandhi MD on 10/20/2024 11:08AM.
--- NOTE | 2024-10-20 11:19 | ER ---
Nurse's Notes [facility] Name: Laisha Vasquez Age: 74 yrs Sex: Female : 1950 Arrival Date: 10/20/2024 Time: 10:33 Bed 2 Private MD: Diagnosis: Cerebral infarction, unspecified;Weakness;Aphasia Presentation: 10/20 10:35 Chief complaint: EMS states: toned out to patient home for unresponsive but breathing. ld1 Coronavirus screen: At this time, the client does not indicate any symptoms associated with coronavirus-19. Ebola Screen: No symptoms or risks identified at this time. 10:35 Method Of Arrival: EMS: [facility] ld1 10:39 Initial Sepsis Screen: Does the patient meet any 2 criteria? No. Patient's initial ld1 sepsis screen is negative. Does the patient have a suspected source of infection? No. Patient's initial sepsis screen is negative. Risk Assessment: Do you want to hurt yourself or someone else? Patient reports no desire to harm self or others. Onset of symptoms was October 20, 2024. 10:39 Acuity: BEV 2 ld1 Triage Assessment: 10:39 General: Appears in no apparent distress. comfortable, Behavior is calm. Pain: Unable ld1 to use pain scale. Patient is disoriented. Does not appear to understand pain scale. EENT: No signs and/or symptoms were reported regarding the EENT system. Neuro: Level of Consciousness is awake, confused, Oriented to none. Cardiovascular: Capillary refill < 3 seconds. Respiratory: Airway is patent Respiratory effort is even, unlabored. GI: Abdomen is round non-distended. : No signs and/or symptoms were reported regarding the genitourinary system. Derm: Skin is clammy, Skin temperature is cool. Musculoskeletal: No signs and/or symptoms reported regarding the musculoskeletal system. Historical: - Allergies: 10:35 amlodipine; ld1 10:35 Codeine; ld1 10:35 Demerol; ld1 10:35 metronidazole; ld1 - PMHx: 10:35 Dementia; Hypertension; Hypothyroidism; Alzheimer's disease; ld1 - Immunization history:: Adult Immunizations up to date. - Infectious Disease History:: Denies. - Social history:: Smoking status: Patient denies any tobacco usage or history of. - Family history:: not pertinent. - Hospitalizations: : No recent hospitalization is reported. Screenin:35 [facility] ED Fall Risk Assessment (Adult) History of falling in the last 3 months, ld1 including since admission No falls in past 3 months (0 pts) Confusion or Disorientation No (0 pts) Intoxicated or Sedated No (0 pts) Impaired Gait No (0 pts) Mobility Assist Device Used No (0 pt) Altered Elimination No (0 pt) Score/Fall Risk Level 0 - 2 = Low Risk Oriented to surroundings, Hourly rounding (assess needs \T\ fall precautionary measures) done. 10:35 Abuse screen: Denies threats or abuse. Denies injuries from another. Nutritional ld1 screening: No deficits noted. Tuberculosis screening: No symptoms or risk factors identified. 10:40 Evans Swallow Protocol 3 oz Water Swallow Challenge: Pt able to drink all water without ld1 stopping, coughing, choking or throat clearing: No Result: FAIL. Assessment: 10:36 Reassessment: Code stroke called. ld1 10:36 Reassessment: Family reports patient usually independent. Able to perform ADL's alone. ld1 Upon arrival to ER pt unable to hold up arms or legs, unable to talk, leaning to right side. EMS reports drooling on scene and blue in color. 10:38 General: Appears. ld1 10:40 Reassessment: Pt to CT. ld1 10:40 Reassessment: LKN - 2200 last night 10/19/2024. ld1 11:45 Reassessment: No changes from previously documented assessment. family at bedside. ld1 awaiting lifeflight. 12:15 Reassessment: No changes from previously documented assessment. Patient states symptoms ld1 have not improved. Vital Signs: 10:32 BP 144 / 67; Pulse 93; Resp 22; Pulse Ox 93% on R/A; ld1 10:35 BP 144 / 67; Pulse 88; Resp 18; Temp 97.9(O); Pulse Ox 99% on R/A; Weight 61.23 kg; ld1 Height 5 ft. 5 in. ; Pain 0/10; 11:00 BP 141 / 63; Pulse 90; Resp 24; Pulse Ox 91% on R/A; ld1 11:15 BP 158 / 79; Pulse 94; Resp 23; Pulse Ox 93% on R/A; ld1 11:30 BP 151 / 62; Pulse 82; Resp 18; Pulse Ox 92% on R/A; ld1 11:46 BP 149 / 70; Pulse 83; Resp 23; Pulse Ox 94% on R/A; ld1 12:15 BP 150 / 69; Pulse 81; Resp 23; Pulse Ox 91% on R/A; ld1 10:35 Body Mass Index 22.46 (61.23 kg, 165.1 cm) ld1 10:35 Pain Scale: Adult ld1 Laney Coma Score: 11:34 Eye Response: to voice(3). Motor Response: withdraws from pain(4). Verbal Response: ld1 confused(4). Total: 11. NIH Stroke Scale Scores: 11:06 NIHSS Score: 11 cleaner furniture Course: 10:34 Patient arrived in ED. bd 10:34 Katalina Michele, RN is Primary Nurse. ld1 10:35 Yordan Gandhi MD is Attending Physician. rn 10:39 Triage completed. ld1 10:39 Arm band placed on right wrist. ld1 10:40 No provider procedures requiring assistance completed. Maintain EMS IV. Dressing ld1 intact. Good blood return noted. Site clean \T\ dry. Gauge \T\ site: 20G RAC. 10:43 Initial lab(s) drawn, by il, sent to lab. zm 10:43 Basic Metabolic Panel Sent. zm 10:43 CBC with Diff Sent. zm 10:43 Hepatic Function Sent. zm 10:44 High Sensitivity Troponin Sent. zm 10:44 Protime (+inr) Sent. zm 10:44 Ptt, Activated Sent. zm 10:59 CT Head Angio In Process Unspecified. EDMS 10:59 CT Neck Angio In Process Unspecified. EDMS 10:59 CT Stroke Brain w/o Contrast In Process Unspecified. EDMS 11:03 Stroke CXR 1 View In Process Unspecified. EDMS 11:07 initiated transfer to [facility]. bd 11:15 Capps cath inserted, using sterile technique, 16 Fr., by promotions firm accounts manager, balloon inflated, to ld1 gravity drainage, urine specimen collected. 11:18 pt accepted in transfer to [facility] ER by dr Guadalupe admin approval given by Greg Baeza. 11:22 Urinalysis w/ reflexes Sent. ld1 11:22 UDS Sent. ld1 11:29 Inserted saline lock: 18 gauge in left antecubital area, using aseptic technique. zm Flushed with 10 mL NS. 11:39 Urinalysis w/ reflexes Sent. ld1 11:39 UDS Sent. ld1 12:25 Patient has correct armband on for positive identification. Placed in gown. Bed in low ld1 position. Call light in reach. Side rails up X2. fruit picker machine operator on. Pulse ox on. NIBP on. Door closed. Noise minimized. Warm blanket given. 12:25 Patient transferred, IV remains in place. ld1 Administered Medications: 11:22 Drug: NS 0.9% IV 500 ml 500 ml IV at 1 bolus once; to be given as a bolus over 30 ld1 minutes Volume: 500 ml; Route: IV; Rate: 1 bolus; Site: right antecubital; 12:15 Follow up: Response: No adverse reaction; IV Status: Completed infusion; IV Intake: ld1 500ml 11:38 Not Given (NPOo): aspirinchewable tablet 162 mg PO once; Already had same dose at home bp 11:38 Drug: foLIC Acid IVPB 1 mg IVPB once Route: IVPB; Site: right antecubital; bp 12:15 Follow up: IV Status: Completed infusion ld1 Medication: 11:45 VIS not applicable for this client. ld1 Intake: 12:15 IV: 500ml; Total: 500ml. ld1 Outcome: 11:18 ER care complete, transfer ordered by MD. regalado 12:23 Transferred by helicopter ld1 12:23 Condition: unchanged 12:26 Patient left the ED. ld1 NIH Stroke Scale - NIH Stroke Score Date: 10/20/2024 Time: 11:06 Total Score = 11 10. Dysarthria (speech clarity - read or repeat words) - 0(Normal) 11. Extinction and Inattention (visual/tactile/auditory/spatial/personal) - 0(No abnormality) 1a. Level of Consciousness (LOC) - 0(Alert) 1b. Level of Consciousness (LOC) (Month \T\ Age) - 2(Neither) 1c. LOC Commands (Open \T\ Closes Eyes/Pay Per Click Strategist) - 0(Both) 2. Best Gaze (Lateral Gaze Paresis) - 0(Normal) 3. Visual Field Loss - 0(No visual loss) 4. Facial Palsy - 0(Normal) 5a. Left Arm: Motor (10-second hold) - 0(No drift) 5b. Right Arm: Motor (10-second hold) - 3(No effort against gravity) 6a. Left Leg: Motor (5-second hold - always test supine) - 0(No drift) 6b. Right Leg: Motor (5-second hold - always test supine) - 3(No effort against gravity) 7. Limb Ataxia (finger/nose \T\ heel/hoff - test with eyes open) - 0(Absent) 8. Sensory Loss (pinprick arms/legs/face) - 0(Normal) 9. Best Language: Aphasia (description/naming/reading) - 3([place]ute, global aphasia) Initials: rn Signatures: Dispatcher [employer] EDWhitney Jones Roman, MD MD rn Peltier, Brian, RN RN bp Sims, Lauren, RN RN ld1 Beth Silva Corrections: (The following items were deleted from the chart) 11:45 11:43 initiated transfer to [facility] bill khan
--- NOTE | 2024-10-20 11:19 | EDPHYS ---
Physician Documentation [facility] Name: Laisha Vasquez Age: 74 yrs Sex: Female : 1950 Arrival Date: 10/20/2024 Time: 10:33 Bed 2 Private MD: ED Physician Yordan Gandhi HPI: 10/20 11:06 This 74 yrs old Female presents to ER via EMS with complaints of Altered Mental Status. rn 10:36 Last known normal last night at 10 PM when spouse put her to sleep. At 7 AM this rn morning he tried waking her up and she was aphasic with complete right side paralysis. EMS reports she seemed altered with decreased responsiveness and right-sided weakness that seems to have improved since picking her up. denies any trauma or head injury. No recent illness. States went to bed fine and at her baseline at 10 PM last night. Does report 8 years of dementia but states she has never done anything like this before. He gave her aspirin this morning when he woke her up and he was concerned for stroke.. Historical: - Allergies: 10:35 amlodipine; ld1 10:35 Codeine; ld1 10:35 Demerol; ld1 10:35 metronidazole; ld1 - PMHx: 10:35 Dementia; Hypertension; Hypothyroidism; Alzheimer's disease; ld1 - Immunization history:: Adult Immunizations up to date. - Infectious Disease History:: Denies. - Social history:: Smoking status: Patient denies any tobacco usage or history of. - Family history:: not pertinent. - Hospitalizations: : No recent hospitalization is reported. ROS: 11:06 Unable to obtain ROS due to patient's inability to understand questions, rn Exam: 11:06 Constitutional: This is a well developed, well nourished patient who is awake, alert, rn inappropriate responses and not following commands Cardiovascular: Regular rate and rhythm. No pulse deficits. Respiratory: No increased work of breathing, no retractions or nasal flaring. MS/ Extremity: Pulses equal, no cyanosis. Neuro: Awake, slow to respond and does not follow commands. Right-sided hemiparesis but does respond and withdraw from pain. Patient aphasic 11:48 ECG was reviewed by the Attending Physician. rn Vital Signs: 10:32 BP 144 / 67; Pulse 93; Resp 22; Pulse Ox 93% on R/A; ld1 10:35 BP 144 / 67; Pulse 88; Resp 18; Temp 97.9(O); Pulse Ox 99% on R/A; Weight 61.23 kg; ld1 Height 5 ft. 5 in. ; Pain 0/10; 11:00 BP 141 / 63; Pulse 90; Resp 24; Pulse Ox 91% on R/A; ld1 11:15 BP 158 / 79; Pulse 94; Resp 23; Pulse Ox 93% on R/A; ld1 11:30 BP 151 / 62; Pulse 82; Resp 18; Pulse Ox 92% on R/A; ld1 11:46 BP 149 / 70; Pulse 83; Resp 23; Pulse Ox 94% on R/A; ld1 12:15 BP 150 / 69; Pulse 81; Resp 23; Pulse Ox 91% on R/A; ld1 10:35 Body Mass Index 22.46 (61.23 kg, 165.1 cm) ld1 10:35 Pain Scale: Adult ld1 NIH Stroke Scale Scores: 11:06 NIHSS Score: 11 rn [place] Coma Score: 11:34 Eye Response: to voice(3). Motor Response: withdraws from pain(4). Verbal Response: ld1 confused(4). Total: 11. MDM: 10:35 Medical Screening Exam initiated rn 10:38 ED course: Patient is not a TNK candidate due to the fact that her last known normal rn was 10 PM last night. She is outside TNK window.. 11:09 Differential Diagnosis: CVA, intracranial bleed, seizure. Data reviewed: vital signs, rn nurses notes. 11:10 ED course: Have not received read of CT head from radiology but viz. AI read as rn possible LVO. Transfer initiated. Aspirin and folic acid ordered. Spouse reports already took approximately 243 mg of aspirin at home prior to coming in.. 11:11 ED course: CT head without contrast negative for acute CVA per Dr. Rodríguez. rn 11:12 ED course: Transfer initiated to [facility]. rn 11:54 ED course: [facility] had a delay with the first helicopter that they were sending, had rn to send in a second helicopter.. 10/20 10:36 Order name: Basic Metabolic Panel; Complete Time: 11:13 rn 10/20 10:36 Order name: CBC with Diff; Complete Time: 11:13 rn /26 10:36 Order name: Hepatic Function; Complete Time: 10/20 10:36 Order name: High Sensitivity Troponin; Complete Time: 10/20 10:36 Order name: Protime (+inr); Complete Time: 10/20 10:36 Order name: Ptt, Activated; Complete Time: 10/20 10:36 Order name: UDS; Complete Time: 10/20 10:36 Order name: Urinalysis w/ reflexes; Complete Time: 10/20 10:36 Order name: CT Head Angio; Complete Time: 10/20 10:36 Order name: CT Neck Angio; Complete Time: 10/20 10:36 Order name: CT Stroke Brain w/o Contrast; Complete Time: 10/20 10:36 Order name: Stroke CXR 1 View; Complete Time: 1210/20 10:36 Order name: Accucheck; Complete Time: 10/20 10:36 Order name: Cardiac monitoring; Complete Time: 10/20 10:36 Order name: EKG - Nurse/Tech; Complete Time: 10/20 10:36 Order name: IV Saline Lock; Complete Time: 10/20 10:36 Order name: Labs collected and sent; Complete Time: 10/20 10:36 Order name: NPO; Complete Time: 10/20 10:36 Order name: O2 Per Protocol; Complete Time: 10/20 10:36 Order name: O2 Sat Monitoring; Complete Time: 10/20 10:36 Order name: Stroke Swallow Screen; Complete Time: 11:47 rn EC:48 Rate is 89 beats/min. Rhythm is regular. QRS [place] is Normal. NC interval is normal. QRS rn interval is normal. QT interval is normal. No Q waves. No ST changes noted. Clinical impression: NSR w/ Non-specific ST/T Changes. Interpreted by me. Reviewed by me. Administered Medications: 11: Drug: NS 0.9% IV 500 ml 500 ml IV at 1 bolus once; to be given as a bolus over 30 ld1 minutes Volume: 500 ml; Route: IV; Rate: 1 bolus; Site: right antecubital; 12:15 Follow up: Response: No adverse reaction; IV Status: Completed infusion; IV Intake: ld1 500ml 11:38 Not Given (NPOo): aspirinchewable tablet 162 mg PO once; Already had same dose at home bp 11:38 Drug: foLIC Acid IVPB 1 mg IVPB once Route: IVPB; Site: right antecubital; bp 12:15 Follow up: IV Status: Completed infusion ld1 Disposition: 11:16 Critical Care:. rn Disposition Summary: 10/20/24 11:18 Transfer Ordered Notes: Transfer Location: [facility] rn Reason: Higher level of care rn Condition: Fair rn Problem: new rn Symptoms: are unchanged rn Accepting Physician: Dr. Ross(10/20/24 12:26) ld1 Diagnosis - Cerebral infarction, unspecified rn - Weakness rn - Aphasia rn Forms: - Medication Reconciliation Form rn - SBAR form apple turner time excluding procedures: 11:16 Critical care time: Bedside Care: 25 minutes, Consultation: 5 minutes, Family rn Intervention: 5 minutes. Total time: 35 minutes NIH Stroke Scale - NIH Stroke Score Date: 10/20/2024 Time: 11:06 Total Score = 11 10. Dysarthria (speech clarity - read or repeat words) - 0(Normal) 11. Extinction and Inattention (visual/tactile/auditory/spatial/personal) - 0(No abnormality) 1a. Level of Consciousness (LOC) - 0(Alert) 1b. Level of Consciousness (LOC) (Month \T\ Age) - 2(Neither) 1c. LOC Commands (Open \T\ Closes Eyes/Mobile Lounge Driver) - 0(Both) 2. Best Gaze (Lateral Gaze Paresis) - 0(Normal) 3. Visual Field Loss - 0(No visual loss) 4. Facial Palsy - 0(Normal) 5a. Left Arm: Motor (10-second hold) - 0(No drift) 5b. Right Arm: Motor (10-second hold) - 3(No effort against gravity) 6a. Left Leg: Motor (5-second hold - always test supine) - 0(No drift) 6b. Right Leg: Motor (5-second hold - always test supine) - 3(No effort against gravity) 7. Limb Ataxia (finger/nose \T\ heel/hoff - test with eyes open) - 0(Absent) 8. Sensory Loss (pinprick arms/legs/face) - 0(Normal) 9. Best Language: Aphasia (description/naming/reading) - 3([place], global aphasia) Initials: rn Signatures: Dispatcher [employer] EDMS Yordan Gandhi MD MD rn Peltier, Brian, RN RN bp Sims, Lauren, RN RN ld1 Corrections: (The following items were deleted from the chart) 10:36 10:36 Neck Angio+CT.RAD.BRZ ordered. EDMS EDMS 10:37 10:37 CT-STROKE BRAIN W/O CONTRAST+CT.RAD.BRZ ordered. EDMS EDMS 10:37 10:37 Chest Single View+RAD.RAD.BRZ ordered. EDMS EDMS 12:26 11:18 Dr. Ross rn ld1
--- NOTE | 2024-10-20 11:23 | RAD REPORT ---
EXAMINATION: CTA HEAD CLINICAL INDICATION: Female, 74 years old. Aphasia;Weakness TECHNIQUE: Axial CT images were obtained through the head after intravenous contrast utilizing angiog raphic protocol with 3D post-processing (maximum intensity projection images, volume rendered images and/or shaded surface rendered images). One or more of the following dose reduction technique s were used: Automated exposure control, adjustment of the mA and/or kV according to patient size, and/or iterative reconstruction. Unless otherwise specified, incidental findings do not require dedic ated imaging follow-up. COMPARISON: Noncontrast head CT of the same day FINDINGS: ICA: The petrous, cavernous, and supraclinoid segments of the bilateral internal carotid arteries are normal. DECLAN: Anterior cerebral arteries are normal bilaterally. The anterior communicating artery is patent. MCA: Multifocal narrowing of the left MCA inferior division, up to moderate at the origin, and modera te to severe approximately 1 cm distal to the origin, see series 508 images 77 and 80 and series 507 images 51 and 52 among others. Similar changes of mild to moderate narrowing along the proximal r ight MCA branches. No evidence of large vessel occlusion. SENIOR HRIS ANALYST: Multifocal mild to moderate narrowing along the left P1 and distal left P2, most pronounced dist ally. Patent proximal SENIOR HRIS ANALYST on the right. Vertebrobasilar: The vertebral arteries are patent. The basilar artery is normal in appearance. 3D images confirm these findings. IMPRESSION: Multifocal narrowing of the left MCA inferior division, up to moderate to severe approximately 1 cm d istal to the origin. Multifocal mild to moderate narrowing of the left P1 and distal P2 segments. Other vessels of the anterior and posterior circulation are patent. THIS REPORT CONTAINS FINDINGS THAT MAY BE CRITICAL TO PATIENT CARE. The findings were verbally commun icated via telephone to Yordan Gandhi MD on 10/20/2024 11:11AM.
--- NOTE | 2024-10-20 11:25 | RAD REPORT ---
EXAMINATION: CT Neck Angio CLINICAL INDICATION: Female, 74 years old. [facility] MAIN weakness, AMS Bed Name: 2 TECHNIQUE: Axial CT images were obtained from the aortic arch to the skull base after intravenous con trast utilizing angiographic protocol. Multiplanar reformats, as well as 3D post-processing (maximum intensity projection images, volume rendered images and/or shaded surface rendered images) w ere generated and reviewed. One or more of the following dose reduction techniques were used: Automated exposure control, adjustment of the mA and/or kV according to patient size, and/or iterativ e reconstruction. Unless otherwise specified, incidental findings do not require dedicated imaging follow-up. COMPARISON: No prior exam. FINDINGS: AORTA: The imaged aortic arch is normal. Normal three-vessel configuration of the arch. CCA: No artifact The common carotid arteries are patent and normal in caliber. Markedly tortuous prox imal right CCA. ICA/ECA: Bilateral internal and external carotid arteries are patent. There is no significant interna l carotid artery stenosis. VERTEBRAL: The cervical vertebral arteries are patent to the skull base. Vertebral arteries are codom inant. SOFT TISSUE: No significant neck soft tissue abnormalities. The visualized lung apices are clear. 3D images confirm these findings. IMPRESSION: No significant flow abnormality of the neck vessels is identified. NASCET criteria used to quantify ICA stenosis, with the following grading scheme: Mild 0-49% stenosis Moderate 50-69% stenosis Severe 70-99% stenosis Reference: [place] Symptomatic Carotid Endarterectomy Trial Collaborators; Rebecca SIERRA, Юлия CRUZ, Gerri RB, et al. Beneficial effect of carotid endarterectomy in symptomatic patients with high-grade carotid stenosis. N Engl J Med. 1990Apr 08;325(7):445-53.
[2024-10-20] MEDS ORDERED: ASPIRIN 81 MG CHEWABLE TABLET ONE (11:32)
[2024-10-20] MEDS ORDERED: FOLIC ACID 5 MG/ML VIAL ONE (11:34)
[2024-10-20 11:49] LABS: Specific Gravity > 1.030 (1.005-1.030); Sqamous Epithelial <5 /HPF (None Seen); Urine Bacteria None Seen /HPF (<20); Urine Bilirubin NEGATIVE (Negative); Urine Blood Negative (Negative); Urine Clarity Clear (Clear); Urine Color Colorless (Yellow); Urine Culture Reflex Order NOT NEEDED; Urine Glucose TRACE (Negative); Urine Ketones TRACE (Negative); Urine Microscopic Reflex YN ORDER UMIC; Urine Nitrite NEGATIVE (Negative); Urine Protein NEGATIVE (Negative); Urine RBC <5 /HPF (None Seen); Urine Urobilinogen Normal (Normal); Urine WBC <5 /HPF (<5)
[2024-10-20 11:53] LABS: Barbiturates NEGATIVE (NEGATIVE); Benzodiazepines NEGATIVE (NEGATIVE); Cocaine NEGATIVE (NEGATIVE); METHAMPHETAM NEGATIVE (NEGATIVE); Methadone NEGATIVE (NEGATIVE); Opiates NEGATIVE (NEGATIVE); Phencyclidine NEGATIVE (NEGATIVE); THC Cannibis NEGATIVE (NEGATIVE)
--- NOTE | 2024-10-20 12:11 | RAD REPORT ---
EXAMINATION: ONE VIEW CHEST XR CLINICAL INDICATION: Female, 74 years old.,weakness, AMS TECHNIQUE: Frontal chest projection is submitted. Examination is limited by patient positioning and t echnique. COMPARISON: 03/09/2022 FINDINGS: The lungs are grossly clear although suboptimal inspiratory effort somewhat limits evaluation. No pn eumothorax or sizable effusion. The heart is normal in size. Mediastinal contours are unremarkable. IMPRESSION: No acute intrathoracic abnormalities.
[2024-10-20 12:42] VITALS: TEMP 97.9
[2024-10-20 12:50] VITALS: BP 150/69; O2SAT 91
--- NOTE | 2024-10-21 16:48 | EKG ---
Test Date: 2024-10-20 Test Time: 10:39:20 Atomizer Assembler: [place] MEASUREMENT RESULTS: Intervals: Rate: 89 NM: 158 QRSD: 80 QT: 384 QTc: 467 [place]: P: 56 NM: 158 QRS: 17 T: 224 INTERPRETIVE STATEMENTS: Normal sinus rhythm Septal infarct, age undetermined ST & T wave abnormality, consider inferolateral ischemia Abnormal ECG Compared to ECG 12/27/2022 22:37:04 Myocardial infarct finding now present ST (T wave) deviation now present Possible ischemia now present Electronically Signed On 10-21-24 16:45:15 SPRING FORGER by Modesto Webster
== END 2024-10-20 12:26 | disposition short-term general hospital (02) ==
LOC: ER 10:33
DX: I63.9 Cerebral infarction, unspecified (principal); R47.01 Aphasia; R53.1 Weakness; R29.711 NIHSS score 11; I10 Essential (primary) hypertension; G30.9 Alzheimer's disease, unspecified; F02.80 Dementia in other diseases classified elsewhere, unspecified severity, without behavioral disturbance, psychotic disturbance, mood disturbance, and anxiety
CPT/HCPCS: 85025; 81001; 80048; 36415; 85610; 80076; 85730; 84484; 80307; 70496; 70498; 70450; 71045; Q9967; J7040; 51702; 82565; 93005; 96365; 99285